=== PATIENT | female | born 1965 | race Two or more races ===

== ENCOUNTER 2020-08-28 18:22 | Emergency (ER) | payer MEDICARE, MEDICAID, SELFPAY ==
[2020-08-28 20:10] VITALS: BP 118/68; PULSE 75; RESP 16; TEMP 36.8; O2SAT 98; BMI 29.2
[2020-08-28] MEDS: Lidocaine HCl 1 % MPF 5 ML VIAL SUBCUT (21:17)
[2020-08-28] MEDS: Lidocaine 4 % Cream KIT 1 APPL TOPICAL (21:17)
[2020-08-28 22:23] VITALS: BP 116/63; PULSE 70; RESP 16; TEMP 37.3; O2SAT 98
--- NOTE | 2020-08-28 22:32 | ED.SKABFB ---
HPI - Skin/Abscess/Foreign Bdy General Chief complaint: Skin/Abscess/Foreign Body Stated complaint: cyst Time Seen by Provider: 08/28/20 21:06 Source: patient Mode of arrival: ambulatory Limitations: no limitations History of Present Illness HPI narrative: Left medial breast cutaneous abscess. States history of this had an appointment today to get it drained at the breast center at [facility] however the provider was out sick so had to be canceled so [facility] emergency room for drainage. Denies any fever or chills. States she has had similar type cyst in the past requiring I&D. Has had a mammo in the past as well at [facility]. Denies any fever or chills. complaint: abscess/boil Onset (ago): day(s) (5) Tetanus up to date: yes Location: chest (Left breast) Severity: moderate Relieving factors: none Exacerbating factors: none Associated symptoms: denies other symptoms Treatments prior to arrival: none Related Data Previous Rx's Medication Instructions Recorded cephalexin [Keflex] 500 mg PO TID 10 Days #30 cap 08/28/20 ibuprofen 800 mg PO Q8H PRN #30 tab 08/28/20 sulfamethoxazole-trimethoprim 1 tab PO BID 7 Days #14 tab 08/28/20 [Bactrim DS] Allergies Allergy/AdvReac Type Severity Reaction Status Date / Time No Known Allergies Allergy Unverified 05/16/20 16:25 Review of Systems Review of Systems: Constitutional: No Weight loss, No Fever, No Chills, No Night Sweats, No Fatigue, No Malaise ENT/Mouth: No Hearing loss, No Ear Pain, No Nasal Congestion, No Sinus Pain, No Hoarseness, No sore throat, No Rhinorrhea, No Swallowing Difficulty Eyes: No Eye Pain, No Swelling, No Redness, No Foreign Body, No Discharge, No Vision Changes Cardiovascular: No Chest Pain, No SOB, No Dyspnea on Exertion, No Orthopnea, No Edema, No Palpitations Respiratory: No Cough, No Sputum, No Wheezing, No Smoke Exposure, No Dyspnea Gastrointestinal: No Nausea, No Vomiting, No Diarrhea, No Constipation, No abdominal Pain, No Hematochezia, No Melena Genitourinary: no irregular bleeding, No Dysuria, No Urinary Frequency, No Hematuria, No Urinary Incontinence, No Urgency, No Flank Pain Musculoskeletal: No joint pain, No Myalgias, No Joint Swelling Skin: as noted in HPI Neuro: No Headache Psych: No Social Issues Heme/Lymph: No Bruising, No Bleeding,No Lymphadenopathy Endocrine: No Polyuria, No Polydipsia, No Temperature Intolerance Yes all other systems are reviewed and are negative [facility] Social History Social History Alcohol intake: never Smoked in Last 30 Days: No Use of substances other than those prescribed or required for medical reasons: No Advance Directives: No Advance Directives Information Provided: Yes Physical Exam Vital Signs: Vital Signs: Last Vital Signs Temp 99.1 F 08/28/20 22:23 Pulse 70 08/28/20 22:23 Resp 16 08/28/20 22:23 BP 116/63 08/28/20 22:23 Pulse Ox 98 08/28/20 22:23 Body Mass Index 29.2 Reviewed Const: General: cooperative and healthy appearing; No acute distress or intoxicated appearing Nutritional Appearance: average body habitus Orientation/consciousness: patient oriented x3 Neck: Neck: Yes normal visual inspection, No positive Brudzinski's sign, No positive Kernig's sign and No tender Thyroid: Thyroid normal Chest: Chest palpation & inspection: normal inspection of the chest Chest/axillae images: 1. 3 cm annular superficial indurated formed abscess. 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 No complications. Drained small amount of purulent discharge.) MDM - Skin/Abscess/Foreign Bdy Differential Diagnosis Differential diagnosis: Likely abscess of skin or subcutaneous tissue and cellulitis; Unlikely viral exanthem, urticaria, herpes zoster, allergic reaction to drug and impetigo Medical Records Attestation: I reviewed the patient's medical records. Lab Data Attestation: I reviewed the patient's lab results. Discharge Plan Discharge Clinical Impression: Abscess of skin or subcutaneous tissue Patient Disposition: Home, Self-Care Instructions: Abscess Incision and Drainage (DC) Additional Instructions: Keep site clean and dry May wash with soap and water Start with the antibiotic as prescribed Follow-up with the breast Center at [facility] as planned Return if any concerns or worsening symptoms Thank you Prescriptions: New cephalexin [Keflex] 500 mg capsule 500 mg PO TID 10 Days Qty: 30 RF: 0 sulfamethoxazole-trimethoprim [Bactrim DS] 800-160 mg tablet 1 tab PO BID 7 Days Qty: 14 RF: 0 ibuprofen 800 mg tablet 800 mg PO Q8H PRN (Reason: pain) Qty: 30 RF: 0 Referrals: Villa Perez MD [Primary Care Provider] - 1 week Interventions: ED Discharge Assessment Last Done: 08/28/20 22:55 Discharge Date/Time: 08/28/20 22:55
== END 2020-08-28 22:55 | disposition home or self-care (01) ==
PROVIDERS: Emergency Provider Emergency Medicine; PCP Family Medicine
DX: N61.1 Abscess of the breast and nipple (principal)
CPT/HCPCS: 10060; 99284

== ENCOUNTER 2021-04-15 17:09 | Emergency (ER) | payer MEDICARE, MEDICAID, SELFPAY ==
--- NOTE | 2021-04-15 18:45 | ED.URI ---
HPI - URI/Sore Throat General Chief Complaint: Upper Respiratory Symptoms Stated Complaint: covid symptoms Time Seen by Provider: 04/15/21 18:45 Source: patient Mode of arrival: ambulatory Limitations: no limitations History of Present Illness HPI Narrative: 55 y/o femal elliot is fully vaccinated against COVID-19 presents to the ER with COVID symptoms after known exposure to 4 of her family members who were diagnosed with the disease. She has had 5 days of dry cough, chest tightness, subjective fevers and body aches. She is not short of breath. She is breathing with ease. MD elicited complaint: fever and cough Onset (ago): day(s) (5) Consistency: intermittent Severity: moderate Able to tolerate fluids by mouth: Yes Exacerbating factors: exertion Relieving factors: OTC cold medicine Context: sick contacts Associated symptoms: fever, chills, myalgias, headache and chest pain Treatments prior to arrival: none Related Data Previous Rx's Medication Instructions Recorded cephalexin 500 mg capsule (Keflex) 500 mg PO TID 10 Days #30 cap 08/28/20 ibuprofen 800 mg tablet 800 mg PO Q8H PRN #30 tab 08/28/20 sulfamethoxazole 800 1 tab PO BID 7 Days #14 tab 08/28/20 mg-trimethoprim 160 mg tablet (Bactrim DS) Allergies Allergy/AdvReac Type Severity Reaction Status Date / Time No Known Allergies Allergy Verified 04/15/21 18:54 Review of Systems Review of Systems: Constitutional: + Fever, + Chills ENT/Mouth: No sore throat, No Rhinorrhea, No Swallowing Difficulty Cardiovascular: + Chest Pain (tightness), No SOB, No Orthopnea, No Edema Respiratory: + Cough, No Sputum, No Wheezing, No dyspnea Gastrointestinal: No Nausea, No Vomiting, No Diarrhea, No abdominal Pain Genitourinary: No Dysuria, No Urinary Frequency, No Hematuria Musculoskeletal: No joint pain, + Myalgias Skin: No Skin Lesions, No rash Neuro: No Weakness, No Numbness, No Dizziness, + Headache Psych: + Anxiety/Panic Heme/Lymph: No Lymphadenopathy PMFSH Past Medical History Attestation statement: The following information was validated with the patient. Medical History Arthritis Tachycardia Social History Social History Alcohol intake: never Advance Directives: No Advance Directives Information Provided: Yes Patient : No Physical Exam Vital Signs: Vital Signs: Last Vital Signs Temp 96.7 F L 04/15/21 18:54 Pulse 68 04/15/21 18:54 Resp 20 04/15/21 18:54 BP 114/71 04/15/21 18:54 Pulse Ox 97 04/15/21 18:54 Body Mass Index 30.1 Appearance: Alert. Oriented X3. No acute distress. Eyes: Pupils equal, round and reactive to light. ENT: Pharynx normal. Neck: Normal inspection. Neck supple. CVS: Normal heart rate and rhythm. Pulses normal. Respiratory: No respiratory distress. Breath sounds normal. Abdomen: Soft and nontender. +BS x4 Skin: Skin warm and dry. Normal skin color. Normal skin turgor. No rashes. Extremities: No lower extremity edema. Neuro: Oriented X 3. No motor deficit. No sensory deficit. Course Course Course Narrative: 55 y/o female with history of COVID vaccination who presents with COVID symptoms in the setting of known exposure. Her VS are normal and her exam is benign. COVID swab pending. Reevaluation(s) Reevaluation #1: Found to be COVID positive. She was counseled with the help with staff antisubmarine officer - educated on expected course, management and warning signs to prompt urgent re-evaluation. All questions were answered and patient is stable for discharge home. MDM - URI/Sore Throat Lab Data Labs: Lab Results 04/15/21 Range/Units 17:33 Coronavirus (PCR) POSITIVE A (Negative) Influenza Type A (PCR) NEGATIVE (Negative) Influenza Type B (PCR) NEGATIVE (Negative) RSV RNA Qual (PCR) NEGATIVE (Negative) Discharge Plan Discharge Clinical Impression: COVID-19 Patient Disposition: Home, Self-Care Instructions: COVID-19 (Coronavirus Disease 2019) (ED) Additional Instructions: You were found to be COVID-19 POSITIVE today. Your chest x-ray and oxygen levels were normal. Rest. Drink plenty of fluids. Do not go out in public for the next 10 days. Take over the counter cold/flu medications as needed for your symptoms. Take Tylenol and/or Motrin as needed for fevers and body aches. Follow up with your doctor this week. If you shortness of breath worsens , if you develop difficulty breathing or any other concerning symptom come back to the ER for further evaluation. Se descubri? que hoy es COVID-19 POSITIVO. La radiograf?a de t?rax y los niveles de ox?marie vladimir normales. [place]. Beber mucho l?quido. No salga en p?blico mark los pr?ximos 10 d?as. [place] medicamentos de venta marco antonio para el resfriado / la gripe seg?n sea necesario para dl s?ntomas. [place] Tylenol y / o Motrin seg?n sea necesario para la fiebre y los eric corporales. Lara un seguimiento con boswell m?dico esta semana. Si boswell dificultad para respirar empeora, si presenta dificultad para respirar o cualquier otro s?ntoma preocupante, regrese a la marcella de emergencias para juliano evaluaci?n adicional. Prescriptions: No Action cephalexin [Keflex] 500 mg capsule 500 mg PO TID 10 Days Qty: 30 RF: 0 sulfamethoxazole-trimethoprim [Bactrim DS] 800-160 mg tablet 1 tab PO BID 7 Days Qty: 14 RF: 0 ibuprofen 800 mg tablet 800 mg PO Q8H PRN (Reason: pain) Qty: 30 RF: 0 Stand Alone Forms: Work/School Release Print Language: Latvian
[2021-04-15 18:54] VITALS: BP 114/71; PULSE 68; RESP 20; TEMP 35.9; O2SAT 97; BMI 30.1
[2021-04-15 19:40] LABS: Influenza A PCR NEGATIVE (Negative); Influenza B PCR NEGATIVE (Negative); Resp Syncy Virus RNA Qual PCR NEGATIVE (Negative); SARS COV2 PCR INHOUSE POSITIVE (Negative)
== END 2021-04-15 20:33 | disposition home or self-care (01) ==
PROVIDERS: Emergency Provider Emergency Medicine
DX: U07.1 COVID-19 (principal)
CPT/HCPCS: 0241U; 36415; 99282; 99283

== ENCOUNTER 2021-06-12 17:53 | Outpatient (REF) | payer MEDICARE, MEDICAID, SELFPAY | END 2021-06-12 17:54 | disposition home or self-care (01) | LOC: HO.MRI 17:53 | PROVIDERS: Visit Provider Internal Medicine | DX: Z13.89 Encounter for screening for other disorder (principal) ==

== ENCOUNTER 2022-05-22 13:11 | Outpatient (REF) | payer MEDICARE, MEDICAID, SELFPAY ==
--- NOTE | ~2022-05-22 | US_ITS ---
EXAMINATION: US ABDOMEN COMPLETE CLINICAL INFORMATION: Right upper quadrant pain. COMPARISON: CT abdomen and pelvis 04/09/2019. Ultrasound abdomen complete 01/16/2016. TECHNIQUE: Real-time imaging of the abdominal viscera. FINDINGS: PANCREAS: Normal. ABDOMINAL AORTA: The proximal, mid, and distal segments are normal in caliber. INFERIOR VENA CAVA: Visualized portions are normal. LIVER: The liver is normal in size. The liver contour is normal. Liver echotexture is slightly increased. No focal hepatic lesion. There is no intrahepatic biliary duct dilatation seen. GALLBLADDER: Normal. The gallbladder is physiologically distended without evidence of stones, sludge, polyps, wall thickening or pericholecystic fluid. COMMON BILE DUCT: Normal in caliber measuring 0.4 cm in diameter. RIGHT KIDNEY: There is a 3 mm echogenic density in the midpole questionable for a stone. No hydronephrosis or focal parenchymal lesions. The kidney measures 10.8 cm in maximum dimension. LEFT KIDNEY: Normal. No hydronephrosis. No renal calculi or focal parenchymal lesions. The kidney measures 10.4 cm in maximum dimension. SPLEEN: Normal. The spleen measures 10.0 cm in maximum dimension. FREE FLUID: None. US/US abdomen complete IMPRESSION: Slightly echogenic liver probably representing fatty infiltration. Probable right renal stone.
== END 2022-05-22 13:12 | disposition home or self-care (01) ==
LOC: HO.US 13:11
PROVIDERS: PCP Nurse Practitioner; Visit Provider Internal Medicine
DX: R10.11 Right upper quadrant pain (principal)
CPT/HCPCS: 76700

== ENCOUNTER 2022-07-03 18:57 | Emergency (ER) | payer MEDICARE, MEDICAID, SELFPAY ==
--- NOTE | ~2022-07-03 | CT_ITS ---
EXAMINATION: CT HEAD WITHOUT CONTRAST CLINICAL INFORMATION: Elevated blood pressure COMPARISON: 05/09/2020 TECHNIQUE: Contiguous axial imaging was performed from the skull base to vertex without intravenous administration of contrast. This CT examination was performed using dose optimization techniques as appropriate, variously including the following: *Automated exposure control *Adjustment of mA and/or kV according to patient size (this includes techniques or standardized protocols for targeted exams where dose is matched to indication/reason for exam; i.e. extremities or head) *Use of iterative reconstruction technique DLP: 641 mGy-cm FINDINGS: There is no evidence of acute intracranial hemorrhage or territorial infarction. No abnormal mass-effect or midline shift is seen. Santizo to white matter differentiation is well preserved. No extra-axial fluid collections are identified. The ventricles are normal in size. There is no abnormal attenuation within the brain parenchyma. The osseous structures and soft tissues are normal. The mastoid air cells and visualized portions of the paranasal sinuses are well-aerated. CT/CT head/brain wo IV con IMPRESSION: No acute intracranial pathology.
[2022-07-03 19:28] VITALS: BP 141/79; PULSE 73; RESP 18; TEMP 36.1; O2SAT 99; BMI 32.4
[2022-07-03 19:51] LABS: MANUAL DIFF FLAG NO
[2022-07-03 19:54] LABS: Basophils Percent Auto 0.1 % (0-2); Hematocrit 41.8 % (37.0-47.0); Hemoglobin 13.8 g/dl (12.0-16.0); Imm Gran Abs Auto 0.11 X10*3/uL (0.00-0.03); Imm Gran Pct Auto 0.7 % (0.0-0.4); Lymphocytes Absolute Auto 2.6 X10*3/uL (1.2-4.9); Lymphocytes Percent Auto 16.1 % (20-40); Mean Corpuscular Hemoglobin 29.4 pg (27.0-33.0); Mean Corpuscular Volume 89.1 fL (80.0-98.0); Mean Platelet Volume 9.3 fL (9.4-12.3); Monocytes Absolute Auto 1.1 X10*3/uL (0.1-1.2); Monocytes Percent Auto 6.5 % (2-11); Neutrophils Absolute Auto 12.5 x10*3/uL (2.0-8.3); Neutrophils Percent Auto 76.6 % (45-73); Platelet Count 412 X10*3/uL (160-400); Red Blood Count 4.69 X10*6/uL (4.20-5.50); Red Cell Distribution Width 12.9 % (11.0-16.0); White Blood Count 16.4 X10*3/uL (4.8-10.8)
[2022-07-03 20:25] LABS: Anion Gap 16 (12-20); Blood Urea Nitrogen 24 mg/dL (9-16); Calcium 9.7 mg/dL (8.4-10.2); Carbon Dioxide 24 mmol/L (22-29); Chloride 106 mmol/L (96-108); Creatinine Clr Calc Pharmacy 78.2; Estimated Glomerular Filt Rate > 60; Glucose Random 110 mg/dL (60-115); Potassium 4.3 mmol/L (3.3-5.1); Sodium 142 mmol/L (135-145)
[2022-07-03 20:33] LABS: Troponin-I High Sensitivity < 3.5 ng/L (<3.5-17.0)
[2022-07-04 00:18] VITALS: BP 131/79; PULSE 69; RESP 16; TEMP 36.6; O2SAT 97
[2022-07-04] MEDS: Acetaminophen 325 MG TABLET 975 MG PO (00:50)
--- NOTE | 2022-07-04 01:14 | ED_ITS ---
HPI - Chest Pain General Chief Complaint: Chest Pain Stated Complaint: high BP, headache, history of heart problem Time Seen by Provider: 07/04/22 00:39 Source: patient Mode of arrival: ambulatory Limitations: no limitations History of Present Illness HPI narrative: Patient comes to the emergency room complaining of a migraine headache. Patient states also that yesterday she had an episode of chest pain that is all resolved and has not had any chest pain for over 24 hours. Patient states that the migraine headache started sudden, took her blood pressure, was in the 170s to 180s. By the time she came to the emergency room, blood pressure was 140/79, in triage patient got Tylenol. By the time I saw the patient, patient has no headache, no chest pain. Patient is asymptomatic other than complaining of an xiety Related Data Previous Rx's Medication Instructions Recorded cephalexin 500 mg capsule (Keflex) 500 mg PO TID 10 days #30 caps 08/28/20 ibuprofen 800 mg tablet 800 mg PO Q8H PRN pain #30 tabs 08/28/20 sulfamethoxazole 800 1 tab PO BID 7 days #14 tabs 08/28/20 mg-trimethoprim 160 mg tablet (Bactrim DS) dextromethorphan HBr 15 mg/5 mL 15 mg (5 mL) PO Q8H PRN cough #118 04/15/21 oral syrup (Tussin Maximum mL Strength Cough) Allergies Allergy/AdvReac Type Severity Reaction Status Date / Time No Known Allergies Allergy Verified 04/15/21 18:54 Review of Systems Review of Systems: Constitutional : No Weight loss, No Fever, No Chills, No Night Sweats, No Fatigue, No Malaise ENT/Mouth : No Hearing loss, No Ear Pain, No Nasal Congestion, No Sinus Pain, No Hoarseness, No sore throat, No Rhinorrhea, No Swallowing Difficulty Eyes: No Eye Pain, No Swelling, No Redness, No Foreign Body, No Discharge, No Vision Changes Cardiovascular : No Chest Pain, No SOB, No Dyspnea on Exertion, No Orthopnea, No Edema, No Palpitations Respiratory : No Cough, No Sputum, No Wheezing, No Smoke Exposure, No Dyspnea Gastrointestinal : No Nausea, No Vomiting, No Diarrhea, No Constipation, No abdominal Pain, No Hematochezia, No Melena Genitourinary : no irregular bleeding, No Dysuria, No Urinary Frequency, No Hematuria, No Urinary Incontinence, No Urgency, No Flank Pain, No Urinary Flow Changes, No Hesitancy Musculoskeletal : No joint pain, No Myalgias, No Joint Swelling Skin : No Skin Lesions, No rash Neuro : No Weakness, No Numbness, No Paresthesias, No Loss of Consciousness, No Dizziness, complaining of Headache that resolved with Tylenol Psych : No Anxiety/Panic, No Depression, No SI/HI/AH/VH, No Social Issues, Heme/Lymph: No Bruising, No Bleeding,No Lymphadenopathy Endocrine : No Polyuria, No Polydipsia, No Temperature Intolerance REPLACED BY [facility] Past Medical History Medical History Arthritis Migraine Tachycardia Social History Social History Alcohol intake: never Advance Directives: No Advance Directives Information Provided: No Physical Exam Vital Signs: Vital Signs: Last Vital Signs Temp 97.9 F 07/04/22 00:18 Pulse 69 07/04/22 00:18 Resp 16 07/04/22 00:18 BP 131/79 07/04/22 00:18 Pulse Ox 97 07/04/22 00:18 O2 Del Method 07/04/22 00:18 BMI result Body Mass Index 32.4 Const: Other: Appearance: Alert. Oriented X3. No acute distress. Well appearing, speaking on the phone Eyes: Pupils equal, round and reactive to light. ENT: Pharynx normal. Neck: Normal inspection. Neck supple. No lymph nodes noted. No crepitus, no neck rigidity, patient had normal flexion and extension with no pain and has normal range of motion CVS: Normal heart rate and rhythm. Pulses normal. Normal S1 and S2 Respiratory: No respiratory distress. Breath sounds normal. No Wheezing. No rales Abdomen: Soft and nontender. No rigidity. No distention. Skin: Skin warm and dry. Normal skin color. Normal skin turgor. Extremities: No lower extremity edema. No Lacerations. No Rash Neuro: Oriented X 3. No motor deficit. No sensory deficit. Moving all extremities. No slurred speech. CN 2 through 12 grossly intact Psych: calm, cooperative, normal affect Course Course Course Narrative: At this time patient is asymptomatic, no longer having headache or chest pain or shortness of breath or any symptoms at all. Patient's headache resolved after taking Tylenol. Patient states that she takes metoprolol every day daily 50 mg. Here in the emergency room patient has not been significantly hypertensive, blood pressure now is 131/79. Patient's white blood cell count is 16.4. Patient has no URI symptoms no UTI symptoms, no meningeal symptoms, no abdominal pain. Chemistry within normal limits CT scan negative. Patient is asymptomatic. MDM - Chest Pain Lab Data Result diagrams: 07/03/22 19:39 07/03/22 19:39 Labs: Lab Results 07/03/22 07/03/22 07/03/22 Range/Units 19:39 19:39 19:39 WBC 16.4 H (4.8-10.8) X10*3/uL RBC 4.69 (4.20-5.50) X10*6/uL Hgb 13.8 (12.0-16.0) g/dl Hct 41.8 (37.0-47.0) % MCV 89.1 (80.0-98.0) fL MCH 29.4 (27.0-33.0) pg MCHC 33.0 (31.0-35.0) g/dl RDW 12.9 (11.0-16.0) % Plt Count 412 H (160-400) X10*3/uL MPV 9.3 L (9.4-12.3) fL Immature Gran % (Auto) 0.7 H (0.0-0.4) % Neut % (Auto) 76.6 H (45-73) % Lymph % (Auto) 16.1 L (20-40) % [place] % (Auto) 6.5 (2-11) % Eos % (Auto) 0.0 (0-4) % Baso % (Auto) 0.1 (0-2) % Lymph # (Auto) 2.6 (1.2-4.9) X10*3/uL [place] # (Auto) 1.1 (0.1-1.2) X10*3/uL Eos # (Auto) 0.0 (0.0-0.4) X10*3/uL Baso # (Auto) 0.0 (0.0-0.2) X10*3/uL Abs Immat Gran (auto) 0.11 H (0.00-0.03) X10*3/uL Absolute Neuts (auto) 12.5 H (2.0-8.3) x10*3/uL Absolute Nucleated RBC 0.000 (0.0-0.012) X10*3/uL Nucleated RBC % (auto) 0.0 (0.0-0.2) /100WBC Sodium 142 (135-145) mmol/L Potassium 4.3 (3.3-5.1) mmol/L Chloride 106 (96-108) mmol/L Carbon Dioxide 24 (22-29) mmol/L Anion Gap 16 (12-20) BUN 24 H (9-16) mg/dL Creatinine 0.81 (0.5-1.4) mg/dL Estim Creat Clear Calc 78.2 Estimated GFR > 60 Random Glucose 110 (60-115) mg/dL Calcium 9.7 (8.4-10.2) mg/dL Troponin I High Sens < 3.5 (<3.5-17.0) ng/L Imaging Data CT scan - head: Radiologist's impression: FINDINGS: There is no evidence of acute intracranial hemorrhage or territorial infarction. No abnormal mass-effect or midline shift is seen. Santizo to white matter differentiation is well preserved. No extra-axial fluid collections are identified. The ventricles are normal in size. There is no abnormal attenuation within the brain parenchyma. The osseous structures and soft tissues are normal. The mastoid air cells and visualized portions of the paranasal sinuses are well-aerated. ? CT/CT head/brain wo IV con IMPRESSION: No acute intracranial pathology. Discharge Plan Discharge Clinical Impression: Headache, Atypical chest pain Patient Disposition: Home, Self-Care Instructions: Chest Pain (ED), Acute Headache (ED) Additional Instructions: Your head CT is normal. Please follow-up with your primary care physician tomorrow. If you have any worsening or new symptoms, please return to the emergency room or call 911 Prescriptions: No Action cephalexin [Keflex] 500 mg capsule 500 mg PO TID 10 Days Qty: 30 0RF sulfamethoxazole-trimethoprim [Bactrim DS] 800-160 mg tablet 1 tab PO BID 7 Days Qty: 14 0RF ibuprofen 800 mg tablet 800 mg PO Q8H PRN (Reason: pain) Qty: 30 0RF Tussin Maximum Strength Cough 15 mg/5 mL syrup 15 mg PO Q8H PRN (Reason: cough) Qty: 118 0RF
== END 2022-07-04 02:43 | disposition home or self-care (01) ==
PROVIDERS: Emergency Provider Emergency Medicine; PCP Nurse Practitioner
DX: R07.89 Other chest pain (principal); R51.9 Headache, unspecified; Z79.899 Other long term (current) drug therapy
CPT/HCPCS: 36415; 70450; 80048; 84484; 85025; 99284

== ENCOUNTER 2022-07-10 19:44 | Emergency (ER) | payer MEDICARE, MEDICAID, SELFPAY ==
[2022-07-10 20:00] VITALS: BP 129/63; BP 148/70; PULSE 70; PULSE 72; RESP 18; TEMP 36.5; O2SAT 98; O2SAT 99; BMI 34.0
--- NOTE | 2022-07-10 20:54 | ECG_ITS ---
Test Reason : DIZZINESS Blood Pressure : / mmHG Vent. Rate : 071 BPM Atrial Rate : 071 BPM P-R Int : 160 ms QRS Dur : 076 ms QT Int : 392 ms P-R-T Axes : 052 048 058 degrees QTc Int : 425 ms Normal sinus rhythm Normal ECG When compared with ECG of 22-MAY-2019 17:14, No significant change was found Referred By: Iona Tyler Electronically Signed By:ALEXANDRA HATFIELD MD
[2022-07-10 21:29] LABS: MANUAL DIFF FLAG NO
[2022-07-10] MEDS: 0.9 % Sodium Chloride 1,000 ML 999 ML IV (21:29)
[2022-07-10 21:31] LABS: Basophils Percent Auto 0.2 % (0-2); Eosinophils Percent Auto 0.1 % (0-4); Hematocrit 40.4 % (37.0-47.0); Hemoglobin 13.3 g/dl (12.0-16.0); Imm Gran Abs Auto 0.13 X10*3/uL (0.00-0.03); Imm Gran Pct Auto 0.6 % (0.0-0.4); Lymphocytes Absolute Auto 2.3 X10*3/uL (1.2-4.9); Lymphocytes Percent Auto 9.9 % (20-40); Mean Corpuscular HGB Conc 32.9 g/dl (31.0-35.0); Mean Corpuscular Hemoglobin 30.1 pg (27.0-33.0); Mean Corpuscular Volume 91.4 fL (80.0-98.0); Mean Platelet Volume 9.1 fL (9.4-12.3); Monocytes Absolute Auto 1.5 X10*3/uL (0.1-1.2); Monocytes Percent Auto 6.5 % (2-11); Neutrophils Percent Auto 82.7 % (45-73); Platelet Count 336 X10*3/uL (160-400); Red Blood Count 4.42 X10*6/uL (4.20-5.50); White Blood Count 22.9 X10*3/uL (4.8-10.8)
--- NOTE | 2022-07-10 21:32 | PC.NURSE ---
patient a&ox3, family at bedside, labs drawn, ivf started per order, tech to obtain swab, call andrews within reach, will continue to monitor
[2022-07-10 21:34] LABS: Appearance Urine Clear; Color Urine Dark Yellow; Glucose Urine UA Negative (Negative); Leukocyte Esterase Urine Small (1+) (Negative); Nitrite Urine Negative (Negative); PH 5.5 (5.0-9.0); UMIC TRIGGER UACC YES; Urine Blood Negative (Negative); Urine Ketones Trace mg/dL (Negative); Urine Protein 30 (1+) mg/dL (Neg-Trace)
[2022-07-10 21:46] LABS: Alanine Aminotransferase 28 U/L (0-31); Alkaline Phosphatase 99 U/L (39-117); Anion Gap 17 (12-20); Aspartate Amino Transferase 14 U/L (5-31); Bilirubin Total 0.2 mg/dL (0.0-1.0); Blood Urea Nitrogen 25 mg/dL (9-16); Calcium 9.1 mg/dL (8.4-10.2); Carbon Dioxide 25 mmol/L (22-29); Chloride 104 mmol/L (96-108); Creatinine Clr Calc Pharmacy 65.5; Estimated Glomerular Filt Rate 58; Glucose Random 139 mg/dL (60-115); Potassium 3.9 mmol/L (3.3-5.1); Sodium 142 mmol/L (135-145); Total Protein 6.7 g/dL (6.5-8.0)
[2022-07-10 21:51] LABS: Troponin-I High Sensitivity < 3.5 ng/L (<3.5-17.0)
[2022-07-10 21:54] LABS: Bacteria Urine None Seen (None Seen); Granular Casts Urine Present; RBC Urine 0-2 /HPF (0-2); Squamous Epithelial Cell Urine 0-2 /HPF (0-2); UACC Culture Trigger YES; WBC Urine 0-5 /HPF (0-5)
[2022-07-10 22:17] VITALS: BP 133/62; PULSE 72; RESP 16; TEMP 36.6; O2SAT 99
[2022-07-10 22:20] LABS: Influenza A PCR NEGATIVE (Negative); Influenza B PCR NEGATIVE (Negative); Resp Syncy Virus RNA Qual PCR NEGATIVE (Negative); SARS COV2 PCR INHOUSE NEGATIVE (Negative)
--- NOTE | 2022-07-10 22:30 | ED_ITS ---
HPI - Headache General Chief Complaint: Headache Stated Complaint: Dizzy Time Seen by Provider: 07/10/22 20:36 Source: patient, family and certified court interpreter Mode of arrival: EMS History of Present Illness HPI Narrative: 56-year-old female arrives via EMS from home with complaints of headache x1 week that she describes as a tingling/numbness feeling across the left side of her scalp and denies any association with vision/speech/auditory changes. On review of patient's documentation she was evaluated for headaches at her last visit which included a head CT which did not demonstrate any acute findings. Patient has followed up with Neurology who has ordered an outpatient MRI which is scheduled for 07/16. Patient presents via EMS today for having gone to the bathroom and then come out and was complaining to her of feeling lighth eaded as well as diaphoretic but denies any shortness of breath, chest pain/palpitations and denies any perioral tingling but states she did have tingling in bilateral hands. The who is at bedside and facility stating interpretation states that he caught her and gently lowered her to the ground. Patient does take oxycodone, meclizine, as well as Ambien. Related Data Previous Rx's Medication Instructions Recorded cephalexin 500 mg capsule (Keflex) 500 mg PO TID 10 days #30 caps 08/28/20 ibuprofen 800 mg tablet 800 mg PO Q8H PRN pain #30 tabs 08/28/20 sulfamethoxazole 800 1 tab PO BID 7 days #14 tabs 20 mg-trimethoprim 160 mg tablet (Bactrim DS) dextromethorphan HBr 15 mg/5 mL 15 mg (5 mL) PO Q8H PRN cough #118 04/15/21 oral syrup (Tussin Maximum mL Strength Cough) Allergies Allergy/AdvReac Type Severity Reaction Status Date / Time No Known Allergies Allergy Verified 04/15/21 18:54 Review of Systems Review of Systems: Pertinent positives and negatives as stated in HPI 10 point review of systems is otherwise negative. [facility] Past Medical History Medical History Arthritis Migraine Tachycardia Social History Social History Alcohol intake: never Smoked in Last 30 Days: No Use of substances other than those prescribed or required for medical reasons: No Advance Directives: No Advance Directives Information Provided: No Patient : No Physical Exam Vital Signs: Vital Signs: Last Vital Signs Temp 97.9 F 07/10/22 22:17 Pulse 72 07/10/22 22:17 Resp 16 07/10/22 22:17 BP 133/62 07/10/22 22:17 Pulse Ox 99 07/10/22 22:17 O2 Del Method 07/10/22 22:17 BMI result Body Mass Index 34.0 Course Course Course Narrative: 56-year-old female with history and clinical presentation consistent with v asovagal near-syncope of unclear etiology. Patient is receiving 1 L of IV fluids and when questioned regarding her headache she states that everything feels calm and so no analgesics were provided to the patient. Patient is otherwise nonfocal, review of EKG does not show QT or QRS prolongation. And suspect that this may have been related with patient's home medication use. On review of all investigations there is an inexplicable leukocytosis of 22.9, abdominal exam is benign, urinalysis is without acute findings and patient denies any acute cough or sore throat. In addition, patient is afebrile. All results discussed with the patient at bedside and she was strongly encouraged to follow-up with the primary care provider as well as neurologist by calling the office is on Wednesday morning. Obtained a procalcitonin given the fact that patient is noted to have a leukocytosis without any evidence of active infection and it is inconsistent with bacterial infection. Unclear specific etiology and instructed to follow-up with her primary care provider. Medications Administered Discontinued Medications Generic Name Dose Route Start Last Admin Trade Name Justenq PRN Reason Stop Dose Admin Sodium Chloride 1,000 mls @ 999 mls/hr 07/10/22 21:00 07/10/22 22:45 Ns IV 07/10/22 22:00 Infused .Q1H1M FERNIE Infusion MDM - Headache Lab Data Result diagrams: 07/10/22 21:23 07/10/22 21:24 Labs: Lab Results 07/10/22 07/10/22 07/10/22 Range/Units 21:23 21:24 21:24 WBC 22.9 H (4.8-10.8) X10*3/uL RBC 4.42 (4.20-5.50) X10*6/uL Hgb 13.3 (12.0-16.0) g/dl Hct 40.4 (37.0-47.0) % MCV 91.4 (80.0-98.0) fL MCH 30.1 (27.0-33.0) pg MCHC 32.9 (31.0-35.0) g/dl RDW 13.0 (11.0-16.0) % Plt Count 336 (160-400) X10*3/uL MPV 9.1 L (9.4-12.3) fL Immature Gran % (Auto) 0.6 H (0.0-0.4) % Neut % (Auto) 82.7 H (45-73) % Lymph % (Auto) 9.9 L (20-40) % [place] % (Auto) 6.5 (2-11) % Eos % (Auto) 0.1 (0-4) % Baso % (Auto) 0.2 (0-2) % Lymph # (Auto) 2.3 (1.2-4.9) X10*3/uL [place] # (Auto) 1.5 H (0.1-1.2) X10*3/uL Eos # (Auto) 0.0 (0.0-0.4) X10*3/uL Baso # (Auto) 0.0 (0.0-0.2) X10*3/uL Abs Immat Gran (auto) 0.13 H (0.00-0.03) X10*3/uL Absolute Neuts (auto) 19.0 H (2.0-8.3) x10*3/uL Absolute Nucleated RBC 0.000 (0.0-0.012) X10*3/uL Nucleated RBC % (auto) 0.0 (0.0-0.2) /100WBC Sodium 142 (135-145) mmol/L Potassium 3.9 (3.3-5.1) mmol/L Chloride 104 (96-108) mmol/L Carbon Dioxide 25 (22-29) mmol/L Anion Gap 17 (12-20) BUN 25 H (9-16) mg/dL Creatinine 0.99 (0.5-1.4) mg/dL Estim Creat Clear Calc 65.5 Estimated GFR 58 Random Glucose 139 H (60-115) mg/dL Calcium 9.1 D (8.4-10.2) mg/dL Total Bilirubin 0.2 (0.0-1.0) mg/dL AST 14 (5-31) U/L ALT 28 (0-31) U/L Alkaline Phosphatase 99 (39-117) U/L Troponin I High Sens < 3.5 (<3.5-17.0) ng/L Total Protein 6.7 (6.5-8.0) g/dL Albumin 4.0 (3.5-5.0) g/dL Procalcitonin ng/mL Urine Color Urine Appearance Urine pH (5.0-9.0) Ur Specific [place] (1.005-1.025) Urine Protein (Neg-Trace) mg/dL Urine Glucose (UA) (Negative) mg/dL Urine Ketones (Negative) mg/dL Urine Blood (Negative) Urine Nitrite (Negative) Ur Leukocyte Esterase (Negative) Urine RBC (0-2) /HPF Urine WBC (0-5) /HPF Ur Squamous Epith Cells (0-2) /HPF Urine Bacteria (None Seen) Hyaline Casts (0-2) /LPF Granular Casts Influenza Type A (PCR) (Negative) Influenza Type B (PCR) (Negative) RSV RNA Qual (PCR) (Negative) SARS-CoV-2 RNA (RT-PCR) (Negative) 07/10/22 07/10/22 07/10/22 Range/Units 21:24 21:24 21:34 WBC (4.8-10.8) X10*3/uL RBC (4.20-5.50) X10*6/uL Hgb (12.0-16.0) g/dl Hct (37.0-47.0) % MCV (80.0-98.0) fL MCH (27.0-33.0) pg MCHC (31.0-35.0) g/dl RDW (11.0-16.0) % Plt Count (160-400) X10*3/uL MPV (9.4-12.3) fL Immature Gran % (Auto) (0.0-0.4) % Neut % (Auto) (45-73) % Lymph % (Auto) (20-40) % [place] % (Auto) (2-11) % Eos % (Auto) (0-4) % Baso % (Auto) (0-2) % Lymph # (Auto) (1.2-4.9) X10*3/uL [place] # (Auto) (0.1-1.2) X10*3/uL Eos # (Auto) (0.0-0.4) X10*3/uL Baso # (Auto) (0.0-0.2) X10*3/uL Abs Immat Gran (auto) (0.00-0.03) X10*3/uL Absolute Neuts (auto) (2.0-8.3) x10*3/uL Absolute Nucleated RBC (0.0-0.012) X10*3/uL Nucleated RBC % (auto) (0.0-0.2) /100WBC Sodium (135-145) mmol/L Potassium (3.3-5.1) mmol/L Chloride (96-108) mmol/L Carbon Dioxide (22-29) mmol/L Anion Gap (12-20) BUN (9-16) mg/dL Creatinine (0.5-1.4) mg/dL Estim Creat Clear Calc Estimated GFR Random Glucose (60-115) mg/dL Calcium (8.4-10.2) mg/dL Total Bilirubin (0.0-1.0) mg/dL AST (5-31) U/L ALT (0-31) U/L Alkaline Phosphatase (39-117) U/L Troponin I High Sens (<3.5-17.0) ng/L Total Protein (6.5-8.0) g/dL Albumin (3.5-5.0) g/dL Procalcitonin 0.03 ng/mL Urine Color Dark Yellow Urine Appearance Clear Urine pH 5.5 (5.0-9.0) Ur Specific [place] 1.020 (1.005-1.025) Urine Protein 30 (1+) H (Neg-Trace) mg/dL Urine Glucose (UA) Negative (Negative) mg/dL Urine Ketones Trace (Negative) mg/dL Urine Blood Negative (Negative) Urine Nitrite Negative (Negative) Ur Leukocyte Esterase Small (1+) H (Negative) Urine RBC 0-2 (0-2) /HPF Urine WBC 0-5 (0-5) /HPF Ur Squamous Epith Cells 0-2 (0-2) /HPF Urine Bacteria None Seen (None Seen) Hyaline Casts 3-5 (0-2) /LPF Granular Casts Present Influenza Type A (PCR) NEGATIVE (Negative) Influenza Type B (PCR) NEGATIVE (Negative) RSV RNA Qual (PCR) NEGATIVE (Negative) SARS-CoV-2 RNA (RT-PCR) NEGATIVE (Negative) ECG Data Attestation: I personally reviewed and interpreted this ECG as follows: Prior ECG tracings: available for review Interpretation: Normal sinus rhythm, HR-71, no STEMI, [place]/QRS/QTC is within normal limits. Discharge Plan Discharge Clinical Impression: Migraine, Vasovagal near syncope, Leukocytosis Patient Disposition: Home, Self-Care Instructions: Migraine Headache (ED), Syncope (ED) Additional Instructions: 1. Reanudar todos los medicamentos caseros seg?n lo prescrito. 2. Mantenga dl citas seg?n lo programado. 3. Recomendar Tylenol/ibuprofeno de venta marco antonio seg?n sea necesario para el dolor de roxie. Regrese a la marcella de emergencias si los s?ntomas empeoran. Prescriptions: No Action cephalexin [Keflex] 500 mg capsule 500 mg PO TID 10 Days Qty: 30 0RF sulfamethoxazole-trimethoprim [Bactrim DS] 800-160 mg tablet 1 tab PO BID 7 Days Qty: 14 0RF ibuprofen 800 mg tablet 800 mg PO Q8H PRN (Reason: pain) Qty: 30 0RF Tussin Maximum Strength Cough 15 mg/5 mL syrup 15 mg PO Q8H PRN (Reason: cough) Qty: 118 0RF Referrals: Jaida Valle, DIRECTOR OF INFECTION PREVENTION [Primary Care Provider] - Print Language: [place] Island[place]
[2022-07-11 00:34] LABS: Procalcitonin 0.03 ng/mL
--- NOTE | 2022-07-11 00:50 | PC.NURSE ---
Urine culture showing as being ordered and was already sent down to lab along with urinalysis order. Spoke to chemistry and they said it would be run in the morning (pending).
--- NOTE | 2022-07-11 01:04 | PC.NURSE ---
Discharge instructions given and explained to pt. Pt ambulates safely and is alerty and oriented. All questions answered for patient.
== END 2022-07-11 01:02 | disposition home or self-care (01) ==
PROVIDERS: Emergency Provider Student in an Organized Health Care Education/Training Program; PCP Nurse Practitioner
DX: G43.909 Migraine, unspecified, not intractable, without status migrainosus (principal); R55 Syncope and collapse; R42 Dizziness and giddiness; D72.829 Elevated white blood cell count, unspecified; Z20.822 Contact with and (suspected) exposure to COVID-19; Z79.899 Other long term (current) drug therapy
CPT/HCPCS: 0241U; 36415; 80053; 81001; 84145; 84484; 85025; 87086; 93005; 96360; 99284

== ENCOUNTER 2024-02-23 14:31 | Emergency (ER) | payer MEDICARE, MEDICAID, SELFPAY ==
[2024-02-23 14:47] VITALS: BP 98/61; PULSE 101; RESP 17; TEMP 36.6; O2SAT 98; BMI 30.4
--- NOTE | 2024-02-23 14:49 | ED.GENADULT ---
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 (patient requested her partner interpret in Czech for her - patient offered but declined an [facility] manager of community relations) Mode of arrival: ambulatory Limitations: language barrier (patient requested her partner interpret in Czech for her - patient offered but declined an [facility] manager of community relations) History of Present Illness ED Provider: Sharlene Parra PA-C HPI narrative: Patient is a 58 year old assigned female at with no reported medical history presenting to the emergency department today with a headache, fever, and abdominal pain. Patient states that over the last few days she has felt generally unwell with a headache, fever, and abdominal pain. Patient states that she would like to be tested for COVID-19. Patient denies any dizziness, lightheadedness, nausea, vomiting, chills, blurry vision, double vision, loss of vision, chest pain, difficulty breathing, shortness of breath, back pain, night sweats, pain with urination, increased urinary frequency, increased urinary urgency, blood in her urine or stool, syncope or a near syncopal episode, recent trauma or falls, bowel incontinence, bladder incontinence, or any other complaints at this time. Onset (ago): day(s) Severity: mild Severity scale (1-10): 2 Relieving factors: none Exacerbating factors: none Associated symptoms: fever/chills and nausea/vomiting Treatments prior to arrival: other (Tylenol) Related Data Previous Rx's ?Medication ?Instructions ?Recorded cephalexin 500 mg capsule (Keflex) 500 mg PO TID 10 days #30 caps 08/28/20 ibuprofen 800 mg tablet 800 mg PO Q8H PRN pain #30 tabs 08/28/20 sulfamethoxazole 800 1 tab PO BID 7 days #14 tabs 08/28/20 mg-trimethoprim 160 mg tablet (Bactrim DS) dextromethorphan HBr 15 mg/5 mL 15 mg (5 mL) PO Q8H PRN cough #118 04/15/21 oral syrup (Tussin Maximum mL Strength Cough) Allergies Allergy/AdvReac Type Severity Reaction Status Date / Time No Known Allergies Allergy Verified 02/23/24 14:52 Review of Systems Constitutional: Constitutional: Reports no additional constitutional complaints, Denies chills, Reports fever(s), Reports headache(s) and Denies night sweats Eyes: Eyes: Reports no additional eye complaints, Denies blurry vision, Denies change in vision, Denies diplopia, Denies eye discharge, Denies loss of vision and Denies eye pain ENT: Denies dizziness and Reports headache(s) Cardiovascular: Cardiovascular: Reports no additional cardiovascular complaints, Denies chest pain, Denies lightheadedness, Denies Loss of Consciousness and Denies dyspnea Respiratory: Respiratory: Reports no additional respiratory complaints and Denies dyspnea Gastrointestinal: Gastrointestinal: Reports no additional gastrointestinal complaints, Reports abdominal pain, Denies melena, Denies hematochezia, Denies change in bowel habits and Denies change in stool character Genitourinary: Genitourinary: Denies hematuria, Denies urinary frequency, Denies dysuria, Denies urinary incontinence, Denies urinary hesitancy and Denies urinary urgency Musculoskeletal: Musculoskeletal: Reports no additional musculoskeletal complaints, Denies numbness and Denies tingling Neurologic: Denies dizziness, Reports headache(s), Denies loss of vision, Denies numbness and Denies tingling Psychiatric: Psychiatric: Reports no additional psychiatric complaints Endocrine: Endocrine: Reports no additional endocrine complaints Hematologic/Lymphatic: Hematologic/Lymphatic: Reports no additional hematologic/lymphatic complaints Allergic/Immunologic: Allergic/Immunologic: Reports no additional allergic/immunologic complaints PMFSH Past Medical History Attestation statement: The following information was validated with the patient. Source: old records reviewed and nursing notes reviewed Medical History Migraine Tachycardia Arthritis Social History Social History Alcohol intake: never Advance Directives: No Advance Directives Information Provided: No Do you have a plan to hurt others: No Plan Physical Exam ED Vital Signs: Vital Signs - 24 hr 02/23/24 14:47 02/23/24 17:11 Temperature 98 F 98 F Pulse Rate 101 H 101 H Respiratory Rate 17 17 Blood Pressure 98/61 98/61 Pulse Oximetry 98 98 BMI result Body Mass Index 30.4 Const General: cooperative, no acute distress, alert and awake Nutritional Appearance: well nourished Orientation/consciousness: patient oriented x3 Limitations: no limitations HENMT Head: Yes normal to inspection and Yes atraumatic Ears: hearing grossly normal bilaterally and external ears normal General nose exam: Normal external nose present, no nasal discharge noted and no epistaxis Face and sinus: Yes normal facial exam, No abrasion and No laceration Mouth: Normal oral and palatal mucosa present, no drooling and no muffled voice Eyes General: appearance normal, both eyes and all related structures Periorbital: periorbital findings normal Eyelids: Yes eyelids normal Conjunctivae: conjunctivae normal Pupils: Equal, round and reactive pupils present EOM: EOMs intact bilaterally Neck Neck: Yes normal visual inspection, Yes full ROM and Yes no lymphadenopathy Chest Chest palpation & inspection: normal inspection of the chest Resp Effort & Inspection: normal respiratory effort and able to speak in complete sentences GI Inspection: Yes normal to inspection Neuro General: patient oriented x3 and moves all extremities Cranial nerves: Yes Equal, round and reactive pupils present Cognition (Neuro): normal cognition Motor exam (neuro): 5/5 motor strength present throughout Sensory Exam: Normal double simultaneous stimulation for sensation Coordination: [id number] test normal Extrem General: Yes normal to inspection, Yes full ROM and Yes capillary refill normal Psych Appearance: grossly normal Mental Status: mental status grossly normal Affect: normal affect Attitude: cooperative Thought process: Normal thought process present Thought content: Normal thought content present Insight: Good insight present (Psych) Course Course Course Narrative: This is a Rapid Medical Examination (RME) performed by Angie Hicks PA-C in triage. Full HPI, ROS, assessment and treatment plan per primary provider in the Main ED. 58 yo gabonese speaking female here for eval of headache, subjective fevers, abdominal pain x2 days. taking tylenol, last dose around 1000 this morning. recently with [place] from [place] however no known sick contacts. boyfriend at home with similar symptoms. Requesting covid test. Denies SOB, chest pain, dizziness. afebrile. lungs cta. abd soft, ND/NT, no rebound or guarding. Plan: viral serology ordered Medical Decision Making Medical Decision Making [facility] Narrative: Patient is a 58 year old assigned female at with no reported medical history presenting to the emergency department today with a headache, abdominal pain, and fever. Patient's physical exam was unremarkable. Patient's COVID-19 test was positive. Patient's influenza, RSV, and strep tests were negative. I explained my physical exam findings as well as all test results to the patient. I answered all questions asked by the patient. I stressed the importance of the patient taking her medication as directed (either prescribed or as the over the counter packaging recommends). I stressed the importance of the patient following up with her primary care provider. I stressed the importance of the patient returning to the emergency department immediately if her symptoms were to worsen or if she were to develop any dizziness, shortness of breath, difficulty breathing, chest pain, blurry vision, loss of vision, nausea, vomiting, abdominal pain, fever, chills, back pain, or any other complaints. Patient verbalized agreement and understanding with this treatment plan and discharge. Differential Diagnosis Differential Diagnoses: The differential diagnosis associated with the presentation includes COVID-19 Influenza RSV Strep pharyngitis Viral illness URI Admission/Observation Consideration of admission/observation: Escalation of care including admission/observation considered Patient would have been admitted to the hospital had her work up had any findings where hospital admission was appropriate and her clinical presentation warranted hospital admission. Lab Data [facility] Lab Attestation statement: I reviewed the patient's lab results. My interpretation of these results are in the [facility] Rationale portion of this note. Labs: Lab Results 02/23/24 Range/Units 15:16 Influenza Type A (PCR) NEGATIVE (Negative) Influenza Type B (PCR) NEGATIVE (Negative) RSV RNA Qual (PCR) NEGATIVE (Negative) SARS-CoV-2 RNA (RT-PCR) POSITIVE A (Negative) S. pyogenes GrpA ROSEMARY Negative (Negative) Discharge Plan Discharge Clinical Impression: COVID-19 Patient Disposition: Home, Self-Care Instructions: COVID-19 (Coronavirus Disease 2019) (ED) Additional Instructions: Follow up with your primary care provider. Return to the emergency department immediately if your symptoms worsen or if you develop any dizziness, shortness of breath, difficulty breathing, chest pain, blurry vision, loss of vision, nausea, vomiting, abdominal pain, fever, chills, back pain, or any other complaints. Lara?seguimiento?con boswell m?dico de atenci?n primaria. Acuda inmediatamente al servicio de urgencias si dl s?ntomas empeoran o si presenta falta de aliento, dificultad para respirar, dolor tor?cico, mareos, aturdimiento, dolor de espalda, dolor abdominal, fiebre, escalofr?os o cualquier otro s?ntoma. Prescriptions: No Action cephalexin [Keflex] 500 mg capsule 500 mg PO TID 10 Days Qty: 30 0RF sulfamethoxazole-trimethoprim [Bactrim DS] 800-160 mg tablet 1 tab PO BID 7 Days Qty: 14 0RF ibuprofen 800 mg tablet 800 mg PO Q8H PRN (Reason: pain) Qty: 30 0RF Tussin Maximum Strength Cough 15 mg/5 mL syrup 15 mg PO Q8H PRN (Reason: cough) Qty: 118 0RF Referrals: [facility] [Provider Group] (Call to establish and follow up with a primary care provider. If you already have a primary care provider, please follow up with them.) [facility] [Provider Group] [facility] [Provider Group] Stand Alone Forms: Work/School Release Interventions: ED Discharge Assessment Last Done: 02/23/24 17:11 Discharge Date/Time: 02/23/24 17:11 Print Language: Czech
[2024-02-23 15:35] LABS: IDNOW Serial# 58CA691E; Strep A Nucleic Acid Negative (Negative)
[2024-02-23 16:05] LABS: Influenza A PCR NEGATIVE (Negative); Influenza B PCR NEGATIVE (Negative); Resp Syncy Virus RNA Qual PCR NEGATIVE (Negative); SARS COV2 PCR INHOUSE POSITIVE (Negative)
[2024-02-23 17:11] VITALS: BP 98/61; PULSE 101; RESP 17; TEMP 36.6; O2SAT 98
== END 2024-02-23 17:11 | disposition home or self-care (01) ==
PROVIDERS: Physician Assistant Medical; Emergency Provider Emergency Medicine
DX: U07.1 COVID-19 (principal); R51.9 Headache, unspecified; R50.9 Fever, unspecified; R10.9 Unspecified abdominal pain
CPT/HCPCS: 0241U; 87651; 99283

== ENCOUNTER 2024-06-21 09:02 | Day surgery (SDC) | payer MEDICARE, MEDICAID, SELFPAY ==
[2024-06-19 13:40] VITALS: BMI 30.6
--- NOTE | 2024-06-20 08:20 | HO.ANESPROP2 ---
Documented by User: Kristen Haley NP 06/20/24 08:20 HPI - Anesthesia Eval Consult details Narrative: 58yo F for Upper Endoscopy and Colonoscopy PMF Active Problems Active Problems: All Active Problems COVID-19 (Acute) Past Medical History Medical History (Updated 06/19/24 @ 13:38 by Tere Sanchez RN) IBS (irritable bowel syndrome) Asthma Palpitations Vertigo GERD (gastroesophageal reflux disease) Hiatal hernia Migraine Tachycardia Arthritis Surgical History Surgical History (Updated 06/19/24 @ 13:38 by Tere Sanchez RN) History of throat surgery History of surgery on lower extremity H/O colonoscopy History of esophagogastroduodenoscopy (EGD) Social History Social History Household Members Other:: lives alone Alcohol intake: never Patient Tobacco Use Status: Never used Tobacco Use of substances other than those prescribed or required for medical reasons: No Have you been hit, kicked, punched, or otherwise hurt by someone within the past year? If so, by whom?: No Are you DNR?: No Advance Directives: No Advance Directives Information Provided: Yes Advance Directives on File: No Recently lost weight without trying: No Nutrition Risks: No Nutritional Risk Meds Allergies Allergy/AdvReac Type Severity Reaction Status Date / Time No Known Allergies Allergy Verified 02/23/24 14:52 Home Medications ?Medication ?Instructions ?Recorded ?Confirmed ?Last Taken ?Type Flexeril 06/19/24 Unknown History dicyclomine 10 mg capsule 10 - 20 mg PO TID cramps 06/19/24 06/19/24 Unknown History loperamide 2 mg capsule (Imodium 2 mg PO Q6H PRN Diarrhea 06/19/24 06/19/24 Unknown History A-D) lorazepam 0.5 mg tablet 0.5 mg PO DAILY PRN Anxiety 06/19/24 06/19/24 Unknown History meclizine 25 mg tablet 25 mg PO BID PRN Vertigo 06/19/24 06/19/24 Unknown History metoprolol succinate 100 mg 100 mg PO DAILY 06/19/24 06/19/24 Unknown History tablet,extended release 24 hr pantoprazole 20 mg tablet,delayed 40 mg PO QAM 06/19/24 06/19/24 Unknown History release zolpidem 5 mg tablet 5 mg PO BEDTIME PRN Insomnia 06/19/24 06/19/24 Unknown History oxycodone 15 mg tablet 15 mg PO Q6-8H PRN pain 06/21/24 06/21/24 Unknown History oxycodone 15 mg tablet 15 mg PO Q6-8H PRN pain 06/21/24 06/21/24 06/21/24 08:30 History Exam Height,Weight and Vital Signs: Height 5 ft 3 in Weight 78.471 kg Assessment and Plan Assessment Anesthesia Assessment: Chart Reviewed Documented by User: Estelita Garcia MD 06/21/24 10:21 PMFSH Past Medical History Medical History (Updated 06/19/24 @ 13:38 by Tere Sanchez RN) IBS (irritable bowel syndrome) Asthma Palpitations Vertigo GERD (gastroesophageal reflux disease) Hiatal hernia Migraine Tachycardia Arthritis Family History Family history of problems with anesthesia: No Surgical History Surgical History (Updated 06/19/24 @ 13:38 by Tere Sanchez RN) History of throat surgery History of surgery on lower extremity H/O colonoscopy History of esophagogastroduodenoscopy (EGD) History of Problems with Anesthesia: No Social History Social History Household Members Other:: lives alone Alcohol intake: never Patient Tobacco Use Status: Never used Tobacco Use of substances other than those prescribed or required for medical reasons: No Have you been hit, kicked, punched, or otherwise hurt by someone within the past year? If so, by whom?: No Are you DNR?: No Advance Directives: No Advance Directives Information Provided: Yes Advance Directives on File: No Recently lost weight without trying: No Nutrition Risks: No Nutritional Risk Meds Allergies Allergy/AdvReac Type Severity Reaction Status Date / Time No Known Allergies Allergy Verified 02/23/24 14:52 Home Medications ?Medication ?Instructions ?Recorded ?Confirmed ?Last Taken ?Type Flexeril 06/19/24 Unknown History dicyclomine 10 mg capsule 10 - 20 mg PO TID cramps 06/19/24 06/19/24 Unknown History loperamide 2 mg capsule (Imodium 2 mg PO Q6H PRN Diarrhea 06/19/24 06/19/24 Unknown History A-D) lorazepam 0.5 mg tablet 0.5 mg PO DAILY PRN Anxiety 06/19/24 06/19/24 Unknown History meclizine 25 mg tablet 25 mg PO BID PRN Vertigo 06/19/24 06/19/24 Unknown History metoprolol succinate 100 mg 100 mg PO DAILY 06/19/24 06/19/24 Unknown History tablet,extended release 24 hr pantoprazole 20 mg tablet,delayed 40 mg PO QAM 06/19/24 06/19/24 Unknown History release zolpidem 5 mg tablet 5 mg PO BEDTIME PRN Insomnia 06/19/24 06/19/24 Unknown History oxycodone 15 mg tablet 15 mg PO Q6-8H PRN pain 06/21/24 06/21/24 Unknown History oxycodone 15 mg tablet 15 mg PO Q6-8H PRN pain 06/21/24 06/21/24 06/21/24 08:30 History Exam Airway Mallampati Class: II TM Dist: <=3cm Neck ROM: Limited Heart: rrr Lungs: cta Assessment and Plan Assessment Anesthesia Assessment: Anesthesia Plan Discussed Final Anesthetic Review Family History of Problems with Anesthesia: No History of Problems with Anesthesia: No NPO: Yes ASA Class: III Final Preanesthetic Review: No Changes in Pt Med Stat, Meds/Allgs Chart Reviewed, Consent Obtained/Reviewed and Anes Risks/Benef Reviewed Patient Risk: Intermediate Procedure Risk: Low Anesthetic Plan Anesthetic Plan: MAC: Disposition: Standard PACU
[2024-06-21 09:23] VITALS: BMI 29.2
[2024-06-21 09:49] VITALS: BP 131/79; PULSE 90; RESP 18; TEMP 37.1; O2SAT 96
[2024-06-21] MEDS: Lactated Ringers 1,000 ML 100 ML IVCONT (09:51)
[2024-06-21 11:52] VITALS: BP 106/71; PULSE 102; RESP 16; TEMP 36.1; O2SAT 96
--- NOTE | 2024-06-21 11:54 | PM.OP ---
Brief Operative Note Date of Service: 06/21/24 Pre-op diagnosis: GERD, Screening(limited prep) Post-op diagnosis: other (Hiatal hernia, Colon polyp but limited prep) Procedure: EGD with biopsies, Colonoscopy to the cecum with bx/removal of polyp Surgeon: Barrett Stewart MD Anesthesia: MAC Was an Welder Journeyman used for this Procedure?: No Estimated blood loss (mL): 2.0 Pathology: other (A. EG JUnction at 35cm B. Polyp in area of Hepatic Flexure) Condition: stable Disposition: PACU
[2024-06-21 12:07] VITALS: BP 123/76; PULSE 95; RESP 16; TEMP 36.1; O2SAT 98
--- NOTE | 2024-06-21 12:54 | OP_ITS ---
DATE OF SERVICE: 06/21/2024 SURGEON: Barrett Stewart MD INDICATIONS: The patient presents for evaluation of gastroesophageal reflux and colorectal cancer screening. Full consent has been obtained from her for this, including risks of bleeding and perforation. PREOPERATIVE DIAGNOSIS: POSTOPERATIVE DIAGNOSIS: Gastroesophageal reflux and colorectal cancer screening, hiatal hernia, small colon polyp, limited colon prep. PROCEDURE PERFORMED: Esophagogastroduodenoscopy with biopsies, and colonoscopy to the cecum with biopsy and removal of polyp. ESTIMATED BLOOD LOSS: COMPLICATIONS: ANESTHESIA: Monitored anesthesia care. ASSISTANTS: SPECIMENS: PREOPERATIVE DIAGNOSES: Gastroesophageal reflux and colorectal cancer screening. DESCRIPTION OF PROCEDURE: The patient was placed in the left lateral decubitus position. The Olympus video gastroscope was passed in the posterior oropharynx and upper esophagus under direct vision. The scope was passed slowly into the distal esophagus. The gastroesophageal junction appeared at 35 cm. There was some minimal irregularity consistent with reflux but no definitive evidence of Pizano esophagus and no esophagitis. The scope entered the stomach there was a small to moderate-sized hiatal hernia. The scope was advanced to the pylorus, and the duodenum was cannulated to the descending portion. The duodenum including the bulb appeared normal without mass or ulceration. The scope was withdrawn back in the stomach. The gastric antrum and body appeared normal with good peristalsis. The scope was retroflexed visualizing the proximal stomach carefully, which appeared normal, without any sign of mass or ulceration. The scope was straightened and withdrawn back in the esophagus. Biopsies were obtained at the EG junction at 35 cm. Proximal to that, the esophageal mucosa appeared normal. Scope was withdrawn from the patient. She was turned around for the colonoscopy. The digital rectal exam revealed no abnormalities. The Olympus video pediatric colonoscope was entered into the rectum and advanced to the cecum. Advancement was somewhat difficult due to a limited prep in the left colon. Once in the cecum, I did identify normal-appearing cecal pouch with appendiceal orifice and a normal-appearing ileocecal valve. The preparation was very good in this area. The scope was slowly withdrawn assessing all mucosal surfaces carefully. Preparation was good in the ascending and transverse colon but limited in the descending and sigmoid colon. In the area of the hepatic flexure was a flat, approximately 3 or 4 mm polyp, which was biopsied and removed with the cold biopsy forceps. I did not visualize any other polyps, colitis, or angiodysplasia. There was a mild amount of sigmoid diverticulosis. In the rectum, scope was retroflexed visualizing internal hemorrhoids, but no other pathology. The rectal mucosa appeared normal. The scope was straightened and withdrawn from the patient. She tolerated both procedures well and was returned to the recovery area in stable condition. IMPRESSION: 1. Hiatal hernia, gastroesophageal reflux. 2. Colon polyp. 3. Diverticulosis. 4. Internal hemorrhoids. 5. Limited colon prep. PLAN: The results of the biopsies will be checked. She was advised to continue her current regimen of pantoprazole. I do not think she would need any further upper endoscopies at this time. Given the limited prep and the finding of the polyp, I would recommend a repeat colonoscopy within the year with a 2-day prep for a better clean out. She will be seen at that time for followup as well. MD ARSEN Starr/DAISY / [phone]
== END 2024-06-21 12:43 | disposition home or self-care (01) ==
PROVIDERS: PCP Nurse Practitioner; Visit Provider Internal Medicine
PROC: (CPT 45380; principal; 2024-06-21 10:30)
DX: Z12.11 Encounter for screening for malignant neoplasm of colon (principal); Z86.0101 Personal history of adenomatous and serrated colon polyps; D12.3 Benign neoplasm of transverse colon; K57.30 Diverticulosis of large intestine without perforation or abscess without bleeding; K64.8 Other hemorrhoids; K58.0 Irritable bowel syndrome with diarrhea; K21.9 Gastro-esophageal reflux disease without esophagitis; K44.9 Diaphragmatic hernia without obstruction or gangrene; J45.909 Unspecified asthma, uncomplicated; R00.2 Palpitations; Z79.899 Other long term (current) drug therapy
CPT/HCPCS: 45380; 43239; 88305; 88313; J1596; J2003; J2704; J2710

== ENCOUNTER 2024-11-04 21:57 | Emergency (ER) | payer MEDICARE, MEDICAID, SELFPAY ==
[2024-11-04 22:31] VITALS: BP 114/74; PULSE 85; RESP 16; TEMP 36.8; BMI 30.5
[2024-11-04 22:46] LABS: MANUAL DIFF FLAG NO
[2024-11-04 22:47] LABS: Basophils Percent Auto 0.2 % (0-2); Eosinophils Absolute Auto 0.1 X10*3/uL (0.0-0.4); Hemoglobin 12.6 g/dl (12.0-16.0); Imm Gran Abs Auto 0.03 X10*3/uL (0.00-0.03); Imm Gran Pct Auto 0.4 % (0.0-0.4); Lymphocytes Absolute Auto 2.2 X10*3/uL (1.2-4.9); Lymphocytes Percent Auto 25.7 % (20-40); Mean Corpuscular HGB Conc 34.1 g/dl (31.0-35.0); Mean Corpuscular Hemoglobin 30.3 pg (27.0-33.0); Mean Corpuscular Volume 88.9 fL (80.0-98.0); Mean Platelet Volume 8.9 fL (9.4-12.3); Monocytes Absolute Auto 0.7 X10*3/uL (0.1-1.2); Monocytes Percent Auto 8.3 % (2-11); Neutrophils Absolute Auto 5.4 x10*3/uL (2.0-8.3); Neutrophils Percent Auto 64.4 % (45-73); Platelet Count 331 X10*3/uL (160-400); Red Blood Count 4.16 X10*6/uL (4.20-5.50); Red Cell Distribution Width 12.6 % (11.0-16.0); White Blood Count 8.4 X10*3/uL (4.8-10.8)
[2024-11-04 23:01] LABS: Alanine Aminotransferase 41 U/L (0-31); Albumin Level 3.9 g/dL (3.5-5.0); Alkaline Phosphatase 105 U/L (39-117); Anion Gap 10 (12-20); Aspartate Amino Transferase 28 U/L (5-31); Bilirubin Total 0.2 mg/dL (0.0-1.0); Blood Urea Nitrogen 15 mg/dL (9-16); Calcium 8.7 mg/dL (8.4-10.2); Carbon Dioxide 28 mmol/L (22-29); Chloride 108 mmol/L (96-108); Creatinine Clr Calc Pharmacy 84.5; Estimated Glomerular Filt Rate > 60; Glucose Random 95 mg/dL (60-115); Potassium 3.9 mmol/L (3.3-5.1); Sodium 142 mmol/L (135-145); Total Protein 7.1 g/dL (6.5-8.0)
[2024-11-04 23:28] LABS: Influenza A PCR NEGATIVE (Negative); Influenza B PCR NEGATIVE (Negative); Resp Syncy Virus RNA Qual PCR NEGATIVE (Negative); SARS COV2 PCR INHOUSE NEGATIVE (Negative)
[2024-11-05 03:11] VITALS: BP 126/69; PULSE 70; RESP 18; TEMP 36.8; O2SAT 98
[2024-11-05 04:49] VITALS: BP 111/63; PULSE 73; RESP 16; TEMP 36.6; O2SAT 97
--- NOTE | 2024-11-05 05:15 | ED.NAVMDI ---
HPI - Nausea/Vomiting/Diarrhea General Chief complaint: Nausea/Vomiting/Diarrhea Stated complaint: diarrhea, chills, headache, dizzy Time Seen by Provider: 11/05/24 05:00 Source: patient Mode of arrival: ambulatory Limitations: no limitations History of Present Illness ED Provider: HPI Narrative: patient was healthy comes here for body aches weakness dizziness diarrhea poor oral intake for last 3 days no other family member sick no significant abdominal pain had 2-3 times bowel movement loose no antibiotic intake also complaining of nausea no vomiting Related Data Home Medications ?Medication ?Instructions ?Recorded ?Confirmed Flexeril 06/19/24 dicyclomine 10 mg capsule 10 - 20 mg PO TID cramps 06/19/24 06/19/24 loperamide 2 mg capsule (Imodium 2 mg PO Q6H PRN Diarrhea 06/19/24 06/19/24 A-D) lorazepam 0.5 mg tablet 0.5 mg PO DAILY PRN Anxiety 06/19/24 06/19/24 meclizine 25 mg tablet 25 mg PO BID PRN Vertigo 06/19/24 06/19/24 metoprolol succinate 100 mg 100 mg PO DAILY 06/19/24 06/19/24 tablet,extended release 24 hr pantoprazole 20 mg tablet,delayed 40 mg PO QAM 06/19/24 06/19/24 release zolpidem 5 mg tablet 5 mg PO BEDTIME PRN Insomnia 06/19/24 06/19/24 oxycodone 15 mg tablet 15 mg PO Q6-8H PRN pain 06/21/24 06/21/24 oxycodone 15 mg tablet 15 mg PO Q6-8H PRN pain 06/21/24 06/21/24 Allergies Allergy/AdvReac Type Severity Reaction Status Date / Time No Known Allergies Allergy Verified 11/04/24 22:32 Review of Systems Review of Systems: Yes all other systems are reviewed and are negative PMFSH Past Medical History Medical History IBS (irritable bowel syndrome) Asthma Palpitations Vertigo GERD (gastroesophageal reflux disease) Hiatal hernia Migraine Tachycardia Arthritis Surgical History History of throat surgery History of surgery on lower extremity H/O colonoscopy History of esophagogastroduodenoscopy (EGD) Social History Social History Household Members Other:: lives alone Alcohol intake: never Patient Tobacco Use Status: Never used Tobacco Advance Directives: No Advance Directives Information Provided: Yes Do you have a plan to hurt others: No Plan Physical Exam Vital Signs: Vital Signs: Last Vital Signs Temp 97.9 F 11/05/24 06:46 Pulse 73 11/05/24 06:46 Resp 16 11/05/24 06:46 BP 111/63 11/05/24 06:46 Pulse Ox 97 11/05/24 06:46 O2 Del Method Room Air 11/05/24 06:46 BMI result Body Mass Index 30.5 Appearance: Alert. Oriented X3. No acute distress. Eyes: no pallor or icterus ENT: Pharynx normal. Oral Mucosa moist Neck: Normal inspection. Neck supple. CVS: Normal heart rate and rhythm. Pulses normal. Respiratory: No respiratory distress. Equal air entry bilateral, no wheezing/rales/rhonchi Abdomen: Soft and nontender. Bowel sounds are present, no mass palpable, no CVA tenderness Skin: Skin warm and dry. Normal skin color. Normal skin turgor. Extremities: No lower extremity edema. No calf tenderness Neuro: Oriented X 3. No motor deficit. No sensory deficit.No cerebellar signs , cranial nerves II-XII intact Medications Administered Discontinued Medications Generic Name Dose Route Start Last Admin Trade Name Freq PRN Reason Stop Dose Admin Sodium Chloride 1,000 mls @ 999 mls/hr 11/05/24 05:30 11/05/24 06:39 Ns IV 11/05/24 06:30 Infused .Q1H1M ONE Infusion Ondansetron HCl 4 mg 11/05/24 06:05 11/05/24 06:09 Ondansetron Hcl 4 Mg/2 Ml Vial IVPUSH 11/05/24 06:06 4 mg ONCE ONE Administration Medical Decision Making Medical Decision Making [facility] Narrative: patient with viral gastroenteritis improved after IV fluids and Zofran taking p.o. fluids discharge patient home labs were stable Lab Data [facility] Lab Attestation statement: I reviewed the patient's lab results. 11/04/24 22:41 11/04/24 22:41 Labs: Lab Results 11/04/24 Range/Units 22:41 WBC 8.4 (4.8-10.8) X10*3/uL RBC 4.16 L (4.20-5.50) X10*6/uL Hgb 12.6 (12.0-16.0) g/dl Hct 37.0 (37.0-47.0) % MCV 88.9 (80.0-98.0) fL MCH 30.3 (27.0-33.0) pg MCHC 34.1 (31.0-35.0) g/dl RDW 12.6 (11.0-16.0) % Plt Count 331 (160-400) X10*3/uL MPV 8.9 L (9.4-12.3) fL Immature Gran % (Auto) 0.4 (0.0-0.4) % Neut % (Auto) 64.4 (45-73) % Lymph % (Auto) 25.7 (20-40) % [place] % (Auto) 8.3 (2-11) % Eos % (Auto) 1.0 (0-4) % Baso % (Auto) 0.2 (0-2) % Lymph # (Auto) 2.2 (1.2-4.9) X10*3/uL [place] # (Auto) 0.7 (0.1-1.2) X10*3/uL Eos # (Auto) 0.1 (0.0-0.4) X10*3/uL Baso # (Auto) 0.0 (0.0-0.2) X10*3/uL Abs Immat Gran (auto) 0.03 (0.00-0.03) X10*3/uL Absolute Neuts (auto) 5.4 (2.0-8.3) x10*3/uL Absolute Nucleated RBC 0.000 (0.0-0.012) X10*3/uL Nucleated RBC % (auto) 0.0 (0.0-0.2) /100WBC Sodium 142 (135-145) mmol/L Potassium 3.9 (3.3-5.1) mmol/L Chloride 108 (96-108) mmol/L Carbon Dioxide 28 (22-29) mmol/L Anion Gap 10 L (12-20) BUN 15 (9-16) mg/dL Creatinine 0.70 (0.5-1.4) mg/dL Estim Creat Clear Calc 84.5 Estimated GFR > 60 Random Glucose 95 (60-115) mg/dL Calcium 8.7 (8.4-10.2) mg/dL Total Bilirubin 0.2 (0.0-1.0) mg/dL AST 28 (5-31) U/L ALT 41 H (0-31) U/L Alkaline Phosphatase 105 (39-117) U/L Total Protein 7.1 (6.5-8.0) g/dL Albumin 3.9 (3.5-5.0) g/dL Influenza Type A (PCR) NEGATIVE (Negative) Influenza Type B (PCR) NEGATIVE (Negative) RSV RNA Qual (PCR) NEGATIVE (Negative) SARS-CoV-2 RNA (RT-PCR) NEGATIVE (Negative) Discharge Plan Discharge Clinical Impression: Gastroenteritis Patient Disposition: Home, Self-Care Instructions: Gastroenteritis (ED) Additional Instructions: Drink plenty of fluids Imodium 1 tablet every 6 hours as needed for diarrhea Follow with your PCP if not better Prescriptions: No Action loperamide [Imodium A-D] 2 mg Capsule 2 mg PO Q6H PRN (Reason: Diarrhea) metoprolol succinate 100 mg Tablet Extended Release 24 Hr 100 mg PO DAILY pantoprazole 20 mg tablet,delayed release (DR/EC) 40 mg PO QAM lorazepam 0.5 mg tablet 0.5 mg PO DAILY PRN (Reason: Anxiety) meclizine 25 mg tablet 25 mg PO BID PRN (Reason: Vertigo) zolpidem 5 mg tablet 5 mg PO BEDTIME PRN (Reason: Insomnia) dicyclomine 10 mg capsule 10 - 20 mg PO TID Flexeril oxycodone 15 mg tablet 15 mg PO Q6-8H PRN (Reason: pain) oxycodone 15 mg tablet 15 mg PO Q6-8H PRN (Reason: pain) Interventions: ED Discharge Assessment Last Done: 11/05/24 06:46 Discharge Date/Time: 11/05/24 06:48 Print Language: Filipino
[2024-11-05] MEDS: 0.9 % Sodium Chloride 1,000 ML 999 ML IV (05:59)
[2024-11-05] MEDS: ondansetron HCL 4 MG/2 ML VIAL IVPUSH (06:09)
[2024-11-05 06:46] VITALS: BP 111/63; PULSE 73; RESP 16; TEMP 36.6; O2SAT 97
== END 2024-11-05 06:48 | disposition home or self-care (01) ==
PROVIDERS: Emergency Provider Internal Medicine; PCP Nurse Practitioner
DX: K52.9 Noninfective gastroenteritis and colitis, unspecified (principal); M79.10 Myalgia, unspecified site; R11.0 Nausea; R51.9 Headache, unspecified; R42 Dizziness and giddiness; Z03.818 Encounter for observation for suspected exposure to other biological agents ruled out
CPT/HCPCS: 0241U; 36415; 80053; 85025; 96361; 96374; 99284; J2405

== ENCOUNTER 2025-05-09 06:23 | Day surgery (SDC) | payer MEDICARE, MEDICAID, SELFPAY ==
--- OUTSIDE RECORDS SUMMARY | 2024-06-21 06:30 | XMS_ITS ---
Author Organization [facility] Address [address] [place] [id number] Care Team Providers Care Salon Receptionist Name Role Phone Jaida Valle N.P. Primary Care Provider Barrett Flowers Unavailable [phone] REASON FOR VISIT screening,hx polyps, Irregular bowel habits, gerd Problems Problem Type SNOMED Code ICD Code Onset Dates Problem Status W/U Status Risk Notes Problem Diverticular disease of colon (078521218) Diverticulosis of large intestine without perforation or abscess without bleeding (K57.30) Active confirmed Problem Gastroesophageal reflux disease (872017051) Gastroesophageal reflux disease (K21.9) Active confirmed Encounters Encounter Location Date Provider Diagnosis [facility] [place] [address] [place] [phone] 06/21/2024 Barrett Stewart Colon cancer screeni ng Z12.11 ; Colon polyps K63.5 ; Diverticulosis of large intestine without perforation or abscess without bleeding K57.30 ; Other hemorrhoids K64.8 ; Gastroesophageal reflux disease K21.9 and Hiatal hernia K44.9 Assessments Encounter Date Diagnosis (ICD Code) Assessment Notes Treatment Notes Treatment Clinical Notes Section Notes 06/21/2024 Colon cancer screening (ICD-10 - Z12.11) 06/21/2024 Colon polyps (ICD-10 - K63.5) 06/21/2024 Diverticulosis of large intestine without perforation or abscess without bleeding (ICD-10 - K57.30) 06/21/2024 Other hemorrhoids (ICD-10 - K64.8) 06/21/2024 Gastroesophageal reflux disease (ICD-10 - K21.9) 06/21/2024 Hiatal hernia (ICD-10 - K44.9) Plan Of Treatment Next Appt Details Provider Name:Barrett Stewart , 05/09/2025 07:30:00 AM, [address] [place] [address] , [place], [place], [phone], Progress Notes * PUSHPA PETERSONOB: (59 yo F)Acc No.[id number]:06/21/2024 EGD and COL/MAC Patient: RONALD GHOTRA Provider: Jaylon Stewart MD :1965 A ge:58 Y S ex:Female Date:06/21/2024 Address:[address] [place], [place] [id number] Pcp:Jaida Valle N.P. Subjective: * Chief Complaints: * 1 . screening,hx polyps, Irregular bowel habits, gerd. * Medical History: Objective: * Vitals: Assessment: * Assessment: 1. C olon cancer screening - Z12.11 (Primary) 2 . C olon polyps - K63.5? 3. D iverticulosis of large intestine without perforation or abscess without bleeding - K57.30 4 . O ther hemorrhoids - K64.8 5 . G astroesophageal reflux disease - K21.9 6 . H iatal hernia - K44.9 Plan: * Treatment: * Procedure Codes: 4 5380 COLONOSCOPY AND BIOPSY, Modifiers: 53 , 0529F INTRVL 3+YRS PTS CLNSCP DOCD, 0528F RCMND FLW-UP 10 YRS DOCD, Modifiers: 1P , 49162 UPPER GI ENDOSCOPY, BIOPSY * * The named appointment provid er may or may not be the originator of this progress note, and it is not deemed complete until electronically signed by the appointment provider. Sign off status: Pending * Provider: Jaylon Stewart MD Date: Generated for Alli jeffers/Rabia/eTsoniasmitting on: 0 05/08/2025 05:38 PM EDT
--- OUTSIDE RECORDS SUMMARY | 2024-10-11 11:00 | XMS_ITS ---
Author Organization [facility] Address [address] [place] [phone] Care Team Providers Care Welfare Centre Manager Name Role Phone Jaida Valle N.P. Primary Care Provider Barrett Flowers [phone] REASON FOR VISIT dx gerd, colon polyp Encounters Encounter Location Date Provider Diagnosis [facility] [address] [facility] [address] [place] [phone] 10/11/2024 Barrett Stewart Plan Of Treatment Next Appt Details Provider Name:Barrett Stewart , 05/09/2025 07:30:00 AM, [address] [place] [address] , [place], [place], [phone], Progress Notes * HOLGER PETERSONANAHYOB: (59 yo F)Acc No.[id number]:10/11/2024 Progress Notes Patient: RONALD GHOTRA Provider: Jaylon Stewart MD :1965 A ge:59 Y S ex:Female Date:10/11/2024 Address:[address] [place], [place] [phone] Pcp:Jaida Valle N.P. Subjective: * Chief Complaints: * 1 . Dx gerd, colon polyp. * Medical History: Objective: * Vitals: Assessment: Plan: * Treatment: * * The named appointment provid er may or may not be the originator of this progress note, and it is not deemed complete until electronically signed by the appointment provider. Sign off status: Pending * Provider: Jaylon Stewart MD Date: 0 10/11/2024 Generated for Alli jeffers/Rabia/Renard on: 0 05/08/2025 05:38 PM EDT
[2025-05-07 14:06] VITALS: BMI 31.0
--- OUTSIDE RECORDS SUMMARY | 2025-05-08 17:38 | XMS_ITS | Patient Health Record ---
Author Organization [facility] Address [address] [place] [address] Care Team Providers Care Advanced Registered Nurse Name Role Phone Jaida Valle N.P. Primary Care Provider Barrett Flowers Unavailable [phone] Allergies No Known Allergies Results Component Value Reference Range Notes Pathology Reviewed date:08/27/2024 12:11:27 AM Interpretation: Performing Lab:[address] [id number] Notes/Report: Pathology Reviewed date:08/27/2024 12:12:45 AM Interpretation: Performing Lab:[address] [address] Notes/Report: Reason For Referral No Information Medications Medication SIG (Take, Route, Frequency, Duration) Notes Start Date End Date Status Loperamide HCl 2 MG 1 or 2 Orally Every 6 hours if needed for diarrhea for 30 days Active Pantoprazole Sodium 40 MG TOME KATINA TABLE TA TODOS LOS MOBLEY Oral Active MiraLax (colon prep) 17 GM/SCOOP 1 238Gm bottle mixed with Gatorade or Crystal Light Orally begin at 5:00 p.m. the day before the procedure for 1 day Active Dulcolax (colon prep) 5 MG take at 3:00 p.m and 7:00p.m. Orally two tablets twice a day for one day for 1 day Active Metoprolol Succinate ER 100 MG 1 tablet Orally Once a day Active LORazepam 0.5 MG 1 tablet as needed O rally Once a day Active Meclizine HCl 25 MG 1 tablet as needed O rally Once a day Active Ambien 10 MG 1 tablet at bedtime as needed Orally Once a day Active Dulcolax (colon prep) 5 MG Take 2 tablet s 2 days before the colonoscopy and then take 2 at 3:00 p.m and 2 at 7:00p.m. the day before the colonoscopy Orally Two tablets 2 days before the colonoscopy, and then wo tablets twice a day for one day beofre the colonoscopy for 2 days 05/08/2025 Active Imodium A-D 2 MG 1-2 tablets as neede d for diarrhea Orally Every 4-6 hours as needed for diarrhea for 30 days 04/30/2022 Active Dicyclomine HCl 10 MG 1-2 capsules Orall y Q 6 hours prn abdominal cramps and diarrhea for 30 day(s) 04/30/2022 Active MiraLax (colon prep) 17 GM/SCOOP 1/2 of a 238Gm bottle mixed with Gatorade 2 days before the colonoscopy, and then 1 full 238Gm bottle mixed with Gatorade or Crystal Light the day before the colonoscopy orally Do two days before the colonoscopy and then 1 day before the colonoscopy for 2 days 05/08/2025 Active Flexeril Active Immunizations Vaccine Route Administration Date Status Comme nts Influenza Unknown 05/01/2020 Administered Influenza Unknown 02/25/2024 Refused Problems Problem Type SNOMED Code ICD Code Onset Dates Problem Status W/U Status Risk Notes Problem Rectal bleeding (47119422) Rectal bleeding (K62.5) Active confirmed Problem Screening for malignant neoplasm of colon (198288091) Encounter for screening for malignant neoplasm of colon (Z12.11) Active confirmed Problem History of adenomatous polyp of colon (192646367) History of adenomatous polyp of colon (Z86.010) Active confirmed Problem 614116196 Abdominal bloati ng (R14.0) Active confirmed Problem Diverticular disease of colon (961893965) Diverticulosis of large intestine without perforation or abscess without bleeding (K57.30) Active confirmed Problem 176459336 Irritable bowel syndrome with diarrhea (K58.0) Active confirmed Problem Gastroesophageal reflux disease (731147529) Gastroesophageal reflux disease (K21.9) Active confirmed Problem 330484578 Right upper quadrant abdominal pain (R10.11) Active confirmed Problem 361824410 Irregular bowel habits (R19.8) Active confirmed Problem Right upper quadrant pain (838363609) RUQ abdominal pain (R10.11) Active confirmed Problem Gastroesophageal reflux disease (disorder) (315931976) Chronic GERD (K21.9) Active confirmed Vital Signs Temperature 98.9 degrees Fahrenheit 02/07/2025 Blood pressure diastolic 01 mm Hg 02/07/2025 Height 63 in 02/07/2025 Blood pressure systolic 001 mm Hg 02/07/2025 Weight 175.6 lbs 02/07/2025 BMI 31.1 kg/m2 02/07/2025 Procedures Procedure Date Ordered Date Performed Result Body Sit e COLONOSCOPY 02/07/2025 N/A Encounters Encounter Location Date Provider Diagnosis [facility] Outpatient [address] [place], [place] [id number] 06/21/2024 Barrett Stewart Colon cancer screeni ng Z12.11 ; Colon polyps K63.5 ; Diverticulosis of large intestine without perforation or abscess without bleeding K57.30 ; Other hemorrhoids K64.8 ; Gastroesophageal reflux disease K21.9 and Hiatal hernia K44.9 [facility] [address] [place] [phone] 02/07/2025 Barrett Stewart Chronic GERD K21.9 ; Rectal bleeding K62.5 ; History of adenomatous polyp of colon Z86.010 and Encounter for screening for malignant neoplasm of colon Z12.11 [facility] [address] [place] [phone] 02/07/2025 Barrett Stewart [facility] [address] [place] [phone] 06/04/2024 Barrett Stewart [facility] [address] [place] [phone] 06/25/2024 Barrett Stewart [facility] [address] [place] [phone] 06/26/2024 Barrett Stewart [facility] [address] [place] [phone] 09/12/2024 Barrett Stewart [facility] [address] [place] [phone] 05/02/2025 Barrett Stewart [facility] [address] [place] [phone] 05/07/2025 Barrett Stewart Assessments Encounter Date Diagnosis (ICD Code) Assessment Notes Treatment Notes Treatment Clinical Notes Section Notes 06/21/2024 Colon cancer screening (ICD-10 - Z12.11) 06/21/2024 Colon polyps (ICD-10 - K63.5) 02/07/2025 Rectal bleeding (ICD-10 - K62.5) Overall, Jannet appears well. We did review the findings on her procedures from last May in detail. I did advise her to continue her daily Protonix for symptomatic relief of reflux. Based on the findings I advised her that I do not think she would need any further upper endoscopies. We did discuss the hiatal hernia but I advised her that as long as her symptoms are stable on the PPI I would hold off on any type of surgical referral at this time.. I did recommend a repeat colonoscopy later this year with a 2-day prep to fully assess the left colon given the finding of the tubular adenoma in the more proximal bowel, her recent hematochezia, and her previous history of tubular adenomas as well. We did review the rationale for this in regard to colorectal cancer prevention and/or early detection. Full consent has been obtained from her for this, including risks of bleeding and perforation. The procedure will be done with monitored anesthesia care. Jannet and Rahul were comfortable with this plan. Thank you again for allowing me to participate in Jannet's care. I shall continue to keep you advised of her progress. 02/07/2025 Chronic GERD (ICD-10 - K21.9) Continue the daily Protonix for the reflux/heart burn Overall, Jannet appears well. We did review the findings on her procedures from last May in detail. I did advise her to continue her daily Protonix for symptomatic relief of reflux. Based on the findings I advised her that I do not think she would need any further upper endoscopies. We did discuss the hiatal hernia but I advised her that as long as her symptoms are stable on the PPI I would hold off on any type of surgical referral at this time.. I did recommend a repeat colonoscopy later this year with a 2-day prep to fully assess the left colon given the finding of the tubular adenoma in the more proximal bowel, her recent hematochezia, and her previous history of tubular adenomas as well. We did review the rationale for this in regard to colorectal cancer prevention and/or early detection. Full consent has been obtained from her for this, including risks of bleeding and perforation. The procedure will be done with monitored anesthesia care. Jannet and Rahul were comfortable with this plan. Thank you again for allowing me to participate in Jannet's care. I shall continue to keep you advised of her progress. 06/21/2024 Diverticulosis of large intestine without perforation or abscess without bleeding (ICD-10 - K57.30) 02/07/2025 History of adenomatous polyp of colon (ICD-10 - Z86.010) Overall, Jannet appears well. We did review the findings on her procedures from last May in detail. I did advise her to continue her daily Protonix for symptomatic relief of reflux. Based on the findings I advised her that I do not think she would need any further upper endoscopies. We did discuss the hiatal hernia but I advised her that as long as her symptoms are stable on the PPI I would hold off on any type of surgical referral at this time.. I did recommend a repeat colonoscopy later this year with a 2-day prep to fully assess the left colon given the finding of the tubular adenoma in the more proximal bowel, her recent hematochezia, and her previous history of tubular adenomas as well. We did review the rationale for this in regard to colorectal cancer prevention and/or early detection. Full consent has been obtained from her for this, including risks of bleeding and perforation. The procedure will be done with monitored anesthesia care. Jannet and Rahul were comfortable with this plan. Thank you again for allowing me to participate in Jannet's care. I shall continue to keep you advised of her progress. 06/21/2024 Other hemorrhoids (ICD-10 - K64.8) 02/07/2025 Encounter for screening for malignant neoplasm of colon (ICD-10 - Z12.11) Overall, Jannet appears well. We did review the findings on her procedures from last May in detail. I did advise her to continue her daily Protonix for symptomatic relief of reflux. Based on the findings I advised her that I do not think she would need any further upper endoscopies. We did discuss the hiatal hernia but I advised her that as long as her symptoms are stable on the PPI I would hold off on any type of surgical referral at this time.. I did recommend a repeat colonoscopy later this year with a 2-day prep to fully assess the left colon given the finding of the tubular adenoma in the more proximal bowel, her recent hematochezia, and her previous history of tubular adenomas as well. We did review the rationale for this in regard to colorectal cancer prevention and/or early detection. Full consent has been obtained from her for this, including risks of bleeding and perforation. The procedure will be done with monitored anesthesia care. aJnnet and Rahul were comfortable with this plan. Thank you again for allowing me to participate in Jannet's care. I shall continue to keep you advised of her progress. 06/21/2024 Gastroesophageal reflux disease (ICD-10 - K21.9) 06/21/2024 Hiatal hernia (ICD-10 - K44.9) Plan Of Treatment Pending Test Test Name Order Date COLONOSCOPY 02/07/2025 LIVER PROFILE 12/17/2015 AMYLASE 12/17/2015 LIPASE 12/17/2015 CBC w DIFF 12/17/2015 CELIAC PANEL #10 12/17/2015 NUC HIDA SCAN 01/21/2016 US ABD 04/30/2022 Future Test Test Name Order Date UPPER GI ENDOSCOPY 05/16/2015 COLONOSCOPY 05/16/2015 UPPER GI ENDOSCOPY 02/25/2024 COLONOSCOPY 02/25/2024 Next Appt Details Provider Name:Barrett Stewart , 05/09/2025 07:30:00 AM, [address] [place] [address] , [place], [place], [phone], Insurance Providers Payer Name Payer Address Payer Phone Subscriber Number Group Number Insured Name Patient Relationship to Insured Coverage Start Date Coverage End Date MEDICARE OF [place] [address] [place] [address] [phone] [id number] JANNET PETERSON Self - patient is the insured MEDICAID OF [facility] [address] [place] [address] [id number] JANNET PETERSON Self - patient is the insured Medical (General) History Medical History History ICD Code Upper endoscopy, 2010--neg. except for a small hiatal hernia--no esophagitis, no Pizano's Gastroesophageal reflux dise ase--she does have a long-standing history of some coughing and clearing of her throat, as well as some left-sided neck pain--she had an extensive evaluation by Dr. Sanchez, an ENT physician--she underwent evaluation with a laryngoscopy and a modified barium swallow that was nonrevealing Vertigo Palpitations Denies AR,DM,CVA,renal disease Mild asthma-inhaler prn Colonoscopy 2014 with 2 small tubular ad enomas removed EGD in 2014-small hiatal her matilde, no esophagitis nor Pizano's esophagus, proximal esophageal biopsies were negative for eosinophilic esophagitis Colonoscopy at [facility] in 11/2018 was negat rula-done by Dr. Martinez IBS with diarrhea and left-sided abdomin al pain She has had a negative abdom inal ultrasound in 2015 and a negative HIDA scan with [facility] in 2015 Upper endoscopy in May 31 revealed a moderate size hiatal hernia but no esophagitis or Pizano's esophagus Colonoscopy in May 2024 revealed a small tubular adenoma but the left colon was poorly prepped and was not well-visualized Surgical History Surgery Date(Month/Year) Throat surgery at age 7-no details merary ilable Left leg surgery for a fracture
--- OUTSIDE RECORDS SUMMARY | 2025-05-08 17:38 | XMS_ITS | Encounter Summary ---
Author Organization [facility] Address [address] [facility] [address] [facility] [address] [place] [address] Care Team Providers Care Event Management Consultant Name Role Phone Unavailable Primary Care Provider Unavailabl e Encounter Details Date Type Department Care Team (Latest Contact Info) Description 11/07/2021 Abstract [facility] CONVERSIONS Dental, Provider, DDS Social History Tobacco Use Types Packs/Day Years Used Date Smoking Tobacco: Never Assessed Comments Unknown Sex and Gender Information Value Date Recorded Sex Assigned at Female 06/29/2022 10:14 AM EDT Legal Sex Female 10:14 AM EDT Gender Identity Female 06/29/2022 10:14 AM EDT Sexual Orientation Straight 06/29/2022 10 :14 AM EDT documented as of this encounter Plan of Treatment Upcoming Encounters Date Type Department Care Team (Late st Contact Info) Description 07/06/2025 2:15 PM EST Office Visit [facility] ADULT DENTAL [address] [place] [address] Alex Sadler documented as of this encounter Visit Diagnoses Not on filedocumented in this encounter
--- OUTSIDE RECORDS SUMMARY | 2025-05-08 17:38 | XMS_ITS | Clinical Summary ---
Author Organization [employer] Address [address] [place] [address] [address] [place] [address] Care Team Providers Care Seed Sorter Name Role Phone Unavailable Primary Care Provider Unavailabl e Allergies No known active allergies Medications Ventolin HFA 108 (90 Base) MCG/ACT inhaler INHALE DANDO DOS SOPLIDOS POR VIA ORAL CADA CUATRO HORAS CUANDO SEA NECESARIO 3 Active amitriptyline (Elavil) 25 MG tablet 2 TABLET AT BEDTIME ORALLY ONCE A DAY 30 DAYS 90 3 Active B Complex Vitamins (vitamin B complex) tablet TOME KATINA TABLETA TODOS LOS D SEG N LO INDICADO 3 Active Diclofenac Sodium 1 % gel APLIQUE 1GM AL BENTLEY AFECTADA LARRY O CUATRO VECES AL D A CUANDO SEA NECESARIO 3 Active ergocalciferol (Vitamin D2) 1.25 MG (31445 UT) capsule Take 1 capsule by mouth 1 (one) time per week. 3 Active FLUoxetine (PROzac) 40 MG capsule TOME KATINA C PSULA TODOS LOS MOBLEY POR 90 DAYS 3 Active Flovent Diskus 100 MCG/ACT aerosol powder INAHLE 1 PUFF BY MOUTH 2 TIMES A DAY 3 Active ibuprofen 600 MG tablet TOME KATINA TABLETA POR V A ORAL DOS VECES AL D A CUANDO SEA NECESARIO CON ALIMENTO 3 Active lactulose (Chronulac) 10 GM/15ML solution TAKE 15 ML BY MOUTH ONCE DAILY 3 Active [facility] Anti-Diarrheal 2 MG tablet TAKE 1-2 TABLETS NEEDED FOR DIARRHEA ORALLY EVERY 4-6 HOURS NEEDED FOR DIARRHEA 30 DAYS 3 Active loratadine (Claritin) 10 MG tablet TOME KATINA TABLETA TODOS LOS MOBLEY POR 90 MOBLEY 3 Active LORazepam (Ativan) 0.5 MG tablet TOME KATINA TABLETA DOS VECES AL D A CUANDO SEA NECESARIO PARA LA ANSIEDAD 3 Active magnesium oxide (Mag-Ox) 400 MG tablet TOME KATINA TABLETA TODOS LOS D SEG N LO INDICADO 3 Active meclizine (Antivert) 25 MG tablet TOME KATINA TABLETA POR VIA ORAL DOS VECES AL D A CUANDO SEA NECESARIO 3 Active metoprolol succinate XL (Toprol-XL) 50 MG 24 hr tablet TOME KATINA TABLETA TODOS LOS D FOR 90 DAYS 3 Active naloxone (Narcan) 4 mg/0.1 mL nasal spray USE DIRECTED CUANDO SEA NECESARIO OVERDOSE 3 Active ondansetron (Zofran) 4 MG tablet TOME KATINA TABLETA LARRY VECES AL STEPHANIE CUANDO SEA NECESARIO 3 Active oxyCODONE (Roxicodone) 15 MG immediate release tablet 3 Active tretinoin (Retin-A) 0.025 % cream APPLY AT BEDTIME 3 TIMES WEEKLY, THEN INCREASE TO NIGHTLY IF TOLERATED 3 Active zolpidem (Ambien) 5 MG tablet TOME KATINA TABLETA TODOS LOS D AL ACOSTARSE CUANDO SEA NECESARIO 3 Active Social History Tobacco Use Types Packs/Day Years Used Date Smoking Tobacco: Never Passive Smoke Exposure: Never Smokeless Tobacco: Never Tobacco Cessation:Counseling Given: Not Answered Alcohol Use Standard Drinks/Week Comments Never 0 (1 standard drink = 0.6 oz pur e alcohol) Comments Unknown Sex and Gender Information Value Date Recorded Sex Assigned at Female 06/29/2022 10:14 AM EDT Legal Sex Female 10:14 AM EDT Gender Identity Female 06/29/2022 10:14 AM EDT Sexual Orientation Straight 06/29/2022 10 :14 AM EDT Last Filed Vital Signs Vital Sign Reading Time Taken Comments Blood Pressure 100/60 01/01/2025 2:45 PM EDT Pulse 66 01/01/2025 2:45 PM EDT Temperature - - Respiratory Rate - - Oxygen Saturation - - Inhaled Oxygen Concentration - - Weight - - Height - - Body Mass Index - - Plan of Treatment Upcoming Encounters Date Type Department Care Team (Late st Contact Info) Description 07/06/2025 2:15 PM EST Office Visit [facility] ADULT DENTAL [address] [place] [address] Alex Sadler Health Maintenance Due Date Last Done Comments CT Colonography 1964 Colonoscopy 1964 Colorectal Cancer Screening 1964 Depression Screening 1964 FIT DNA/Cologuard 1964 FIT 1964 FOBT 1964 HIV Screening 1964 Lipid Panel 1964 SDOH Screening 1964 Sigmoidoscopy 1964 Disability Screening 1964 Alcohol/Substance Use Screening 1976 Hepatitis C Screening 1982 Hepatitis A Vaccines (1 of 2 - Risk 2-dose series) 1983 Pap Smear 1985 Cervical Cancer Screening 1994 HPV/Cotest 1994 Hepatitis B Vaccines (3 of 3 - Risk 3-dose series) 08/25/2006 03/25/2006, 02/23/2006 Zoster Vaccines (1 of 2) 2014 Pneumococcal Vaccine: 50+ Years (2 of 2 - PCV) 07/04/2022 07/04/2021 RSV Patients and Patients Aged 60 years or older (1 - Risk 60-74 years 1-dose series) 2024 COVID-19 Vaccine (3 - 2024- season) 2025 01/19/2021, 12/22/2020 Influenza Vaccine (#1) 2025 Mammogram 06/03/2025 06/03/2023 Dental Oral Exam 07/05/2025 01/01/2025, 12/2022, 11/07/2021, Additional history exists Dental Prophylaxis 07/05/2025 01/01/2025, 0 05/04/2023, 11/07/2021 Tobacco Screening 01/01/2026 01/01/2025 Dental X-Ray: Bitewings 01/02/2026 01/02/20 25, 09/16/2023, 05/04/2023, Additional history exists Dental X-Ray: Full Mouth 07/01/2027 06/30/2024, 07/30 DTaP/Tdap/Td Vaccines (3 - Td or Tdap) 11/17/2033 11/18/2023, 12/07/2012, 08/21/1996, Additional history exists HIB Vaccines Aged Out No longer eligi ble based on patient's age to complete this topic HPV Vaccines Aged Out No longer eligi ble based on patient's age to complete this topic IPV Vaccines Aged Out No longer eligi ble based on patient's age to complete this topic Meningococcal B Vaccine Aged Out No l onger eligible based on patient's age to complete this topic Meningococcal Vaccine Aged Out No akbar danielle eligible based on patient's age to complete this topic RSV under 20 months Aged Out No longe r eligible based on patient's age to complete this topic Rotavirus Vaccines Aged Out No longer eligible based on patient's age to complete this topic Procedures Procedure Name Priority Date/Time Associated Diagnosis Comments Full PROPHYLAXIS - ADULT Routine 025 3:00 PM EDT BITEWINGS - 4 RADIOGRAPHIC IMAGES Routine 01/01/2025 3:00 PM EDT PERIODIC ORAL EVALUATION - ESTABLISHED PATIENT Routine 01/01/2025 3:00 PM EDT PANORAMIC RADIOGRAPHIC IMAGE Routine 06/30/2024 1:30 PM EDT from Last 3 Months or Most Recently Relevant to Health Maintenance [facility] ST[facility] ADULT
--- OUTSIDE RECORDS SUMMARY | 2025-05-08 17:38 | XMS_ITS | Encounter Summary ---
Author Organization [facility] Address [address] [place] [address] Care Team Providers Care Outside Rigger Name Role Phone Villa Perez MD Primary Care Provider [phone] Encounter Details Date Type Department Care Team (Late Contact Info) Description 02/22/[address] [facility] - Main Lab [address] [facility] [place] [address] Keisha Davidson MD [address] [place] [address] Urinary tract infection, site not specified Social History Tobacco Use Types Packs/Day Years Used Date Smoking Tobacco: Never Smokeless Tobacco: Never Alcohol Use Standard Drinks/Week Comments No 0 (1 standard drink = 0.6 oz pur e alcohol) Comments Unknown Sex and Gender Information Value Date Recorded Sex Assigned at Female 12/11/2024 12:47 PM EDT Legal Sex Female 4:17 AM EST Gender Identity Female 12/11/2024 12:47 PM EDT Sexual Orientation Not on file documented as of this encounter Plan of Treatment Upcoming Encounters Date Type Department Care Team (Late Contact Info) Description 05/14/2025 2:00 PM EDT Treatment Pelvic Floor Rehabilitation [address] [phone] Olimpia Max, PT [address] [id number] 07/30/2025 2:30 PM EST Office Visit Urogynecology - [address] [phone] Vickie Tolentino MD [address] [address] documented as of this encounter Procedures Procedure Name Priority Date/Time Associated Diagnosis Comments URINALYSIS WITH REFLEX MICROSCOPIC Routine 02/22/2025 12:00 AM EDT Urinary tract infection, site not specified URINALYSIS WITH REFLEX MICROSCOPIC Routine 02/22/2025 12:00 AM EDT Urinary tract infection, site not specified CULTURE URINE Routine 02/22/2025 12:00 AM EDT Urinary tract infection, site not specified documented in this encounter Results * (ABNORMAL) Urinalysis with reflex microscopic (02/22/2025 12:00 AM EDT) Specific [place] Urine 1.020 1.003 - 1.030 LAB URINALYSIS - AUTOMATED METHOD 02/22/2025 7:09 PM [facility] pH, Urine 6.0 5.0 - 8.0 pH LAB URINALYSIS - AUTOMATED METHOD 02/22/2025 7:09 PM [facility] Leukocytes, Urine Small(A) Negative LAB URINALYSIS - AUTOMATED METHOD 02/22/2025 7:09 PM [facility] Nitrite, Urine Negative Negative LAB URINALYSIS - AUTOMATED METHOD 02/22/2025 7:09 PM [facility] Protein, Urine Negative <=Trace mg/dL LAB URINALYSIS - AUTOMATED METHOD 02/22/2025 7:09 PM [facility] Glucose, Urine Negative Negative mg/dL LAB URINALYSIS - AUTOMATED METHOD 02/22/2025 7:09 PM [facility] Ketones, Urine Negative Negative mg/dL LAB URINALYSIS - AUTOMATED METHOD 02/22/2025 7:09 PM [facility] Urobilinogen, Urine 0.2 0.2 - 1.0 mg/dL LAB URINALYSIS - AUTOMATED METHOD 02/22/2025 7:09 PM [facility] Bilirubin, Urine Negative Negative LAB URINALYSIS - AUTOMATED METHOD 02/22/2025 7:09 PM [facility] Blood, Urine Negative Negative LAB URINALYSIS - AUTOMATED METHOD 02/22/2025 7:09 PM [facility] RBC, Urine 7.5(H) 0 - 4 /HPF LAB URINALYSIS - AUTOMATED METHOD 02/22/2025 7:09 PM [facility] WBC, Urine 7.1(H) 0 - 4 /HPF LAB URINALYSIS - AUTOMATED METHOD 02/22/2025 7:09 PM [facility] Squamous Epithelial, Urine >100(H) 0 - 60 /LPF LAB URINALYSIS - AUTOMATED METHOD 02/22/2025 7:09 PM [facility] Bacteria, Urine Few(A) Negative /HPF LAB URINALYSIS - AUTOMATED METHOD 02/22/2025 7:09 PM [facility] Hyaline Casts, Urine 2.8 0 - 3 /LPF LAB URINALYSIS - AUTOMATED METHOD 02/22/2025 7:09 PM [facility] Urine Urine specimen obtained by clean catch procedure / Unknown 02/22/2025 02/22/2025 6:05 PM EDT us Keisha Davidson MD LAB URINE ORDERABLES Morenita munson Result [facility] [address] [place] [address], [place] [phone] * (ABNORMAL) Culture urine (02/22/2025 12:00 AM EDT) Culture, Urine >100,000 CFU/mL Enterococcus faecalis(A) OWEN 02/24/2025 10:14 AM EDT [facility] Comment: Edited result: Previously reported as Enterococcus species on 02/23/2025 at 1315 EDT. Urine Urine specimen obtained by clean catch procedure / Unknown Non-blood Collection / Unknown 02/22/2025 02/22/2025 6:05 PM EDT Narrative Organism Antibiotic Method Susceptibility Enterococcus faecalis Benzylpenicillin OWEN 4 ug/ml: Susceptible Enterococcus faecalis Ampicillin OWEN <=2 ug/ml: Susceptible Enterococcus faecalis Ciprofloxacin OWEN 1 ug/ml: Susceptible Enterococcus faecalis Levofloxacin OWEN 1 ug/ml: Susceptible Enterococcus faecalis Linezolid OWEN 2 ug/ml: Susceptible Enterococcus faecalis Vancomycin OWEN 1 ug/ml: Susceptible Enterococcus faecalis Tetracycline OWEN >=16 ug/ml: Resistant Enterococcus faecalis Nitrofurantoin OWEN <=16 ug/ml: Susceptible us Keisha Davidson MD LAB MICROBIOLOGY - GENERA L ORDERABLES Final Result [facility] [address] [place] [address], [place] [phone] documented in this encounter Visit Diagnoses Diagnosis Urinary tract infection, site not specified documented in this encounter Care Teams Outside Rigger Relationship Specialty Start Date End Date Villa Perez MD [address] [place] [id number] PCP - General Internal Medicine 07/17/11 documented as of this encounter
--- OUTSIDE RECORDS SUMMARY | 2025-05-08 17:38 | XMS_ITS | Clinical Summary ---
Author Organization [facility] [address] [facility] Address [address] [place], [place] Phone Care Team Providers Care Ladle Filler Name Role Phone Villa Perez MD Primary Care Provider [phone] Allergies Active Allergy Reactions Criticality Noted Date Comments Latex Burning Eyes 04/24/2025 Medications ascorbic acid (VITAMIN C) 500 mg tablet TOME KATINA TABLETA TODOS [place] 0 Active vitamin E mixed 400 unit capsule TOME KATINA CAPSULA TODOS [place] 0 Active albuterol HFA (PROAIR HFA ; PROVENTIL HFA ; VENTOLIN HFA) 90 mcg/actuation inhaler Inhale 2 Puffs into the lungs every 4 hours as needed. Active biotin 1 mg tablet Take 1 Tab by mouth daily. 7 Active calcium carbonate-choleca lciferol 500 mg-10 mcg (400 unit) per tablet Take 1 Tablet by mouth 2 times daily. 2 Active cholecalciferol (VITAMIN D-3) 50 mcg (2,000 unit) capsule TOME KATINA CAPSULA POR VIA ORAL TODOS [place] 8 Active sodium chloride (AYR) 0.65 % nasal drops USE 1 SPRAY BY NASAL ROUTE CUANDO SEA NECESARIO FOR CONGESTION 4 Active cyclobenzaprine (FLEXERIL) 5 mg tablet Take 5 mg by mouth 2 times daily as needed. Active diclofenac (Voltaren Arthritis Pain) 1 % topical gel PLACE 1 G ONTO THE SKIN 2 TIMES DAILY. 0 Active dicyclomine (BENTYL) 10 mg capsule Take 1 Capsule by mouth 4 times daily (before meals and nightly). 3 Active docusate sodium (COLACE) 100 mg capsule Take 100 mg by mouth 2 times daily. Active FLUoxetine (PROzac) 40 mg capsule Take 40 mg by mouth daily. Active fluticasone propionate (FLONASE) 50 mcg/actuation nasal spray 2 Sprays by Each Nare route daily. Active fluticasone propionate (Flovent Diskus) 100 mcg/actuation diskus inhaler Inhale 1 Puff into the lungs 2 times daily. Active ibuprofen (ADVIL,MOTRIN) 800 mg tablet TOME KATINA TABLETA POR VIA ORAL CADA SEIS A OCHO HORAS CUANDO SEA NECESARIO 8 Active lactulose (CHRONULAC) solution Take 15 mL by mouth daily (with breakfast). Active loperamide (IMODIUM) 2 mg capsule Take 1 Capsule by mouth 4 times daily as needed for Diarrhea. 3 Active meclizine (ANTIVERT) 25 mg tablet Take 1 Tab by mouth as needed. Active methocarbamoL (ROBAXIN) 750 mg tablet Take 750 mg by mouth 3 times daily. Active metoprolol tartrate (LOPRESSOR) 100 mg tablet Take 100 mg by mouth daily. Active oxyCODONE (ROXICODONE) 20 mg immediate release tablet Take 20 mg by mouth 3 times daily as needed. Active pantoprazole (PROTONIX) 20 mg EC tablet Take 1 Tablet by mouth every morning (before breakfast). Take in am on empty stomach, wait 30 mins and then eat to activate the medication 3 Active polyethylene glycol-electrolyt es (NULYTELY) 420 gram solution Take 4,000 mL by mouth once for 1 dose. Follow directions given by our office. 9 Active propafenone (RYTHMOL) 225 mg tablet Take 225 mg by mouth every 8 hours. Active pseudoephedrine (SUDAFED) 30 mg tablet TAKE 1 TAB BY MOUTH EVERY 4 HOURS NEEDED FOR CONGESTION FOR UP TO 10 DAYS. 8 Active sulfamethoxazole- trimethoprim (BACTRIM,SEPTRA) 400-80 mg per tablet Take 1 tablet by mouth Once for 1 dose. Take 1/2 hour before surgery 1 Active SUMAtriptan (IMITREX) 50 mg tablet Take 50 mg by mouth daily as needed. May repeat dose once after 2 hours, if needed. Active zolpidem (AMBIEN) 5 mg tablet Take 5 mg by mouth at bedtime as needed. Active vibegron (GEMTESA) 75 mg tablet tabletIndications :bladder hyperactivity Take 1 tablet (75 mg total) by mouth 1 (one) time each day. 90 tablet 1 5 Active estradioL (ESTRACE) 0.01 % (0.1 mg/gram) vaginal cream Insert 0.5 g into the vagina 1 (one) time each day. Please place 0.5g (a pea-sized amount) on your finger and place inside the vagina for 2 weeks at night, and then twice a week at night 42.5 g 3 5 Active Active Problems Problem Noted Date Diagnosed Date Cataract 09/20/2018 Tubular adenoma 09/20/2018 Allergic rhinitis 08/15/2018 Asthma 08/15/2018 Constipation 08/15/2018 Dizziness 08/15/2018 CIRA (generalized anxiety disorder) 08/15/2018 Overview (06/21/2024): Follows [facility] Counseling GERD (gastroesophageal reflux disease) 8 IBS (irritable bowel syndrome) 08/15/2018 Insomnia 08/15/2018 Joint pain 08/15/2018 Overview (06/21/2024): Followed by Dr. Moncada MDD (major depressive disorder) 08/15/2018 Overview (06/21/2024): Follows [facility] counseling Migraine 08/15/2018 Osteoarthritis 08/30/2004 Encounters Date Type Department Care Team Description 04/24/2025 10:00 AM EDT Office Visit U[address]gynecolog[address] [phone] Vickie Tolentino MD Urge incontinence (Primary Dx); Nocturia; Urinary urgency; Urinary frequency; TYLOR (stress urinary incontinence, female) 03/14/2025 Lab Requisition [facility] [address] [facility] [place] [address] Keisha Davidson MD Urinary tract infection, site not specified; Other specified noninflammatory disorders of vagina 02/22/2025 Lab Requisition [facility] [address] [facility] [place] [address] Keisha Davidson MD Urinary tract infection, site not specified from Last 3 Months Immunizations Name Administration Dates Next Due Hepatitis B (Bsqvzto-Q-Oilyl , Recombivax HB-Adult) 19yo and older 03/25/2006,02/23/2006 Td Tetanus diptheria (Tdvax) 7yo and older 08/21 Tdap Tetanus diptheria acell ular pertussis (Boostrix; Adacel) 7yo and older 12/07/2012 Surgical History Surgery Date Site/Laterality Comments OTHER SURGICAL HISTORY 2007 PROCEDURE: [place] LIG/TRNSXJ FLP TUBE ABDL/VAG APPR UNI/BI KNEE ARTHROSCOPY 2016 Left PROCEDURE: AZ ARTHROSCOPY AID TX SPINE&/FX KNEE W/O FIXJ OTHER SURGICAL HISTORY 05/07/2016 PROCEDURE: AZ UNLISTED HYSTEROSCOPY PROCEDURE UTERUS; COMMENT: Operative D&C, hysteroscopy with resection of submucosal fibroid FEMUR FRACTURE SURGERY 1995 Left PROCEDURE: AZ OPEN TX FEMORAL FRACTURE DISTAL MED/LAT CONDYLE; COMMENT: AZ OTHER SURGICAL HISTORY 12/12/2010 PROCEDURE: OUTSIDE ENDOSCOPY; COMMENT: small hiatal hernia, inflammation of the GEJ, GERD OTHER SURGICAL HISTORY 07/10/2015 PROCEDURE: OUTSIDE ENDOSCOPY; COMMENT: small hiatal hernia, diverticulosis COLONOSCOPY 06/2015 PROCEDURE: OUTSIDE COLONOSCOPY; COMMENT: adenomatous polyps OTHER SURGICAL HISTORY PROCEDURE: HISTORY OTHER; COMMENT: Throat Mass excision SHOULDER ARTHROSCOPY Right PROCEDURE: AZ SURGICAL ARTHROSCOPY SHOULDER W/LSS&RESCJ ADS COLONOSCOPY 12/08/2018 PROCEDURE: HISTORICAL COLONOSCOPY; COMMENT: negative TUBAL LIGATION Medical History Medical History Date Comments Constipation DX:Constipation IBS (irritable bowel syndrome) 08/15/2018 D X:IBS (irritable bowel syndrome) GERD (gastroesophageal reflux disease) 8 DX:GERD (gastroesophageal reflux disease) Asthma 08/15/2018 DX:Asthma CIRA (generalized anxiety disorder) 08/15/2018 DX:CIRA (generalized anxiety disorder) Tubular adenoma 09/20/2018 DX:Tubular adeno ma Allergic rhinitis 08/15/2018 DX:Allergic rh initis Dizziness 08/15/2018 DX:Dizziness Insomnia 08/15/2018 DX:Insomnia Joint pain 08/15/2018 DX:Joint pain; C OMMENT: Followed by Dr. Moncada MDD (major depressive disorder) 08/15/2018 DX:MDD (major depressive disorder); COMMENT: Follows [facility] counseling Migraine 08/15/2018 DX:Migraine Osteoarthritis 08/30/2004 DX:Osteoarthriti s Cataract 09/20/2018 DX:Cataract PND (post-nasal drip) DX:PND (po st-nasal drip) Family History Medical History Relation Name Comments Hypertension Brother Diabetes Throat cancer Father age 48 Throat cancer Father's side 1 2 Half Brot hers Alzheimer's disease Father's side 2 Pater nal Aunt Alzheimer's disease Father's side 3 Pater nal Uncle No Known Problems Maternal Grandfather No Known Problems Maternal Grandmother Hypertension Mother Diabetes,Arthri tis Breast cancer Mother's side 1 Maternal Au nt Breast cancer Mother's side 2 Maternal 1s t Cousin No Known Problems Paternal Grandfather No Known Problems Paternal Grandmother No Known Problems Sister Blindness Neg Hx Cataracts Neg Hx Cervical cancer Neg Hx Colon cancer Neg Hx Glaucoma Neg Hx Macular degeneration Neg Hx Ovarian cancer Neg Hx Prostate cancer Neg Hx Strabismus Neg Hx Relation Name Status Comments Brother Father Father's side 1 Father's side 2 Father's side 3 Maternal Grandfather Maternal Grandmother Mother Mother's side 1 Mother's side 2 Other uncle thraot 55 umcle prostate 55 aunt liver 65 mom cousin pancreas 65mom cousin breast 57 aunt Paternal Grandfather Paternal Grandmother Sister Social History Tobacco Use Types Packs/Day Years Used Date Smoking Tobacco: Never Smokeless Tobacco: Never Tobacco Cessation:Counseling Given: Not Answered Alcohol Use Standard Drinks/Week Comments No 0 (1 standard drink = 0.6 oz pur e alcohol) Comments No Sex and Gender Information Value Date Recorded Sex Assigned at Female 12/11/2024 12:47 PM EDT Legal Sex Female 4:17 AM EST Gender Identity Female 12/11/2024 12:47 PM EDT Sexual Orientation Not on file Obstetrics History Last Filed Vital Signs Vital Sign Reading Time Taken Comments Blood Pressure 107/73 04/24/2025 9:56 AM EDT Pulse 77 04/24/2025 9:56 AM EDT Temperature - - Respiratory Rate 14 04/24/2025 9:56 AM EDT Oxygen Saturation - - Inhaled Oxygen Concentration - - Weight 79.7 kg (175 lb 9.6 oz) 04/24/2025 9:56 A M EDT Height 160 cm (5' 3 ) 08/19/2023 3:34 PM EST Body Mass Index 31.11 08/19/2023 3:34 PM EST Plan of Treatment Upcoming Encounters Date Type Department Care Team (Late st Contact Info) Description 05/14/2025 2:00 PM EDT Treatment Pelvic Floor Rehabilitation - [address] [phone] Olimpia Max, PT [address] [phone] 07/30/2025 2:30 PM EST Office Visit Urogynecology - [address] [phone] Vickie Tolentino MD [address] [address] Health Maintenance Due Date Last Done Comments Hepatitis A Vaccines (1 of 2 - Risk 2-dose series) 1983 Hepatitis B Vaccines (3 of 3 - Risk 3-dose series) 08/25/2006 03/25/2006, 02/23/2006 Zoster Vaccines (1 of 2) 2014 Pneumococcal Vaccine: 50+ Years (2 of 2 - PCV) 07/04/2022 07/04/2021 Medicare Annual Wellness Visit 08/08/2022 Social Influencers of Health Screening 08/08/2022 RSV Immunization Adult Patients (1 - Risk 60-74 years 1-dose series) 2024 Depression Screening 08/30/2024 COVID-19 Vaccine (3 - season) 2025 01/19/2021, 12/22/2020 Influenza Vaccine (#1) 2025 Breast Cancer Screening 06/03/2025 06/03/20, 04/16/2022, 04/29/2020, Additional history exists Hypertension/CHF/CAD Annual BMP Blood Test 03/13/2026 03/13/2025 Cervical Cancer Screening: HPV 08/19/2028 08/19/2023 Colorectal Cancer Screening: Colonoscopy 12/08/2028 12/08/2018 Cholesterol Screening (Lipid Panel) 03/13/2030 03/13/2025 DTaP,Tdap,and Td Vaccines (4 - Td or Tdap) 11/17/2033 11/18/2023, 12/07/2012, 08/21/1996 HIV Screening Completed 01/19/2022 Hepatitis C Screening Completed 03/13/2025, 022 HIB Vaccines Aged Out No longer eligi ble based on patient's age to complete this topic HPV Vaccines Aged Out No longer eligi ble based on patient's age to complete this topic IPV Vaccines Aged Out No longer eligi ble based on patient's age to complete this topic MMR Vaccines Aged Out No longer eligi ble based on patient's age to complete this topic Meningococcal ACWY Vaccine Aged Out N o longer eligible based on patient's age to complete this topic Meningococcal B Vaccine Aged Out No l onger eligible based on patient's age to complete this topic RSV Immunization Patients Under 20 months Aged Out No longer eligible based on patient's age to complete this topic Varicella Vaccines Aged Out No longer eligible based on patient's age to complete this topic Procedures Procedure Name Priority Date/Time Associated Diagnosis Comments POC URINE AUTO W/O MICRO Routine 04/24/2025 2:34 PM EDT Urinary frequency URINALYSIS WITH REFLEX MICROSCOPIC Routine 03/14/2025 12:00 AM EDT Urinary tract infection, site not specified Other specified noninflammatory disorders of vagina URINALYSIS WITH REFLEX MICROSCOPIC Routine 03/14/2025 12:00 AM EDT Urinary tract infection, site not specified Other specified noninflammatory disorders of vagina CULTURE URINE Routine 03/14/2025 12:00 AM EDT Urinary tract infection, site not specified Other specified noninflammatory disorders of vagina VAGINITIS PATHOGENS BY PCR Routine 03/14/2025 12:00 AM EDT Urinary tract infection, site not specified Other specified noninflammatory disorders of vagina CBC WITH AUTO DIFFERENTIAL Routine 03/13/2025 12:27 PM EDT Fatty metamorphosis of liver Urinary tract infection, site not specified LIVER FIBROSIS, FIBROTEST-ACTITEST PANEL Routine 03/13/2025 12:27 PM EDT Fatty metamorphosis of liver Urinary tract infection, site not specified TREPONEMA PALLIDUM ANTIBODY WITH REFLEX TO RPR AND PARTICLE AGGLUTINATION Routine 03/13/2025 12:27 PM EDT Fatty metamorphosis of liver Urinary tract infection, site not specified CBC AND DIFFERENTIAL Routine 03/13/2025 12:27 PM EDT Fatty metamorphosis of liver Urinary tract infection, site not specified THYROID STIMULATING HORMONE Routine 03/13/2025 12:27 PM EDT Fatty metamorphosis of liver Urinary tract infection, site not specified Prediabetes LIPID PANEL WITH REFLEX TO DIRECT LDL Routine 03/13/2025 12:27 PM EDT Fatty metamorphosis of liver Urinary tract infection, site not specified COMPREHENSIVE METABOLIC PANEL Routine 03/13/2025 12:27 PM EDT Fatty metamorphosis of liver Urinary tract infection, site not specified HEPATITIS C ANTIBODY Routine 03/13/2025 12:27 PM EDT Fatty metamorphosis of liver Urinary tract infection, site not specified URINALYSIS WITH REFLEX MICROSCOPIC Routine 02/22/2025 12:00 AM EDT Urinary tract infection, site not specified URINALYSIS WITH REFLEX MICROSCOPIC Routine 02/22/2025 12:00 AM EDT Urinary tract infection, site not specified CULTURE URINE Routine 02/22/2025 12:00 AM EDT Urinary tract infection, site not specified HPV Routine 08/19/2023 [facility] SCREENING DIGITAL Routine 06/03/2023 2:49 PM EDT Encounter for screening mammogram for malignant neoplasm of breast HIV SCREENING Routine 01/19/2022 COLONOSCOPY Routine 12/08/2018 from Last 3 Months or Most Recently Relevant to Health Maintenance Results * POC Urine Auto W/O Micro (04/24/2025 2:34 PM EDT) Pathologist [facility] Leukocytes UA POC Negative Negative Nitrite UA POC Negative Negative Urobilinogen UA POC Negative Negative Protein UA POC Negative Negative PH UA POC 5.0 5.0 - 9.0 Blood UA POC Negative Negative, Trace Specific [place] UA POC 1.015 1.001 - 1.035 Ketones UA POC Negative Negative Bilirubin UA POC Negative Negative Glucose UA POC Normal Normal, Trace Urine Urine specimen obtained by clean catch procedure / Unknown 04/24/2025 2:34 PM EDT Vickie Tolentino MD POINT OF CARE TEST ENTER/EDIT OR DERABLES Final Result * Urinalysis with reflex microscopic (03/14/2025 12:00 AM EDT) Only the most recent of2 resultswithin the time period is included. Pathologist [facility] Specific [place] Urine 1.018 1.003 - 1.030 LAB URINALYSIS - AUTOMATED METHOD 03/14/2025 7:41 PM EDT [facility] pH, Urine 5.5 5.0 - 8.0 pH LAB URINALYSIS - AUTOMATED METHOD 03/14/2025 7:41 PM EDT [facility] Leukocytes, Urine Negative Negative LAB URINALYSIS - AUTOMATED METHOD 03/14/2025 7:41 PM EDT [facility] Nitrite, Urine Negative Negative LAB URINALYSIS - AUTOMATED METHOD 03/14/2025 7:41 PM EDT [facility] Protein, Urine Negative <=Trace mg/dL LAB URINALYSIS - AUTOMATED METHOD 03/14/2025 7:41 PM EDT [facility] Glucose, Urine Negative Negative mg/dL LAB URINALYSIS - AUTOMATED METHOD 03/14/2025 7:41 PM EDT [facility] Ketones, Urine Negative Negative mg/dL LAB URINALYSIS - AUTOMATED METHOD 03/14/2025 7:41 PM EDT [facility] Urobilinogen, Urine 0.2 0.2 - 1.0 mg/dL LAB URINALYSIS - AUTOMATED METHOD 03/14/2025 7:41 PM EDT [facility] Bilirubin, Urine Negative Negative LAB URINALYSIS - AUTOMATED METHOD 03[facility] Blood, Urine Negative Negative LAB URINALYSIS - AUTOMATED METHOD 03/14/2025 7:41 PM T [facility] Urine Urine specimen obtained by clean catch procedure / Unknown 03/14/2025 03/14/2025 6:56 PM EDT us Keisha Davidson MD LAB URINE ORDERABLES Morenita munson Result [facility] [address] [place] [address], * Vaginitis pathogens molecular study (03/14/2025 12:00 AM EDT) Trichomonas vaginalis Negative Negative 03/15/2025 11:27 AM EDT [facility] Gardnerella vaginalis Negative Negative 03/15/2025 11:27 AM EDT [facility] Alise Species Negative Negative 11:27 AM T [facility] Swab Vaginal structure / Unknown 03/14/2025 03/14/2025 6:56 PM EDT us Keisha Davidson MD LAB MICROBIOLOGY - GENERA L ORDERABLES Final Result Performing Organization Address [facility]/ZIP Co de Phone Number [facility] [address] [place] [address], [place] [phone] * Culture urine (03/14/2025 12:00 AM EDT) Only the most recent of2 resultswithin the time period is included. Pathologist [facility] Culture, Urine 10,000-49,000 CFU/mL Mixed urogenital luisa, no uropathogens present. Suggest repeat specimen if clinically indicated. 03/15/2025 2:10 PM EDT [facility] Urine Urine specimen obtained by clean catch procedure / Unknown 03/14/2025 03/14/2025 6:56 PM EDT us Keisha Davidson MD LAB MICROBIOLOGY - GENERA L ORDERABLES Final Result Performing Organization Address [facility] de Phone Number [facility] [address] [place] [address], [place] [phone] * Hepatitis C antibody (03/13/2025 12:27 PM EDT) Pathologist [facility] Hepatitis C Antibody Negative Negative LAB CHEMISTRY METHOD 03/13/2025 5:58 PM EDT [facility] Blood Venous blood specimen / Unknown Venipuncture / Unknown 03/13/2025 12:27 PM EDT 03/13/2025 2:42 PM EDT us Keisha Davidson MD LAB BLOOD ORDERABLES Morenita l Result Performing Organization Address City/[facility]/ZIP Co de Phone Number [facility] [address] [place] [address], [place] [phone] * Treponema pallidum antibody with reflex to RPR and particle agglutination (03/13/2025 12:27 PM EDT) [facility] T. Pallidum Antibodies Negative Negative LAB CHEMISTRY METHOD 03/13/2025 7:46 PM EDT [facility] Blood Venous blood specimen / Unknown Venipuncture / Unknown 03/13/2025 12:27 PM EDT 03/13/2025 2:42 PM EDT us Keisha Davidson MD LAB BLOOD ORDERABLES Morenita l Result [facility] [address] [place] [address], [place] [phone] * (ABNORMAL) Lipid panel with reflex to direct LDL (03/13/2025 12:27 PM EDT) [facility] Cholesterol 212(H) 0 - 200 mg/dL LAB CHEMISTRY METHOD 03/13/2025 4:04 PM EDT [facility] Triglycerides 154(H) 0 - 150 mg/dL LAB CHEMISTRY METHOD 03/13/2025 4:04 PM [facility] HDL 40 >=40 mg/dL LAB CHEMISTRY METHOD 03/13/2025 4:04 PM T [facility] LDL Calculated 141(H) 0 - 100 mg/dL LAB CHEMISTRY METHOD 03/13/2025 4:04 PM T [facility] VLDL Cholesterol Desmond 30.8 mg/dL LAB CHEMISTRY METHOD 03/13/2025 4:04 PM T [facility] Non HDL Chol. (LDL+VLDL) 172(H) <145 mg/dL LAB CHEMISTRY METHOD 03/13/2025 4:04 PM [facility] Chol/HDL Ratio 5.3(H) 0.0 - 4.4 LAB CHEMISTRY METHOD 03/13/2025 4:04 PM [facility] Blood Venous blood specimen / Unknown Venipuncture / Unknown 03/13/2025 12:27 PM EDT 03/13/2025 2:42 PM EDT us Keisha Davidson MD LAB BLOOD ORDERABLES Morenita arpit Result [facility] ([facility]) [facility] [address] [place] [address], * Liver fibrosis, fibrotest-actitest panel (03/13/2025 12:27 PM EDT) Fibrosis Score 0.09 03/23/2025 4:38 AM EDT [facility] Fibrosis Stage F0 03/23/2025 4:38 AM EDT [facility] Fibrosis Interpretation SEE NOTE 03/23/2025 4:38 AM EDT [facility] Comment: no fibrosis Fibro Test Score (f) Metavir Score f>=0 and f<=0.21 : F0 (no fibrosis) f>0.21 and f<=0.27 : F0-F1 (no fibrosis) f>0.27 and f<=0.31 : F1 (minimal fibrosis) f>0.31 and f<=0.48 : F1-F2 (minimal fibrosis) f>0.48 and f<=0.58 : F2 (moderate fibrosis) f>0.58 and f<=0.72 : F3 (advanced fibrosis) f>0.72 and f<=0.74 : F3-F4 (advanced fibrosis) f>0.74 and f<=1.00 : F4 (severe fibrosis) Necroinflammat Activity Score 0.02 03/23/2025 4:38 AM EDT [facility] Necroinflammat Activity Grade A0 03/23/2025 4:38 AM EDT [facility] Necroinflammat Interpretation SEE NOTE 03/23/2025 4:38 AM EDT [facility] Comment: no activity ActiTest Score (a) Metavir Score a>=0 and a<=0.17 : A0 (no activity) a>0.17 and a<=0.29 : A0-A1 (no activity) a>0.29 and a<=0.36 : A1 (minimal activity) a>0.36 and a<=0.52 : A1-A2 (minimal activity) a>0.52 and a<=0.60 : A2 (significant activity) a>0.60 and a<=0.62 : A2-A3 (significant activity) a>0.62 and a<=1.00 : A3 (severe activity) Bilirubin Total 0.3 0.2 - 1.2 mg/dL 03/23/2025 4:38 AM EDT [facility] Gamma Glutamyl Transferase (GGT) 14 3 - 65 U/L 03/23/2025 4:38 AM EDT [facility] Alanine Aminotransferase (ALT) 9 6 - 29 U/L 03/23/2025 4:38 AM EDT [facility] [id number] n 155 106 - 279 mg/dL 03/23/2025 4:38 AM EDT [facility] Haptoglobin 129 43 - 212 mg/dL 03/23/2025 4:38 AM EDT [facility] Apolipoprotein A1 131 101 - 198 mg/dL 03/23/2025 4:38 AM EDT [facility] Reference ID [id number] 03/23/2025 4:38 AM EDT [facility] Footnote SEE NOTE 03/23/2025 4:38 AM EDT [facility] Comment: The reliability of results is dependent on compliance with the preanalytical and analytical conditions recommended by [employer]. The tests have to be deferred for: acute hemolysis, acute hepatitis, acute inflammation, extra hepatic cholestasis. The advice of a specialist should be sought for interpretation in chronic hemolysis and Gilbert's syndrome. The test interpretation is not validated in liver transplant patients. Isolated extreme values of one of the components should lead to caution in interpreting the results. In case of discordance between a biopsy result and a test, it is recommended to seek the advice of a specialist. The causes of these discordances could be due to a flaw of the test or to a flaw in the biopsy: i.e. a liver biopsy has a 33% variability rate for one fibrosis stage. FibroTest is interpretable for chronic hepatitis B and C, alcoholic and non alcoholic steatosis. ActiTest is interpretable for chronic hepatitis B and C. The performance characteristics have been determined by [facility] [facility]. It has not been cleared or approved by the U.S. Food and Drug Administration. Performance characteristics refer to the analytical performance of the test. [employer], [employer], the associated logo, [employer] and all associated [employer] garcia are the registered trademarks of [employer]. All third alliance party garcia - (R) and (TM) - are the property of their respective owners. (C) [id number] [employer]. All rights reserved. Test Performed at: [facility] [address] [place] [address] Deepti Leal MD, PhD, SAMUEL Blood Venous blood specimen / Unknown Venipuncture / Unknown 03/13/2025 12:27 PM EDT 03/13/2025 2:42 PM EDT Keisha Davidson MD LAB BLOOD ORDERABLES Morenita munson Result [facility] [address] [place] [address] * (ABNORMAL) CBC auto differential (03/13/2025 12:27 PM EDT) WBC 7.7 4.8 - 10.8 K/mcL LAB HEMETOLOGY METHOD 03/13/2025 2:51 PM EDT [facility] RBC 4.10 3.80 - 4.80 M/mcL LAB HEMETOLOGY METHOD 03/13/2025 2:51 PM EDT [facility] Hemoglobin 11.9 11.5 - 16.0 g/dL LAB HEMETOLOGY METHOD 03/13/2025 2:51 PM EDT [facility] [facility] Hematocrit 37.4 35.0 - 47.0 % LAB HEMETOLOGY METHOD 03/13/2025 2:51 PM EDT [facility] MCV 91.4 79.0 - 98.0 FL LAB HEMETOLOGY METHOD 03/13/2025 2:51 PM EDT [facility] MCH 29.1 27.0 - 32.0 pcg LAB HEMETOLOGY METHOD 03/13/2025 2:51 PM EDT [facility] MCHC 31.8(L) 32.0 - 37.0 g/dL LAB HEMETOLOGY METHOD 03/13/2025 2:51 PM EDT [facility] RDW 13.2 11.0 - 15.0 % LAB HEMETOLOGY METHOD 03/13/2025 2:51 PM EDT [facility] Platelets 334 130 - 400 K/mcL LAB HEMETOLOGY METHOD 03/13/2025 2:51 PM EDT [facility] MPV 9.6 7.0 - 11.0 FL LAB [facility]OLOGY [facility] NRBC 0.0 <1.0 % [facility]EM[facility]OLOGY [facility] NRBC Absolute 0.00 <0.10 K/mcL LAB HEMETOLOGY METHOD 03/13/2025 2:51 PM [facility] Neutrophils Relative 56.3 % LAB HEMETOLOGY METHOD 03/13/2025 2:51 PM [facility] Lymphocytes Relative 34.1 % LAB HEMETOLOGY METHOD 03/13/2025 2:51 PM [facility] Monocytes Relative 7.2 % LAB HEMETOLOGY METHOD 03/13/2025 2:51 PM [facility] Eosinophils Relative 1.7 % LAB HEMETOLOGY METHOD [facility] Basophils Relative 0.4 % LAB HEMETOLOGY METHOD 03/13/2025 2:51 PM [facility] Immature Granulocytes Relative 0.3 % LAB HEMETOLOGY METHOD 03/13/2025 2:51 PM [facility] Neutrophils Absolute 4.31 1.50 - 7.00 K/mcL LAB HEMETOLOGY METHOD 03/13/2025 2:51 PM EDT [facility] Lymphocytes Absolute 2.61 1.00 - 5.00 K/mcL LAB HEMETOLOGY METHOD 03/13/2025 2:51 PM EDT [facility] Monocytes Absolute 0.55 0.20 - 1.00 K/mcL LAB HEMETOLOGY METHOD 03/13/2025 2:51 PM EDT [facility] Eosinophils Absolute 0.13 0.00 - 0.50 K/[facility] LAB HEMETOLOGY METHOD 03/13/2025 2:51 PM EDT [facility] Basophils Absolute 0.03 0.00 - 0.20 K/[facility] LAB HEMETOLOGY METHOD 03/13/2025 2:51 PM EDT [facility] Immature Granulocytes Absolute 0.02 0.00 - 0.03 K/[facility] LAB HEMETOLOGY METHOD 03/13/2025 2:51 PM EDT [facility] Blood Venous blood specimen / Unknown Venipuncture / Unknown 03/13/2025 12:27 PM EDT 03/13/2025 2:43 PM EDT Keisha Davidson MD LAB BLOOD ORDERABLES Morenita l Result [facility] [address] [place] [address], * Thyroid stimulating hormone (03/13/2025 12:27 PM EDT) TSH 1.59 0.40 - 4.00 mcIU/mL LAB CHEMISTRY METHOD 03/13/2025 7:36 PM EDT [facility] Blood Venous blood specimen / Unknown Venipuncture / Unknown 03/13/2025 12:27 PM EDT 03/13/2025 2:42 PM EDT Keisha Davidson MD LAB BLOOD ORDERABLES Morenita arpit Result [facility] [address] [place] [address], * Comprehensive metabolic panel (03/13/2025 12:27 PM EDT) Sodium 141 133 - 145 mmol/L LAB CHEMISTRY METHOD 03/13/2025 4:03 PM [facility] Potassium 4.3 3.5 - 5.5 mmol/L LAB CHEMISTRY METHOD 03/13/2025 4:03 PM [facility] Chloride 107 96 - 110 mmol/L LAB CHEMISTRY METHOD 03/13/2025 4:03 PM [facility] CO2 30 21 - 32 mmol/L LAB CHEMISTRY METHOD 03/13/2025 4:03 PM [facility] Anion Gap 4 3 - 11 LAB CHEMISTRY METHOD 03/13/2025 4:03 PM [facility] Glucose 81 70 - 100 mg/dL LAB CHEMISTRY METHOD 03/13/2025 4:03 PM [facility] BUN 16 5 - 25 mg/dL LAB CHEMISTRY METHOD 03/13/2025 4:03 PM [facility] Creatinine 0.63 0.50 - 1.10 mg/dL LAB CHEMISTRY METHOD 03/13/2025 4:03 PM [facility] eGFR 102 >=60 mL/min/1. 73m2 LAB CHEMISTRY METHOD 03/13/2025 4:03 PM [facility] Comment:Calculation based on the Chronic Kidney Disease Epidemiology Collaboration (CKD-EPI) equation refit without adjustment for race. BUN/Creatinine Ratio 25.4 LAB CHEMISTRY METHOD 03/13/2025 4:03 PM [facility] Calcium 8.6 8.5 - 10.5 mg/dL LAB CHEMISTRY METHOD 03/13/2025 4:03 PM EDT [facility] AST (SGOT) 10 10 - 42 unit/L LAB CHEMISTRY METHOD 03/13/2025 4:03 PM EDT [facility] ALT (SGPT) 19 10 - 60 unit/L LAB CHEMISTRY METHOD 03/13/2025 4:03 PM EDT [facility] Alkaline Phosphatase 116 42 - 121 unit/L LAB CHEMISTRY METHOD 03/13/2025 4:03 PM EDT [facility] Total Protein 6.6 6.0 - 8.0 g/dL LAB CHEMISTRY METHOD 03/13/2025 4:03 PM EDT [facility] Albumin 3.6 3.2 - 5.0 g/dL LAB CHEMISTRY METHOD 03/13/2025 4:03 PM EDT [facility] Total Bilirubin 0.5 0.0 - 1.4 mg/dL LAB CHEMISTRY METHOD 03/13/2025 4:03 PM EDT [facility] Blood Venous blood specimen / Unknown Venipuncture / Unknown 03/13/2025 12:27 PM EDT 03/13/2025 2:42 PM EDT Keisha Davidson MD LAB BLOOD ORDERABLES Morenita l Result [facility] [address] [place] [address], * Cervical Cancer Screening: HPV (08/19/2023) Pathologist [facility] Cervical Cancer Screening: HPV Negative, Abstracted Historical Provider HEALTH MAINTENANCE Final Result * [facility] SCREENING DIGITAL (06/03/2023 2:49 PM EDT) Anatomical Region Laterality Modality Mammography 06/03/2023 1:57 PM EDT Narrative 06/03/2023 2:49 PM EDT [facility] Diagnostic Imaging Department [address] [place] [address] Patient: RONALD VERGARA /Age/Sex: 1965 - 57 - F Unit#: [id number] Location/Status: SPDIMAM/REG CLI Mnemonic/[facility]ing [facility] Ordering Physician: JAIDA VALLE METAL WORK DUCT INSTALLER [facility] Screening Digital - 06/03/23 - 1412 Report Status:Signed EXAM: [facility] Screening Digital EXAM DATE AND TIME: 06/03/2023 2:12 PM HISTORY: Annual screening multiple exams dating back to 2015 COMPARISON: TECHNIQUE: Bilateral digital breast tomosynthesis was performed in the CC and MLO projections. Computer aided detection with [employer] 3D 3.1 was employed. TISSUE DENSITY: b. There are scattered areas of fibroglandular density. FINDINGS: No suspicious masses, grouped microcalcifications, or areas of architectural distortion are seen. The skin and vascularity are unremarkable. IMPRESSION: Stable mammographic appearance of the breasts. No evidence of malignancy is seen. A negative mammogram in the presence of a clinically suspicious palpable abnormality does not preclude the possibility of malignancy or alter the indications for biopsy. BI-RADS: Category 1: Negative RECOMMENDATION(S): 1: Routine screening mammogram BILATERAL in 1 year. 3341F, 7025F Dictating Physician: DAFNE ZAMORANO MD Electronically Signed by: DAFNE ZAMORANO MD Dic Date/Time: 06/03/23 1448 Sign date/Time: 06/03/23 144 Procedure Note Dafne Zamorano - 10/05/2023 [facility] Diagnostic Imaging Department [address] [place] [address] Patient: CAITLYN VERGARAIBEL /Age/Sex: 1965 - 57 - F Unit#: [id number] Location/Status: SPDIMAM/REG CLI Mnemonic/Ordering Site[facility] Ordering Physician: JAIDA VALLE METAL WORK DUCT INSTALLER [facility] Screening Digital - 06/03/23 - 1412 Report Status:Signed EXAM: [facility] Screening Digital EXAM DATE AND TIME: 06/03/2023 2:12 PM HISTORY: Annual screening multiple exams dating back to 2015 COMPARISON: TECHNIQUE: Bilateral digital breast tomosynthesis was performed in the CCand MLO projections. Computer aided detection with [employer] 3D 3.1was employed. TISSUE DENSITY: b. There are scattered areas of fibroglandular density. FINDINGS: No suspicious masses, grouped microcalcifications, or areas ofarchitectural distortion are seen. The skin and vascularity are unremarkable. IMPRESSION: Stable mammographic appearance of the breasts. No evidence of malignancyis seen. A negative mammogram in the presence of a clinically suspicious palpable abnormality does not preclude the possibility of malignancy or alter the indications for biopsy. BI-RADS: Category 1: Negative RECOMMENDATION(S): 1: Routine screening mammogram BILATERAL in 1 year. 3341F, 7025F Dictating Physician: DAFNE ZAMORANO MD Electronically Signed by: DAFNE ZAMORANO MD Dic Date/Time: 06/03/23 1448 Sign date/Time: 06/03/231448 us Jaida Valle METAL WORK DUCT INSTALLER IMG BI PROCEDURES Final R esult * HIV Screening (01/19/2022) HIV Screening Abstracted Historical Provider HEALTH MAINTENANCE Final Result * Colonoscopy (12/08/2018) [facility] Colonoscopy No interpretation , Abstracted Anatomical Region Laterality Modality Other Historical Provider HEALTH MAINTENANCE Final Result from Last 3 Months or Most Recently Relevant to Health Maintenance Insurance MEDICARE MEDICAID - [place] Care Teams Ladle Filler Relationship Specialty Start Date End Date Villa Perez MD [address] [place] [phone] PCP - General Internal Medicine 07/17/11
--- OUTSIDE RECORDS SUMMARY | 2025-05-08 17:38 | XMS_ITS | Encounter Summary ---
Author Organization [facility] Address [address] [place] [address] Care Team Providers Care Mining Manager Name Role Phone Villa Perez MD Primary Care Provider [phone] Encounter Details Date Type Department Care Team (Latest Contact Info) Description 03/14/2025 Lab Requisition [facility] - Main Lab [address] [place] [address] Keisha Davidson MD [address] [place] [address] Urinary tract infection, site not specified; Other specified noninflammatory disorders of vagina Social History Tobacco Use Types Packs/Day Years [...] 2:00 PM EDT Treatment Pelvic Floor Rehabilitation [address] [place] [phone] Olimpia Max, PT [address] [address] 07/30/2025 2:30 PM EST Office Visit Urogynecology - [place] [address] [place], [place] [phone] Vickie Tolentino MD [address] [address] documented as of this encounter Procedures Procedure Name Priority Date/Time Associated Diagnosis Comments URINALYSIS WITH REFLEX MICROSCOPIC Routine 03/14/2025 12:00 [...] specified Other specified noninflammatory disorders of vagina documented in this encounter Results * Urinalysis with reflex microscopic (03/14/2025 12:00 AM EDT) Specific Moore Urine 1.018 1.003 - 1.030 LAB URINALYSIS - AUTOMATED METHOD 03/14/2025 7:41 PM EDT [facility] pH, Urine 5.5 5.0 - 8.0 pH LAB URINALYSIS - AUTOMATED METHOD 03/14/2025 7:41 PM [facility] Leukocytes, Urine Negative Negative LAB URINALYSIS - AUTOMATED METHOD 03/14/2025 7:41 PM [facility] Nitrite, Urine Negative Negative LAB URINALYSIS - AUTOMATED METHOD 03/14/2025 7:41 PM EDT [facility] Protein, Urine Negative <=Trace mg/dL LAB URINALYSIS - AUTOMATED METHOD 03/14/2025 7:41 PM EDT [facility] Glucose, Urine Negative Negative mg/dL LAB URINALYSIS - AUTOMATED METHOD 03/14/2025 7:41 PM EDT [facility] Ketones, Urine Negative Negative mg/dL LAB URINALYSIS - AUTOMATED METHOD 03/14/2025 7:41 PM EDT [facility] Urobilinogen, Urine 0.2 0.2 - 1.0 mg/dL LAB URINALYSIS - AUTOMATED METHOD 03/14/2025 7:41 PM EDT [facility] Bilirubin, Urine Negative Negative LAB URINALYSIS - AUTOMATED METHOD 03/14/2025 7:41 PM EDT [facility] Blood, Urine Negative Negative LAB URINALYSIS - AUTOMATED METHOD 03/14/2025 7:41 PM EDT [facility] Urine Urine specimen obtained by clean catch procedure / Unknown 03/14/2025 03/14/2025 6:56 PM EDT Keisha Davidson MD LAB URINE ORDERABLES Morenita munson Result [facility] [address] [place] [address], * Culture urine (03/14/2025 12:00 AM EDT) Culture, Urine 10,000-49,000 CFU/mL Mixed urogenital luisa, no uropathogens present. Suggest repeat specimen if clinically indicated. 03/15/2025 2:10 PM EDT [facility] Urine Urine specimen obtained by clean catch procedure / Unknown 03/14/2025 03/14/2025 6:56 PM EDT Keisha Davidson MD LAB MICROBIOLOGY - GENERA L ORDERABLES Final Result Performing Organization Address [facility] Co de Phone Number [facility] [address] [place] [address], [place] [phone] * Vaginitis pathogens molecular study (03/14/2025 12:00 AM EDT) Trichomonas vaginalis Negative Negative 03/15/2025 11:27 AM EDT [facility] Gardnerella vaginalis Negative Negative 03/15/2025 11:27 AM EDT [facility] Alise Species Negative Negative 11:27 AM EDT [facility] Swab Vaginal structure / Unknown 03/14/2025 03/14/2025 6:56 PM EDT Keisha Davidson MD LAB MICROBIOLOGY - GENERA L ORDERABLES Final Result Performing Organization Address [facility] de Phone Number [facility] [address] [place] [address], [place] [phone] documented in this encounter Visit Diagnoses Diagnosis Urinary tract infection, site not specified Other specified noninflammatory disorders of vagina documented in this encounter Care Teams Mining Manager Relationship Specialty Start Date End Date Villa Perez MD [address] [place] [phone] PCP - General Internal Medicine 07/17/11 documented as of this encounter
[2025-05-09 06:41] VITALS: BMI 30.1
[2025-05-09 06:52] VITALS: BP 118/68; PULSE 81; RESP 15; TEMP 36.4; O2SAT 94
[2025-05-09] MEDS: Lactated Ringers 1,000 ML 50 ML IVCONT (07:01)
--- NOTE | 2025-05-09 07:22 | P.CONAN_ITS ---
[facility] Active Problems Active Problems: All Active Problems COVID-19 (Acute) Past Medical History Medical History (Updated 05/09/25 @ 06:53 by Perlita Torres RN) Back pain IBS (irritable bowel syndrome) Asthma Palpitations Vertigo GERD (gastroesophageal reflux disease) Hiatal hernia Migraine Tachycardia Arthritis Family History Family history of problems with anesthesia: No Surgical History Surgical History History of eyelid surgery History of throat surgery History of surgery on lower extremity H/O colonoscopy History of esophagogastroduodenoscopy (EGD) History of Problems with Anesthesia: No Social History Social History Household Members Other:: lives alone Alcohol intake: never Patient Tobacco Use Status: Never used Tobacco Use of substances other than those prescribed or required for medical reasons: No Are you DNR?: No Advance Directives: No Advance Directives Information Provided: Yes Meds Allergies Allergy/AdvReac Type Severity Reaction Status Date / Time No Known Allergies Allergy Verified 05/09/25 06:41 Active Medications: Current Medications Lactated Ringer's (Lr) 1,000 mls @ 50 mls/hr IVCONT .Q20H FERNIE Last Admin: 05/09/25 07:01 Dose: 50 mls/hr Naloxone HCl (Naloxone Hcl 0.4 Mg/Ml Vial) 0.04 mg IVPUSH Q5M PRN PRN Reason: Excessive sedation or RR < 8 Sodium Biphosphate/Sodium Phosphate (Sodium Phosphate,Huerfano-Dibasic 133 Ml Enema) 133 ml DE ONCE PRN PRN Reason: Poor Colonoscopy Prep Results Home Medications ?Medication ?Instructions ?Recorded ?Confirmed ?Last Taken ?Type Flexeril 5 mg PO DAILY PRN Back Pain 06/19/24 05/09/25 Unknown History dicyclomine 10 mg capsule 10 - 20 mg PO TID PRN cramps 06/19/24 05/09/25 Unknown History loperamide 2 mg capsule (Imodium 2 mg PO Q4-6H PRN Holly rrhea 06/19/24 05/09/25 Unknown History A-D) lorazepam 0.5 mg tablet 0.5 mg PO DAILY PRN Anxiety 06/19/24 05/09/25 Unknown History meclizine 25 mg tablet 25 mg PO DAILY PRN Vertigo 1 0/21/24 09/10/25 Unknown History metoprolol succinate 100 mg 100 mg PO DAILY 06/19/24 0 05/09/25 Unknown History tablet,extended release 24 hr pantoprazole 20 mg tablet,delayed 40 mg PO QAM 4 05/09/25 Unknown History release zolpidem 5 mg tablet 10 mg PO BEDTIME PRN Insomni a 06/19/24 05/09/25 Unknown History oxycodone 15 mg tablet 15 mg PO Q6H PRN pain 05/09/25 Unknown History Exam Height,Weight and Vital Signs: Height 5 ft 3 in Weight 77.111 kg Last Vital Signs Temp 97.6 F 05/09/25 06:52 Pulse 81 05/09/25 06:52 Resp 15 05/09/25 06:52 BP 118/68 05/09/25 06:52 Pulse Ox 94 05/09/25 06:52 O2 Del Method Room Air 05/09/25 06:52 Airway Mallampati Class: II TM Dist: >3cm Neck ROM: Full Heart: rrr Lungs: cta Assessment and Plan Assessment Anesthesia Assessment: Anesthesia Plan Discussed and Chart Reviewed Final Anesthetic Review Family History of Problems with Anesthesia: No History of Problems with Anesthesia: No NPO: Yes ASA Class: II Final Preanesthetic Review: No Changes in Pt Med Stat, Meds/Allgs Chart Reviewed and Consent Obtained/Reviewed Patient Risk: Low Procedure Risk: Low Anesthetic Plan Anesthetic Plan: MAC: Disposition: Standard PACU
[2025-05-09 09:02] VITALS: BP 90/52; PULSE 74; RESP 16; TEMP 36.1; O2SAT 98
--- NOTE | 2025-05-09 09:05 | P.BOP_ITS ---
Brief Operative Note Date of Service: 05/09/25 Pre-op diagnosis: Screening Post-op diagnosis: other (Polyps) Procedure: Colonoscopy to the cecum and TI with cold snare polypectomy x 2 Surgeon: Barrett Stewart MD Anesthesia: MAC Was an Hide House Supervisor used for this Procedure?: No Estimated blood loss (mL): 2.0 Pathology: other (A. Transverse colon polyps) Condition: stable Disposition: PACU
[2025-05-09 09:17] VITALS: BP 102/60; PULSE 67; RESP 16; TEMP 36.6; O2SAT 100
--- NOTE | 2025-05-09 09:48 | OP_ITS ---
DATE OF SERVICE: 05/09/2025 SURGEON: Barrett Stewart MD INDICATIONS: The patient presents for evaluation of personal history of tubular adenomas of the colon and colorectal cancer screening. Full consent has been obtained from her for this, including risks of bleeding and perforation. PREOPERATIVE DIAGNOSIS: Colorectal cancer screening. POSTOPERATIVE DIAGNOSIS: PROCEDURE PERFORMED: Colonoscopy to the cecum and terminal ileum with cold snare polypectomy x2. ESTIMATED BLOOD LOSS: COMPLICATIONS: ANESTHESIA: Medication used, monitored anesthesia care. ASSISTANTS: SPECIMENS: POSTOPERATIVE DIAGNOSES: Colorectal cancer screening, colon polyps, diverticulosis, and internal hemorrhoids. DESCRIPTION OF PROCEDURE: The patient was placed in the left lateral decubitus position. The digital rectal exam revealed no abnormalities. The Olympus video pediatric colonoscope was entered into the rectum and advanced easily to the cecum. Once in the cecum, I did identify normal-appearing cecal pouch with appendiceal orifice and a normal appearing ileocecal valve. The terminal ileum was cannulated and appeared normal. The scope was withdrawn back in the colon. The entire cecum and ileocecal valve appeared normal although the ileocecal valve did have some appearance of a lipomatous valve as it was somewhat soft and yellowish. There was no overlying mucosal abnormality. The scope was then slowly withdrawn assessing all mucosal surfaces carefully. Preparation was excellent after her 2 day prep. In the transverse colon were 2 flat, approximately 8 mm polyps, both of which were removed by cold snare polypectomy and recovered by suction. The polypectomy sites appeared clean, without any sign of residual polyp nor significant bleeding. I did not visualize any other polyps, colitis, nor angiodysplasia. There was a mild amount of sigmoid diverticulosis. In the rectum, scope was retroflexed visualizing internal hemorrhoids, but no other pathology. The rectal mucosa appeared normal. The scope was straightened and withdrawn from the patient. She tolerated the procedure well and was returned to the recovery area in stable condition. IMPRESSION: 1. Colon polyps. 2. Diverticulosis. 3. Internal hemorrhoids. PLAN: The results of the pathology will be checked. I would recommend a repeat colonoscopy in 5 years for further surveillance. She was advised not to use any aspirin nor NSAIDs for 1 week. MD ARSEN Starr/DAISY / [id number] JUSTIN
== END 2025-05-09 09:36 | disposition home or self-care (01) ==
PROVIDERS: PCP Nurse Practitioner; Visit Provider Internal Medicine
PROC: 0DJD8ZZ Inspection of Lower Intestinal Tract, Via Natural or Artificial Opening Endoscopic (ICD-10-PCS; CPT 45378; principal; 2025-05-09 07:30)
DX: Z12.11 Encounter for screening for malignant neoplasm of colon (principal); D12.3 Benign neoplasm of transverse colon; K57.30 Diverticulosis of large intestine without perforation or abscess without bleeding; K64.8 Other hemorrhoids; Z86.0101 Personal history of adenomatous and serrated colon polyps; J45.909 Unspecified asthma, uncomplicated; Z79.899 Other long term (current) drug therapy
CPT/HCPCS: 45385; 88305; J2704

== ENCOUNTER 2025-07-25 14:16 | Outpatient (AMB) | payer MEDICARE, MEDICAID, SELFPAY ==
--- NOTE | 2025-07-25 14:21 | MHC.OFFVIS ---
Intake Visit Reasons: [facility] Allergies No Known Allergies Allergy (Verified 07/25/25 14:25) Medication List - Last Reconciled 07/25/25 by Tala Kaufman CNP albuterol sulfate 90 mcg/actuation inhalation Q4H PRN amitriptyline 50 mg PO BEDTIME cyclobenzaprine 5 mg PO BID PRN dicyclomine 10 - 20 mg PO TID PRN estradiol 0.01%(0.1mg/gram) vaginal fluoxetine 40 mg PO DAILY fluticasone propionate 50 mcg/actuation 2 sprays intranasal DAILY ibuprofen 800 mg PO Q8H PRN loperamide (Imodium A-D) 2 mg PO Q4-6H PRN lorazepam 0.5 mg PO DAILY PRN meclizine 25 mg PO DAILY PRN metoprolol succinate ER 50 mg PO DAILY oxybutynin chloride 5 mg PO BID oxycodone 15 mg PO Q6H PRN pantoprazole 40 mg PO QAM vibegron (Gemtesa) 75 mg PO DAILY zolpidem 10 mg PO BEDTIME PRN HPI Comments Details: She was doing okay. Headaches were about the same, happening about 2-3x/week. Headaches are mostly left parietal. She still has some right neck pain that started around 10/2023 and occasional stiffness. She was taking ibuprofen as needed. She tried meloxicam in the past which also helped. She was asking if lidocaine patches could be ordered as she has has helped in the past. She was planning for CTS release at [facility] in the near future. In the past had chest tightness, electricity in shoulders and arms, and some left scalp headache with elevated blood pressure. Around 04/06/2020, she developed pain over right eye and behind right eye which comes and goes, sometimes stabbing severe pain. There is pressure. Nausea at times, but no significant photophobia, sonophobia, or vomiting. Sometimes feels lightheaded and dizzy. [facility] Medical History (Updated 07/25/25 @ 14:23 by Tala Kaufman CNP) Tension headache Cervical spondylosis Back pain IBS (irritable bowel syndrome) Asthma Palpitations Vertigo GERD (gastroesophageal reflux disease) Hiatal hernia Migraine Tachycardia Arthritis Surgical History History of eyelid surgery History of throat surgery History of surgery on lower extremity H/O colonoscopy History of esophagogastroduodenoscopy (EGD) Social History Household Members Other:: lives alone Alcohol intake: never Patient Tobacco Use Status: Never used Tobacco Review of Systems Const Denies chills, Denies daytime sleepiness, Denies difficulty sleeping, Denies fatigue, Denies fever(s), Denies frequent falls, Reports headache(s), Denies increased appetite, Denies poor appetite, Denies snoring, Denies weakness, Denies weight gain and Denies weight loss Eyes Denies loss of vision ENT Denies vertigo, Reports dizziness, Reports headache(s) and Denies neck pain Card Denies chest pain at rest, Denies chest pain with activity, Denies syncope, Denies leg edema, Denies palpitations, Denies dyspnea and Denies dyspnea on exertion Resp Denies cough, Denies dyspnea, Denies dyspnea on exertion and Denies snoring GI Denies abdominal pain, Denies constipation, Denies heartburn, Denies diarrhea and Denies nausea Denies urinary frequency, Denies urinary incontinence and Denies urinary urgency Musc Denies abnormal gait, Denies back pain, Denies myalgias, Denies arthralgias, Denies neck pain, Denies numbness and Denies tingling Neuro Denies abnormal gait, Denies vertigo, Reports dizziness, Denies syncope, Denies frequent falls, Reports headache(s), Denies lack of coordination, Denies loss of vision, Denies memory loss, Denies numbness, Denies Other visual disturbances, Denies restless legs, Denies seizure-like activity, Denies tingling, Denies paresthesias, Denies tremor(s) and Denies weakness Psych Denies anxiety, Denies depression, Denies auditory hallucinations, Denies memory loss and Denies visual hallucinations Endo Denies fatigue and Denies palpitations Physical Exam Const Other: General Appearance:? normal, in no acute distress. Heart:? S1, S2 normal, no murmurs. Lungs:? clear anteriorly and posteriorly. Musculoskeletal:? normal. Extremities:? no edema. Psych:? alert, oriented, cognitive function intact, cooperative with exam. Neuro Other: Abnormal Neurological Findings:?R wrist splint. BUE weakness. Mental Status: alert and oriented X 3. Normal attention, orientation, memory, and affect. Cranial Nerves: Pupils are equal, round, and reactive to light. External ocular muscles are intact. Visual ovalle are full, no ptosis. Face is symmetrical, no facial weakness or droop. Facial sensations are normal. Tongue protrudes in midline. Palate elevates symmetrically. Shoulder shrugging is normal Motor Examination: As above, otherwise normal muscle tone, bulk and strength. No atrophy or fasciculations. No drift of the extended upper extremities. DTR 2+. Plantars are flexor. Sensory Exam: Normal light touch, temperature, pinprick, vibration, and joint-position sensations. Rhomberg sign is absent. Coordination: No ataxia. No titubation. Gait Exam: Within normal limits. Cerebellar Signs: [id number] is okay. Extrapyramidal System: No tremor, rigidity with normal facial expressions. No bradykinesia. No bradyphrenia. Normal arm swing and posture. No propulsion or retropulsion. Speech: Normal. Results Reviewed Results Reviewed: 05/09/20 CTA : There is a 1.5 mm infundibulum versus aneurysm at the right posterior communicating artery origin. Otherwise unremarkable CTA of the head. 07/19/22 CTA shows no change in 1.5mm infundibular dilatation of right PCOM. MRI C spine shows degen arthritic changes with no spinal stenosis of foraminal encroachment and no abnormal cord signal. Assessment & Plan Assessment & Plan (1) Tension headache: Code(s): G44.209 - Tension-type headache, unspecified, not intractable Category: Medical Plan: Continue amitriptyline 25mg 2 tablets at bedtime. (2) Cervical spondylosis: Code(s): M47.812 - Spondylosis without myelopathy or radiculopathy, cervical region Category: Medical Plan: She was prescribed meloxicam in the past which helped, however she was currently taking ibuprofen and meloxicam was not refilled as these are similiar medications and should not be taken together. She had tried lidocaine patches in the past which helped with pain and she was asking if prescription could be sent. Start lidocaine patch 4% 1 patch topically to affected area daily as needed for pain, remove after 12 hours, use/side effects reviewed. Follow up in 6 months or sooner as needed. (3) Aneurysm: Code(s): I72.9 - Aneurysm of unspecified site Category: Medical Plan . Medications: New lidocaine 4% 1 patch topical DAILY PRN 30 ea 5RF pain 30 days amitriptyline 50 mg (2 x 25 mg) PO BEDTIME 180 tabs 1RF 90 days Coding Level of Care Code Est Pt Level 4 (60156) Diagnoses Tension headache G44.209 Cervical spondylosis M47.812 Aneurysm I72.9
--- OUTSIDE RECORDS SUMMARY | 2025-07-25 17:12 | XMS_ITS | Encounter Summary ---
Author Organization [email or web address] Address [address] [place] [address] Care Team Providers Care Kettle Firer Name Role Phone Unavailable Primary Care Provider Unavailabl e Encounter Details Date Type Department Care Team (Latest Contact Info) Description 11/07/2021 Abstract [facility] CONVERSIONS Dental, Provider, DDS Social History Tobacco [...] Care Team (Late st Contact Info) Description 01/08/2026 2:15 PM EDT Office Visit [facility] [address] [place] [address] Alex Sadler documented as of this encounter Visit Diagnoses Not on filedocumented in this encounter
--- OUTSIDE RECORDS SUMMARY | 2025-07-25 17:12 | XMS_ITS | Continuity of Care Document ---
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 Plan of Treatment Reminders Order Date Submit Date Provider Last Modified By Organization Details Last Modified Time Details Appointments None recorded. Lab bacterial vaginosis + vaginitis panel, vaginal 2024 025 [email or web address] [facility], [address] [place] [address], [id number], 13:51:23 culture, urine 2024 025 ATHENAFAX [facility], [address] [place] [address], [id number], 14:42:06 urinalysi s, complete 2024 025 [email or web address] [facility], [address] [place] [address], [id number], 14:41:02 CT + NG DNA, PCR, urine 2024 025 ATHENAFAX [facility], [address] [place] [address], [id number], 14:44:17 Referral None recorded. Procedures None recorded. Surgeries None recorded. Imaging None recorded. Medication Orders None recorded. Patient TargetsNo targets recorded. Patient Instructions Encounter Date Encounter Id Patient Instructions Last Modified By Organization Details Last Modified Time 06/28/2025 [id number] F/U w/PCP and/or GROUNDSKEEPER SUPERVISOR for PAP [email or web address] Not available 06/28/2025 13:50:36 Reason for Referral None Reported. Results Created Date Observation Date Name Description Value Unit Range Abnormal Flag Note LastModifiedBy Organization Detail LastModifiedTime 06/28/2006/28/2025 URINA LYSIS WITH REFLE X MICRO SCOPI C specific gravity urine 1.020 1.003- 1.030 Not Available [facility] [address] [place], [id number], 06/28/2025 18:30:56 06/28/2006/28/2025 URINA LYSIS WITH REFLE X MICRO SCOPI C pH, urine 5.5 pH 5.0-8. 0 Not Available [facility] [address] [place], [address], 06/28/2025 18:30:56 06/28/2006/28/2025 URINA LYSIS WITH REFLE X MICRO SCOPI C leukocytes, urine Negati ve negati ve Not Available [facility] [address] [place] [address], [id number], 06/28/2025 18:30:56 06/28/20 25 06/28/2025 URINA LYSIS WITH REFLE X MICRO SCOPI C nitrite, urine Negati ve negati ve Not Available [facility] [address] [place], [address], 06/28/2025 18:30:56 06/28/20 25 06/28/2025 URINA LYSIS WITH REFLE X MICRO SCOPI C protein, urine Negati ve mg/dL <=trac e Not Available [facility] [address] [place] [address], [id number], 06/28/2025 18:30:56 06/28/2006/28/2025 URINA LYSIS WITH REFLE X MICRO SCOPI C glucose, urine Negati ve mg/dL negati ve Not Available [facility] [address] [place] [address], [id number], 06/28/2025 18:30:56 06/28/20 25 06/28/2025 URINA LYSIS WITH REFLE X MICRO SCOPI C ketones, urine Negati ve mg/dL negati ve Not Available [facility] [address] [place], [address], 06/28/2025 18:30:56 06/28/2006/28/2025 URINA LYSIS WITH REFLE X MICRO SCOPI C urobilinogen , urine 0.2 mg/dL 0.2-1. 0 Not Available [facility] [address] [place] [address], [id number], 06/28/2025 18:30:56 06/28/2006/28/2025 URINA LYSIS WITH REFLE X MICRO SCOPI C bilirubin, urine Negati ve negati ve Not Available [facility] [address] [place] [address], [id number], 06/28/2025 18:30:56 06/28/2006/28/2025 URINA LYSIS WITH REFLE X MICRO SCOPI C blood, urine Negati ve negati ve Not Available [facility] [address] [place] [address], [id number], 06/28/2025 18:30:56 06/28/2006/28/2025 URINA LYSIS WITH REFLE X MICRO SCOPI C note See Report [facility], [address] [facility], Sofiya shrestha d, [place] [id number] Not Available [facility] [address] [place] [address], [id number], 06/28/2025 18:30:56 06/28/2006/28/2025 CHLAM YDIA TRACH OMATI S AND NEISS ERIA GONOR RHOEA E MOLEC ULAR STUDY .note See Note Origi nal Order ing Provi papo: SAMUEL FLYNN BARTOLO [facility] - Labor atory - [address] [facility], Sofiya garcia, [place] [id number] Not Available [facility] [address] [place] [address], [id number], 06/29/2025 09:12:51 06/28/2006/28/2025 CHLAM YDIA TRACH OMATI S AND NEISS ERIA GONOR RHOEA E MOLEC ULAR STUDY neisseria gonorrhoeae PCR Negati ve negati ve Not Available [facility] [address] [place] [address], [id number], 06/29/2025 09:12:51 06/28/2006/28/2025 CHLAM YDIA TRACH OMATI S AND NEISS ERIA GONOR RHOEA E MOLEC ULAR STUDY chlamydia trachomatis PCR Negati ve negati ve Not Available [facility] [address] [place] [address], [phone], 06/29/2025 09:12:51 06/28/2006/28/2025 VAGIN ITIS PATHO GENS MOLEC ULAR STUDY .note See Note Origi nal Order ing Provi papo: SAMUEL FLYNN BARTOLO [facility] - Labor atory - [address] [place] [address], Sofiya garcia, [place] [id number] Not Available [facility] [address] [place] [address], [id number], 06/29/2025 11:19:48 06/28/20 25 06/28/2025 VAGIN ITIS PATHO GENS MOLEC ULAR STUDY trichomonas vaginalis Negati ve negati ve Not Available [facility] [address] [place] [address], [id number], 06/29/2025 11:19:48 06/28/20 25 06/28/2025 VAGIN ITIS PATHO GENS MOLEC ULAR STUDY gardnerella vaginalis Negati ve negati ve Not Available [facility] [address] [place] [address], [id number], 06/29/2025 11:19:48 06/28/20 25 06/28/2025 VAGIN ITIS PATHO GENS MOLEC ULAR STUDY tad species Negati ve negati ve Not Available [facility] [address] [place] [address], [id number], 06/29/2025 11:19:48 06/28/2006/28/2025 CULTU RE URINE .note See Note Origi nal Order ing Provi papo: SAMUEL FLYNN BARTOLO [facility] - Labor atory - [address] [facility], Sprin gfiel d, [place] [phone] Not Available [facility] [address] [place], [address], 06/29/2025 13:34:42 06/28/20 25 06/28/2025 CULTU RE URINE culture, urine No growth Not Available [facility] [address] [place], [address], 06/29/2025 13:34:42 Result Notes None recorded. Problems Name Problem SNOMED Code Status Onset Date Resolution Date Notes Provider Name and Address Organization Details Recorded Time Irritable bowel syndrome with diarrhea 716040811 Active 2022 Sujata Davidson MD [address] [place] [address], [phone], MAGNOLIA DAVIDSON MD [facility] 3 17:27:33 Steatotic liver disease 101292570 Active 2023 Sujata Davidson MD [address] [place] [address], [phone], MAGNOLIA DAVIDSON MD [facility] 4 14:43:29 History of herpes zoster [id number] 8 Active 2023 Sujata Davidson MD [address] [place] [address], [phone], MAGNOLIA DAVIDSON MD [facility] 4 13:23:07 Problem Notes None recorded. Medical Equipment None Reported. Allergies No known drug allergies Medications Name Sig Start Date Stop Date Status Note LastModified by Organization Details LastModified Time fluoxetin e 40 mg capsule TOME 1 C PSULA POR V A ORAL TODOS LOS D active Not Available Not Available No t Available tretinoin 0.1 % topical cream APLIQUE AL BENTLEY AFECTADA AL ACOSTARS E active Not Available Not Available No t Available amoxicill in 500 mg capsule TAKE 1 CAPSULE BY MOUTH TWICE A DAY FOR 7 DAYS, FOR UTI. active Not Available Not Available No t Available Anti-Diar rheal (loperami de) 2 mg tablet TAKE 1-2 TABLETS NEEDED FOR DIARRHEA ORALLY EVERY 4-6 HOURS NEEDED FOR DIARRHEA 30 DAYS active Not Available Not Available No t Available fluconazo le 100 mg tablet TAKE 1 TABLET EVERY DAY BY ORAL ROUTE FOR 7 DAYS, FOR FUNGAL. active Not Available Not Available No t Available cyanocoba ena (vit B-12) ER 1,000 mcg tablet,ex tended release 1000 mcg Quantity : 30; Duration : 30; 3 refill(s ) 02/19 completed Frequenc y: qd; Duration : 30; VACCINE_ IND: no; SU_FULL_ NAME: Sujata munson; Not Available Not Available Not Available clonidine HCl 0.1 mg tablet TAB 0.1MG; Quantity : 60; Duration : 30; 0 refill(s ) 03/17 completed Duration : 30; VACCINE_ IND: no; Not Available Not Available Not Available omega-3 fatty acids 1,000 mg capsule TOME KATINA C PSULA TODOS LOS D active Not Available Not Available No t Available loperamid e 2 mg capsule TAKE 1-2 CAPSULES ORALLY EVERY 6 HOURS IF NEEDED FOR DIARRHEA FOR 30 DAYS active Not Available Not Available No t Available ibuprofen 800 mg tablet TOME 1 TABLETA POR VIA ORAL CADA OCHO HORAS CUANDO SI NECESARI O active Not Available Not Available No t Available fluconazo le 150 mg tablet TAKE 1 TABLET IN 1 DOSE,MAY REPEAT DOSE IN 1 WEEK 07/04 completed Duration : 7; VACCINE_ IND: no; Not Available Not Available Not Available metoprolo l succinate ER 50 mg tablet,ex tended release 24 hr TOME 1 TABLETA POR V A ORAL TODOS LOS D active Not Available Not Available No t Available tretinoin 0.025 % topical cream APPLY AT BEDTIME 3 TIMES WEEKLY, THEN INCREASE TO NIGHTLY IF TOLERATE D active Not Available Not Available No t Available meloxicam 15 mg tablet TOME 1 TABLETA POR VIA ORAL TODOS [place] DESPUES DE LAS COMIDAS 30 active Not Available Not Available No t Available ondansetr on HCl 4 mg tablet TOME KATINA TABLETA LARRY VECES AL STEPHANIE CUANDO SEA NECESARI O active Not Available Not Available No t Available prednison e 20 mg tablet TOME DOS TABLETAS POR V A ORAL TODOS LOS D active Not Available Not Available No t Available sumatript an 50 mg tablet PLEASE SEE ATTACHED FOR DETAILED DIRECTIO NS active Not Available Not Available No t Available metronida zole 500 mg tablet TOME KATINA TABLETA POR VIA ORAL CADA OCHO HORAS FOR 10 DAYS 03/17 completed Duration : 10; VACCINE_ IND: no; Not Available Not Available Not Available sulfameth oxazole 800 mg-trimet hoprim 160 mg tablet TOME 1 TABLETA POR V A ORAL CADA 12 HORAS SEG N LO INDICADO POR 5 D active Not Available Not Available No t Available oxycodone 15 mg tablet TOME 1 TABLETA POR V A ORAL CADA 6 HORAS CUANDO SEA NECESARI O PARA EL DOLOR active Not Available Not Available No t Available pantopraz ole 20 mg tablet,de layed release SARI KATINA PASTILLA POR BOCA TODAS LAS MANANAS active Not Available Not Available No t Available meloxicam 7.5 mg tablet TK 1 T PO BID 12/21 completed Duration : 30; VACCINE_ IND: no; Not Available Not Available Not Available amoxicill in 875 mg tablet TOME 1 TABLETA POR V A ORAL DOS VECES AL D A POR 7 D active Not Available Not Available No t Available Vitamins B Complex tablet TOME KATINA TABLETA TODOS LOS D SEG N LO INDICADO active Not Available Not Available No t Available Vitamin D3 10 mcg (400 unit) tablet 10 mcg Quantity : 60; Duration : 30; 2 refill(s ) 06/13 completed Frequenc y: bid; Duration : 30; VACCINE_ IND: no; SU_FULL_ NAME: Sujata Daniellebruno munson; Not Available Not Available Not Available famotidin e 20 mg tablet TOME KATINA TABLETA POR VIA ORAL DOS VECES AL STEPHANIE CUANDO SEA NECESARI O 03/17 completed Duration : 30; VACCINE_ IND: no; Not Available Not Available Not Available amitripty line 25 mg tablet TOME DOS TABLETAS POR V A ORAL CADA NOCHE AL ACOSTARS E active Not Available Not Available No t Available magnesium oxide 400 mg (241.3 mg magnesium ) tablet TOME 1 TABLETA POR VIA ORAL TODOS [place] active Not Available Not Available No t Available lorazepam 0.5 mg tablet TOME 1 TABLETA POR V A ORAL DOS VECES AL D A CUANDO SEA NECESARI O PARA LA ANSIEDAD active Not Available Not Available No t Available dicyclomi ne 20 mg tablet TOME KATINA TABLETA POR VIA ORAL TODOS [place] NEEDED FOR IBS PAIN active Not Available Not Available No t Available meclizine 25 mg tablet TOME 1 TABLETA POR V A ORAL DOS VECES AL D A CUANDO SEA NECESARI O active Not Available Not Available No t Available pantopraz ole 40 mg tablet,de layed release TAB 40MG; Quantity : 90; Duration : 90; 0 refill(s ) 11/22 completed Duration : 90; VACCINE_ IND: no; Not Available Not Available Not Available erythromy xavier 5 mg/gram (0.5 %) eye ointment APPLY 1 A SMALL AMOUNT ON EYELID FOUR TIMES A DAY APPLY TO INCISION SITES FOR 1 WEEK active Not Available Not Available No t Available ranitidin e 150 mg tablet TAB 150MG; Quantity : 30; Duration : 30; 0 refill(s ) 11/22 completed Duration : 30; VACCINE_ IND: no; Not Available Not Available Not Available lidocaine 5 % topical patch 5% Quantity : 90; Duration : 18; 0 refill(s ) 12/21 completed Duration : 18; VACCINE_ IND: no; Not Available Not Available Not Available fluoxetin e 10 mg capsule TOME KATINA CAPSULA POR VIA ORAL TODOS LOS [place] EN [facility] WITH 20MG CAPSULES 12/21 completed Duration : 30; VACCINE_ IND: no; Not Available Not Available Not Available diclofena c potassium 50 mg tablet POTASSIU M 50MG TABLETS; Quantity : 90; Duration : 30; 0 refill(s ) 12/21 completed Duration : 30; VACCINE_ IND: no; Not Available Not Available Not Available docusate sodium 100 mg capsule TOME KATINA CAPSULA POR VIA ORAL DOS VECES AL STEPHANIE SI NECESARI O active Not Available Not Available No t Available cephalexi n 500 mg tablet TOME 1 TABLETA POR V A ORAL DOS VECES AL D A POR 7 D active Not Available Not Available No t Available hydroxyzi ne HCl 25 mg tablet HCL TAB 25MG; Quantity : 180; Duration : 90; 0 refill(s ) 2020 active Duration : 90; VACCINE_ IND: no; Not Available Not Available Not Available zolpidem 5 mg tablet TOME 1 TABLETA POR V A ORAL TODOS LOS D AL ACOSTARS E CUANDO SEA NECESARI O active Not Available Not Available No t Available gabapenti n 100 mg capsule TK 1 TO 3 CS PO QHS 03/17 completed Duration : 30; VACCINE_ IND: no; Not Available Not Available Not Available ergocalci ferol (vitamin D2) 1,250 mcg (50,000 unit) capsule TOME KATINA CAPSULA POR VIA ORAL SEMANALM ENTE POR 90 MOBLEY active Not Available Not Available No t Available ibuprofen 600 mg tablet TOME KATINA TABLETA POR V A ORAL DOS VECES AL D A CON ALIMENTO CUANDO SEA NECESARI O CON COMIDA active Not Available Not Available No t Available estradiol 0.01% (0.1 mg/gram) vaginal cream PLACE A PEA-SIZE AMOUNT (0.5 GRAM) INSIDE VAGINA NIGHTLY FOR 2 WEEKS, THEN TWICE A WEEK AT NIGHT active Not Available Not Available No t Available albuterol sulfate HFA 90 mcg/actua tion aerosol inhaler TOME DOS INHALACI ONES CADA CUATRO HORAS CUANDO SI NECESARI O active Not Available Not Available No t Available oxybutyni n chloride 5 mg tablet TOME 1 TABLETA POR VIA ORAL DOS VECES AL STEPHANIE active Not Available Not Available No t Available fluoxetin e 20 mg capsule 20 Quantity : 30; Duration : 30; 0 refill(s ) 03/17 completed Duration : 30; VACCINE_ IND: no; Not Available Not Available Not Available fluticaso ne propionat e 50 mcg/actua tion nasal spray,ld pension PUMP 2 SPRAYS INTO CADA VENTANIL LA DE LA NARIZ TODOS LOS MOLBEY active Not Available Not Available No t Available dicyclomi ne 10 mg capsule TAKE 1 TO 2 CAPSULES BY MOUTH 3 TIMES A DAY BEFORE BREAKFAS T, LUNCH, & DINNER FOR CRAMPS & BLOATING active Not Available Not Available No t Available loratadin e 10 mg tablet TOME KATINA TABLETA TODOS LOS [place]OB[place] POR 90 MOBLEY active Not Available Not Available No t Available vitamin B complex capsule TOME 1 C PSULA POR V A ORAL A DIARIO DIRECTED active Not Available Not Available No t Available bacitraci n-polymyx in B 500 unit-10,0 00 unit/gram eye ointment APPLY A SMALL AMOUNT INTO BOTH EYES 4 TIMES A DAY APPLY TO INCISION SITES ABOVE EYE BROWS FOR 1 WEEK active Not Available Not Available No t Available Laxative (bisacody l) 5 mg tablet,de layed release PLEASE SEE ATTACHED FOR DETAILED DIRECTIO NS active Not Available Not Available No t Available azithromy xavier 500 mg tablet TOME KATINA TABLETA POR V A ORAL TODOS [place] active Not Available Not Available No t Available Saline Nasal 0.65 % spray aerosol USE 1 SPRAY BY NASAL ROUTE CUANDO SEA NECESARI O FOR CONGESTI ON active Not Available Not Available No t Available cyclobenz aprine 5 mg tablet TOME KATINA TABLETA ORAL DOS VECES AL STEPHANIE CUANDO SI NECESARI O POR 90 MOBLEY active Not Available Not Available No t Available Premarin 0.625 mg/gram vaginal cream INSERT 1/2 A GRAM VAGINALL Y AL ACOSTARS E 2 TIMES A WEEK 12/21 completed Duration : 28; VACCINE_ IND: no; Not Available Not Available Not Available propafeno ne ER 225 mg capsule,e xtended release 12 hr TOME 1 C PSULA POR V A ORAL EVERY 12 HOURS FOR 30 DAYS active Not Available Not Available No t Available nitrofura ntoin monohydra te/macroc rystals 100 mg capsule TOME 1 C PSULA POR V A ORAL DOS VECES AL D A POR 7 D active Not Available Not Available No t Available lactulose 10 gram/15 mL oral solution TAKE 15 ML BY MOUTH ONCE DAILY CUANDO SEA NECESARI O active Not Available Not Available No t Available Lyrica 75 mg capsule TK ONE C PO BID 03/17 completed Duration : 28; VACCINE_ IND: no; Not Available Not Available Not Available cholecalc iferol (vitamin D3) 25 mcg (1,000 unit) tablet TOME KATINA TABLETA POR VIA ORAL TODOS LOS MOBLEY 03/17 completed Duration : 30; VACCINE_ IND: no; Not Available Not Available Not Available Fish Oil 300 mg-1,000 mg capsule SARI KATINA CAPSULA POR BOCA DIARIO POR 90 MOBLEY active Not Available Not Available No t Available Havrix (PF) 1,440 DIOGENES unit/mL intramusc ular suspensio n 1440 units/mL preserva tive free Quantity : 1; 1 refill(s ) 12/21 completed VACCINE_ IND: no; VACCINE_ NAME: Hep A, adult; SU_FULL_ NAME: Sujata munson; Not Available Not Available Not Available oxycodone 20 mg tablet TAB 20MG; Quantity : 90; Duration : 30; 0 refill(s ) 11/22 completed Duration : 30; VACCINE_ IND: no; Not Available Not Available Not Available diclofena c 1 % topical gel APPLY 1 GRAM TO AFFECTED AREAS 2-4 TIMES A DAY CUANDO SEA NECESARI O active Not Available Not Available No t Available vitamin E (dl, acetate) 180 mg (400 unit) capsule TOME 2 CAPSULAS POR VIA ORAL TODOS [place] active Not Available Not Available No t Available Flovent Diskus 100 mcg/actua tion powder for inhalatio n INAHLE 1 PUFF BY MOUTH 2 TIMES A DAY active Not Available Not Available No t Available Gavilax 17 gram/dose oral powder MIX & TAKE 1/2 BOTTLE BY MOUTH 2 DAYS BEFORE, AND TAKE 1 BOTTLE 1 DAY BEFORE COLONOSC OPY active Not Available Not Available No t Available magnesium 400 mg (as magnesium oxide) capsule TOME 1 C PSULA POR V A ORAL TODOS LOS D active Not Available Not Available No t Available vitamin E mixed 400 unit capsule Take 2 capsules every day by oral route for 30 days. 2024 active Not Available Not Available Not Avai lable Caltrate with Vitamin D3 600 mg-20 mcg (800 unit) tablet Take 1 tablet by oral route for 30 days. 2022 active Not Available Not Available Not Avai lable Arnuity Ellipta 100 mcg/actua tion powder for inhalatio n INAHLE 1 PUFF BY MOUTH EVERY A DAY active Not Available Not Available No t Available naloxone 4 mg/actuat ion nasal spray USE DIRECTED CUANDO SEA NECESARI O OVERDOSE active Not Available Not Available No t Available Gemtesa 75 mg tablet TAKE 1 TABLET BY MOUTH 1 TIME EACH DAY. active Not Available Not Available No t Available Flowflex COVID-19 Antigen Home Test kit USE DIRECTED ON PACKAGIN G active Not Available Not Available No t Available Vitals Date Recorded Body height Respiratory rate Body temperature Body mass index (BMI) Body weight Systolic And Diastolic Provider Name and Address Organization Details Last Updated DateTime 160.02 cm 94 /min 97.9 [degF] 31.2 kg/m2 45602.2 6 g 116/77 mm[Hg] Minna DAVIDSON MD [facility] 13:03:34 Social History None recorded. Functional Status None recorded. Mental Status None recorded. Family History Nothing Reported Notes:Relationship: Father: Cancer, other unspecified, Response Property: Yes; Relationship: Mother: Anxiety, Response Property: Yes; , Arthritis, Response Property: Yes; , Osteoporosis, Response Property: Yes; , Depression, Response Property: Yes; Relationship: Sister: Migraine Headaches, Response Property: Yes; Medical History Condition Response Anxiety Disorder Y Arthritis Y Fibromyalgia Y Depression Y Gynecological HistoryNo gynecological history recorded. Obstetrics History GPAL:G 0 P 0 0 0 0 Past Encounters Encounter ID Performer Location Encounter Start Date Encounter Closed Date Diagnosis/Indication Diagnosis SNOMED-CT Code Diagnosis ICD10 Code Diagnosis IMO Codes Diagnosis Note [id number] Suajta Davidson MD Main Office [address] [place] [phone] 06/28/2025 12:45:41 06/28/2025 13:46:51 Recurrent urinary tract infection 267007489 N39.0 E faecalis 01/2025s/p E coli UTI s.p Nitrofuran toin for 7 days x 2. 05/2023 and 06/2023 and 07/2023sta ble.s/p E coli UTI s.p Nitrofuran toin for 7 days x 2. 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 controlled , might lead to less infection recurrence and PAP smear; has scheduled mammo she might benefit from macrobid suppressio n tx to decrease frequency and severity of infections while GROUNDSKEEPER SUPERVISOR gets evaluated. no allergy antibiotic sto call if recurrence Vaginal discharge 230794 006 N89.8 50477 BD affirm collected by ptbacteria l/fungal swab obtained Health Concerns Section Related Observation LastModified by Organization Detai ls LastModified Time None Recorded Concern Status LastModified by Organization Details LastModified Time None Recorded Payers Encounter Date Sequence Insurance Name Policy Number Policy Jett Covered Member ID Jett Member ID Guarantor Name 06/28/2025 1 [place] B-[place]: [id number] Jannet Jeffrey Altman [id number] Jannet Jeffrey Altman 06/28/2025 2 [place] [facility] Jannet Jeffrey Altman [id number] Jannet Jeffrey Altman Notes Date Note Type Note Provider Name and Address Organization Details Recorded Time 06/28/2025 text/html ROS as noted in the HPI f/u UTI/ Irritable bowel syndrome/ dyspepsia/constipation treated for UTI w E coli on 05/2023 and 06/2023; 07/2023.Enterococcus U/C; on/off dysuria/discomfort.Rep orts she still has intermittent dysuria; denies frequency or hematuriaDenies fever/chillsshe reports recurrence of UTI sx post tx.Previously reported urine incontinence. no back pain.no n/v/d.Denies vag discharge or itching, but is concernedbut will F/U w/PCP and/or GROUNDSKEEPER SUPERVISOR; is scheduled for mammogram, and will requests PAP testing as well. IBS: on dicyclomine prn which helps w abd pain/spasm sx. hx fatty liver; no DM. vit E use. 02/2025 hyperlipidemia; CMP unremarkable; CBC nl; 01/2025 U/C enterococcus: no susceptibilities 05/2024 u/a and u/c neg; BD affirm neg; SGOT 11; SGPT=17;electrolytes nl; treponemal ab neg; iAAH=370; CBC nl; abd u/s 11/2024 cholelithiasis; no cholecystitis; GB adenomyomatosis. abd U/s 2022 ok including kidney w no stones nor abnormalities. 07/2023 U/s abd w fatty liver, and no mention of kidney stones. Sujata Davidson MD [address] [place] [address], [phone], [place] - SUJATA DAVIDSON MD [facility] 06/28/2025 17:19:18 OBGyn Episode No OBEpisode recorded.
--- OUTSIDE RECORDS SUMMARY | 2025-07-25 17:12 | XMS_ITS | Clinical Summary ---
Author Organization [email or web address] Address [address] [place] [address] [address] [place] [address] Care Team Providers Care Barrel Filler Name Role Phone Unavailable Primary Care Provider [...] 3 Active ergocalciferol (Vitamin D2) 1.25 MG (38731 UT) capsule Take 1 capsule by mouth [...] AL ACOSTARSE CUANDO SEA NECESARIO 3 Active Calcium Carb-Cholecalci ferol (Caltrate 600+D3) 600-20 MG-MCG tablet Take 1 tablet by oral route for 30 days. 3 Active cyclobenzaprine (Flexeril) 5 MG tablet TOME KATINA TABLETA ORAL DOS VECES AL STEPHANIE CUANDO SI NECESARIO POR 90 [place] 2 Active hydrOXYzine HCl (Atarax) 25 MG tablet HCL TAB 25MG; Quantity: 180; Duration: 90; 0 refill(s) 1 Active meloxicam (Mobic) 15 MG tablet TOME 1 TABLETA POR VIA ORAL TODOS LOS [place] DESPUES DE LAS COMIDAS 30 Active oxybutynin (Ditropan) 5 MG tablet TOME 1 TABLETA POR VIA ORAL DOS VECES AL STEPHANIE Active SUMAtriptan (Imitrex) 50 MG tablet PLEASE SEE ATTACHED FOR DETAILED DIRECTIONS 4 Active Encounters Date Type Department Care Team Description 07/06/2025 2:15 PM EST Office Visit [facility] [address] [place] [address] Alex Sadler Dental calculus (Primary Dx) from Last 3 Months Social History Tobacco Use Types Packs/Day Years [...] Sign Reading Time Taken Comments Blood Pressure 104/64 07/06/2025 2:12 PM EST Pulse 66 07/06/2025 2:12 PM EST Temperature - - Respiratory Rate - - Oxygen Saturation - - Inhaled Oxygen Concentration - - Weight - - Height - - Body Mass Index - - Plan of Treatment Upcoming Encounters Date Type Department Care Team (Late st Contact Info) Description 01/08/2026 2:15 PM EDT Office Visit [facility] [address] [place] [address] Alex Sadler Health Maintenance Due Date Last [...] - Risk 3-dose series) 08/25/2006 03/25/2006, 02/23/2006 RSV Patients and Patients Aged 60 years or older (1 - Risk 50-74 years 1-dose series) 2014 Zoster Vaccines (1 of 2) 2014 Pneumococcal Vaccine: 50+ Years (2 of 2 - PCV) 07/04/2022 07/04/2021 COVID-19 Vaccine (3 - season) 2025 01/19/2021, 12/22/2020 Influenza Vaccine (#1) 2025 Mammogram 06/03/2025 06/03/2023 Dental X-Ray: Bitewings 01/02/2026 01/02/20 25, 09/16/2023, 05/04/2023, Additional history exists Dental Oral Exam 01/04/2026 07/06/2025, 12/2024, 05/04/2023, Additional history exists Dental Prophylaxis 01/04/2026 07/06/2025, 0 01/01/2025, 05/04/2023, Additional history exists Tobacco Screening 07/06/2026 07/06/2025 Dental X-Ray: Full Mouth 07/01/2027 06/30/2024, 07/30 [...] Procedure Name Priority Date/Time Associated Diagnosis Comments ORAL HYGIENE INSTRUCTIONS Routine 2024 2:15 PM EST PROPHYLAXIS - ADULT Routine 07/06/2025 2 :15 PM EST CASE PRESENTATION, DETAILED AND EXTENSIVE TREATMENT PLANNING Routine 07/06/2025 2:15 PM EST PERIODIC ORAL EVALUATION - ESTABLISHED PATIENT Routine 07/06/2025 2:15 PM EST BITEWINGS - 4 RADIOGRAPHIC IMAGES Routine 01/01/2025 3:00 PM EDT PANORAMIC RADIOGRAPHIC IMAGE Routine 06/30/2024 1:30 PM EDT from Last 3 Months or Most Recently Relevant to Health Maintenance Insurance [facility]AL-[facility] MEDICAID STAND ADULT
--- OUTSIDE RECORDS SUMMARY | 2025-07-25 17:12 | XMS_ITS | Data Portability ---
Author Organization MAGNOLIA MCFARLAND MD [facility], Main Office Address [address] [place] [address] Care Team Providers Care Dining Manager Name Role Phone ELENA ROSAS Primary Care Provider Assessment Encounter Date Assessment Date Assessment LastModified by Organization Details LastModified Time 11/22/2023 11/22/2023 Telehealth. Audio 18 min. pt home in [place]. [facility]. [email or web address] Not available 11/22/2023 14:23:25 Plan of Treatment Reminders Order Date Submit Date Provider Last Modified By Organization Details Last Modified Time Details Appointments None recorded. Lab bacterial vaginosis + vaginitis panel, vaginal 2024 025 [email or web address] [facility], [address] [place] [address], 60792, 13:51:23 culture, urine 2024 025 [employer] [facility], [address] [place] [address], 73647, 14:42:06 urinalysi s, complete 2024 025 [email or web address], [address] [place] [address], 88519, 14:41:02 CT + NG DNA, PCR, urine 2024 025 ATHENAFAX [facility], [address] [place] [address], 86969, 14:44:17 bacterial vaginosis + vaginitis panel, vaginal 2024 025 [facility], [address] [place] [address], 50400, 5 16:56:47 culture, aerobic + anaerobic 2024 025 [employer] [facility], [address] [place] [address], 38086, 16:56:47 culture, urine 2024 025 [employer] [facility], [address] [place] [address], 67775, 5 16:56:47 urinalysi s, complete 2024 025 [facility], [address] [place] [address], 82186, 16:56:47 hepatitis C liver status biomarker panel, serum 2024 025 [facility], [address] [place] [address], 73681, 13:11:11 creatinin e w/ estimated GFR (eGFR), serum or plasma 2024 025 [facility], [address] [place] [address], 57061, 5 13:11:11 hepatitis C virus Ab, serum 2024 025 [facility], [address] [place] [address], 54821, 13:11:11 RPR (rapid plasma reagin), serum 2024 025 [facility], [address] [place] [address], 36970, 5 13:11:11 bacterial vaginosis + vaginitis panel, vaginal 2024 025 [facility], [address] [place] [address], 02384, 5 13:11:11 CBC 2024 025 [employer] [facility], [address] [place] [address], 06240, 5 13:11:11 CMP, serum or plasma 2024 025 [employer] [facility], [address] [place] [address], 80115, 5 13:11:11 lipid panel, serum 2024 025 [employer] [facility], [address] [place] [address], 02433, 5 13:11:11 TSH, serum or plasma 2024 025 [facility], [address] [place] [address], 07002, 5 13:11:11 culture, urine 2024 025 [facility], [address] [place] [address], 46323, 5 09:23:05 urinalysi s, complete 2024 025 [facility], [address] [place] [address], 45744, 5 09:20:36 CBC w/ diff 2023 024 [facility], [address] [place] [address], 78634, 4 08:39:05 electroly linda panel, blood 2023 024 [facility], [address] [place] [address], 66345, 4 08:39:05 ALT (alanine aminotran sferase), serum or plasma 2023 024 [facility], [address] [place] [address], 60575, 4 08:39:05 AST/SGOT (aspartat e aminotran sferase), serum or plasma 2023 024 [facility], [address] [place] [address], 90588, 4 08:39:05 creatinin e w/ estimated GFR (eGFR), serum or plasma 2023 024 [facility], [address] [place] [address], 23578, 4 08:39:06 RPR (rapid plasma reagin), serum 2023 [facility], [address] [place] [address], 69832, 4 08:39:06 bacterial vaginosis + vaginitis panel, vaginal 2023 024 [facility], [address] [place] [address], 93660, 4 08:39:06 culture, urine 2023 024 [facility], [address] [place] [address], 92849, 4 01:06:33 urinalysi s, complete 2023 024 [facility], [address] [place] [address], 76527, 4 08:39:06 Referral None recorded. Procedures None recorded. Surgeries None recorded. Imaging None recorded. Medication Orders fluconazo le 100 mg tablet 2024 025 cmartorell [id number], [address] [place], [address], 5 16:56:47 amoxicill in 500 mg capsule 2024 025 [id number], [address] [place], [address], 16:57:13 vitamin E mixed 400 unit capsule 2024 025 [facility]FALI [id number], [address] [place], [address], 17:00:21 Patient TargetsNo targets recorded. Patient Instructions Encounter Date Encounter Id Patient Instructions Last Modified By Organization Details Last Modified Time 06/28/2025 [id number] F/U w/PCP and/or SPECIAL SERVICES DIRECTOR for PAP [email or web address] Not available 06/28/2025 13:50:36 Reason for Referral None Reported. Results Created Date Observation Date Name Description Value Unit Range Abnormal Flag Note LastModifiedBy Organization Detail LastModifiedTime 06/02/2006/02/2024 CBC WITH AUTO DIFF WBC 9.4 x10-3 /uL 4.8-10 .8 Not Available [facility] [address] [place], [address], 06/02/2024 15:33:38 06/02/2006/02/2024 CBC WITH AUTO DIFF RBC 4.1 x10-6 /uL 3.8-4. 8 Not Available [facility] [address] [place], [address], 06/02/2024 15:33:38 06/02/20 24 06/02/2024 CBC WITH AUTO DIFF hemoglobin 12.2 g/dL 11.5-1 6.0 Not Available [facility] [address] [place], [address], 06/02/2024 15:33:38 06/02/2006/02/2024 CBC WITH AUTO DIFF hematocrit 37.5 % 35-47 Not Available [facility] [address] [place], [address], 06/02/2024 15:33:38 06/02/20 24 06/02/2024 CBC WITH AUTO DIFF MCV 92.4 fL 79-98 Not Available [facility] [address] [place], [address], 06/02/2024 15:33:38 06/02/20 24 06/02/2024 CBC WITH AUTO DIFF MCH 30.0 pg 27-32 Not Available [facility] [address] [place], [address], 06/02/2024 15:33:38 06/02/20 24 06/02/2024 CBC WITH AUTO DIFF MCHC 32.5 g/dL 32-37 Not Available [facility] [address] [place], [address], 06/02/2024 15:33:38 06/02/20 24 06/02/2024 CBC WITH AUTO DIFF RDW 13.0 % 11-15 Not Available [facility] [address] [place] [address], 57356, 06/02/2024 15:33:38 06/02/20 24 06/02/2024 CBC WITH AUTO DIFF plt count 375 x10-3 /uL 130-40 0 Not Available [facility] [address] [place] [address], 43971, 06/02/2024 15:33:38 06/02/20 24 06/02/2024 CBC WITH AUTO DIFF mean platelet volume 9.3 fL 7-11 Not Available [facility] [address] [place] [address], 81329, 06/02/2024 15:33:38 06/02/20 24 06/02/2024 CBC WITH AUTO DIFF NRBC % auto 0.0 % <1 Not Available [facility] [address] [place], [address], 06/02/2024 15:33:38 06/02/20 24 06/02/2024 CBC WITH AUTO DIFF neut % 63.0 % Not Available [facility] [address] [place] [address], 82847, 06/02/2024 15:33:38 06/02/20 24 06/02/2024 CBC WITH AUTO DIFF lymph % 28.0 % Not Available [facility] [address] [place] [address], 52143, 06/02/2024 15:33:38 06/02/20 24 06/02/2024 CBC WITH AUTO DIFF mono % 6.9 % Not Available [facility] [address] [place], [address], 06/02/2024 15:33:38 06/02/20 24 06/02/2024 CBC WITH AUTO DIFF eos % 1.5 % Not Available [facility] [address] [place], [address], 06/02/2024 15:33:38 06/02/20 24 06/02/2024 CBC WITH AUTO DIFF baso % 0.3 % Not Available [facility] [address] [place], [address], 06/02/2024 15:33:38 06/02/20 24 06/02/2024 CBC WITH AUTO DIFF immature granulocytes % 0.3 % Not Available [facility] [address] [place], [address], 06/02/2024 15:33:38 06/02/20 24 06/02/2024 CBC WITH AUTO DIFF NRBC # auto 0.00 x10-3 /uL <0.1 Not Available [facility] [address] [place], [address], 06/02/2024 15:33:38 06/02/20 24 06/02/2024 CBC WITH AUTO DIFF absolute neut 5.91 x10-3 /uL 1.5-7. 0 Not Available [facility] [address] [place], [address], 06/02/2024 15:33:38 06/02/20 24 06/02/2024 CBC WITH AUTO DIFF lymph # 2.63 x10-3 /uL 1-5.0 Not Available [facility] [address] [place], [address], 06/02/2024 15:33:38 06/02/20 24 06/02/2024 CBC WITH AUTO DIFF mono # 0.65 x10-3 /uL 0.2-1. 0 Not Available [facility] [address] [facility] [place], [address], 06/02/2024 15:33:38 06/02/2006/02/2024 CBC WITH AUTO DIFF eos # 0.14 x10-3 /uL 0-0.5 Not Available [facility] [address] [place] [address], 55735, 06/02/2024 15:33:38 06/02/2006/02/2024 CBC WITH AUTO DIFF baso # 0.03 x10-3 /uL 0-0.2 Not Available [facility] [address] [place] [address], 03722, 06/02/2024 15:33:38 06/02/2006/02/2024 CBC WITH AUTO DIFF immature granulocytes # 0.03 x10-3 /uL 0-0.03 Not Available [facility] [address] [place] [address], 17379, 06/02/2024 15:33:38 06/02/2006/02/2024 CBC WITH AUTO DIFF performing lab [facility] [address] [place] [address] Medic al Direc dennis blackburn MD Not Available [facility] [address] [place] [address], 64884, 06/02/2024 15:33:38 06/02/2006/02/2024 CREAT ININE WITH GFR creat 0.59 mg/dL 0.5-1. 1 Not Available [facility] [address] [place] [address], 98034, 06/02/2024 18:32:48 06/02/2006/02/2024 CREAT ININE WITH GFR glomerular filtration rate 104 >60 This eGFR resul t was calcu lated using the CKD-E PI 2020 Creat inine Equat ion Not Available [facility] [address] [place] [address], 63588, 06/02/2024 18:32:48 06/02/2006/02/2024 ELECT ROLYT ES sodium 139 mEq/L 135-14 5 Not Available [facility] [address] [place] [address], 31960, 06/02/2024 18:32:48 06/02/2006/02/2024 ELECT ROLYT ES potassium 4.2 mmol/ L 3.5-5. 5 Not Available [facility] [address] [place] [address], 09729, 06/02/2024 18:32:48 06/02/2006/02/2024 ELECT ROLYT ES chloride 107 mmol/ L 96-110 Not Available [facility] [address] [place] [address], 26738, 06/02/2024 18:32:48 06/02/20 24 06/02/2024 ELECT ROLYT ES CO2 29 mmol/ L 21-32 Not Available [facility] [address] [place] [address], 96114, 06/02/2024 18:32:48 06/02/2006/02/2024 ELECT ROLYT ES anion gap 3 3-11 Not Available [facility] [address] [place] [address], 16008, 06/02/2024 18:32:48 06/02/20 24 06/02/2024 SGOT SGOT 11 U/L 10-42 Not Available [facility] [address] [place] [address], 87095, 06/02/2024 18:32:49 06/02/2006/02/2024 SGPT SGPT 17 U/L 10-60 Not Available [facility] [address] [place] [address], 61890, 06/02/2024 16:16:40 06/02/2006/02/2024 SGPT performing lab [facility] [address] [place] [address] Medic al Direc dennis blackburn MD Not Available [facility] [address] [place], [address], 06/02/2024 16:16:40 06/02/2006/02/2024 TREPO NEMAL AB treponemal Ab NEGATI VE negati ve Not Available [facility] [address] [place] [address], 58195, 06/02/2024 18:32:49 06/02/2006/02/2024 TREPO NEMAL AB performing lab [facility] [address] [place] [address] Medic al Direc dennis blackburn MD Not Available [facility] [address] [place] [address], 44462, 06/02/2024 18:32:49 06/02/2006/02/2024 VAGIN OSIS DNA PANEL trichomonas vaginalis TNP negati ve Testi ng not perfo rmed Reaso n: SPECI MEN SUBME RGED IN URINE UPON ARRIV AL Not Available [facility] [address] [place] [address], 90680, 06/02/2024 20:41:50 06/02/2006/02/2024 VAGIN OSIS DNA PANEL performing lab [facility]for [facility] [address] [place] [address] Medic al Direc dennis blackburn MD Not Available [facility] [address] [place] [address], 79178, 06/02/2024 20:41:50 06/02/2006/02/2024 URINA LYSIS glucose, (UA) NEGATI VE mg/dL negati ve Not Available [facility] [address] [place] [address], 47308, 06/02/2024 21:16:49 06/02/20 24 06/02/2024 URINA LYSIS bilirubin, urine NEGATI VE negati ve Not Available [facility] [address] [place], [address], 06/02/2024 21:16:49 06/02/2006/02/2024 URINA LYSIS ketone, urine NEGATI VE mg/dL negati ve Not Available [facility] [address] [place], [address], 06/02/2024 21:16:49 06/02/2006/02/2024 URINA LYSIS specific gravity, urine 1.016 1.003- 1.030 Not Available [facility] [address] [place], [address], 06/02/2024 21:16:49 06/02/2006/02/2024 URINA LYSIS blood, urine NEGATI VE negati ve Not Available [facility] [address] [place], [address], 06/02/2024 21:16:49 06/02/2006/02/2024 URINA LYSIS pH, urine 6.5 5.0-8. 0 Not Available [facility] [address] [place], [address], 06/02/2024 21:16:49 06/02/2006/02/2024 URINA LYSIS protein, urine NEGATI VE mg/dL <= trace Not Available [facility] [address] [place], [address], 06/02/2024 21:16:49 06/02/2006/02/2024 URINA LYSIS urobilinogen , urine 0.2 E.U./ dL 0.2-1. 0 Not Available [facility] [address] [place], [address], 06/02/2024 21:16:49 06/02/2006/02/2024 URINA LYSIS nitrite, urine NEGATI VE negati ve Not Available [facility] [address] [place], [address], 06/02/2024 21:16:49 06/02/2006/02/2024 URINA LYSIS leukocyte esterase, urine NEGATI VE negati ve Not Available [facility] [address] [place], [address], 06/02/2024 21:16:49 06/02/2006/02/2024 URINA LYSIS performing lab [facility] [address] [place] [address] Medic al Diretanika blackburn MD Not Available [facility] [address] [place], [address], 06/02/2024 21:16:49 06/02/2006/02/2024 URINE CULTU RE performing lab [facility] [address] [place] [address] Medic al Skip blackburn MD Not Available [facility] [address] [place] [address], 530[address], 06/03/2024 14:59:30 06/02/2006/03/2024 URINE CULTU RE urine culture No growth Not Available [facility] [address] [place] [address], 96974, 06/03/2024 14:59:30 06/02/20 24 06/02/2024 VAGIN OSIS DNA PANEL trichomonas vaginalis TNP negati ve Testi ng not perfo rmed Reaso n: SPECI MEN SUBME RGED IN URINE UPON ARRIV AL Not Available [facility] [address] [place] [address], 09290, 06/05/2024 14:21:19 06/02/2006/02/2024 VAGIN OSIS DNA PANEL performing lab [facility] [address] [place] [address] Medic al Skip blackburn MD Not Available [facility] [address] [place], [address], 06/05/2024 14:21:19 06/28/2006/28/2024 URINA LYSIS glucose, (UA) NEGATI VE mg/dL negati ve Not Available [facility] [address] [place], [address], 06/28/2024 19:26:27 06/28/2006/28/2024 URINA LYSIS bilirubin, urine NEGATI VE negati ve Not Available [facility] [address] [place], [address], 06/28/2024 19:26:27 06/28/2006/28/2024 URINA LYSIS ketone, urine NEGATI VE mg/dL negati ve Not Available [facility] [address] [place], [address], 06/28/2024 19:26:27 06/28/2006/28/2024 URINA LYSIS specific gravity, urine 1.020 1.003- 1.030 Not Available [facility] [address] [place], [address], 06/28/2024 19:26:27 06/28/2006/28/2024 URINA LYSIS blood, urine NEGATI VE negati ve Not Available [facility] [address] [place], [address], 06/28/2024 19:26:27 06/28/2006/28/2024 URINA LYSIS pH, urine 7.5 5.0-8. 0 Not Available [facility] [address] [place], [address], 06/28/2024 19:26:27 06/28/2006/28/2024 URINA LYSIS protein, urine NEGATI VE mg/dL <= trace Not Available [facility] [address] [place], [address], 06/28/2024 19:26:27 06/28/2006/28/2024 URINA LYSIS urobilinogen , urine 0.2 E.U./ dL 0.2-1. 0 Not Available [facility] [address] [place], [address], 06/28/2024 19:26:27 06/28/2006/28/2024 URINA LYSIS nitrite, urine NEGATI VE negati ve Not Available [facility] [address] [place], [address], 06/28/2024 19:26:27 06/28/2006/28/2024 URINA LYSIS leukocyte esterase, urine NEGATI VE negati ve Not Available [facility] [address] [place], [address], 06/28/2024 19:26:27 06/28/2006/28/2024 URINA LYSIS performing lab [facility] a [facility] of [facility] [address] [facility] [address] [facility] [place] [address] Medic al Direc dennis blackburn MD Not Available [facility] [address] [place], [address], 06/28/2024 19:26:27 06/28/2006/29/2024 VAGIN OSIS DNA PANEL trichomonas vaginalis NEGATI VE negati ve Not Available [facility] [address] [place] [address], 390[address], 06/29/2024 11:01:59 06/28/2006/29/2024 VAGIN OSIS DNA PANEL garderella vaginalis NEGATI VE negati ve Not Available [facility] [address] [place], [address], 06/29/2024 11:01:59 06/28/2006/29/2024 VAGIN OSIS DNA PANEL tad species NEGATI VE negati ve Not Available [facility] [address] [place] [address], 36927, 06/29/2024 11:01:59 06/28/20 24 06/29/2024 VAGIN OSIS DNA PANEL performing lab [facility] [address] [facility] [place] [address] Medic al Diretanika blackburn MD Not Available [facility] [address] [place] [address], 04952, 06/29/2024 11:01:59 06/28/20 24 06/28/2024 URINE CULTU RE performing lab Perfor [facility] [address] [facility] [place] [address] Medic al Dire dennis blackburn MD Not Available [facility] [address] [place] [address], 64494, 06/29/2024 13:17:16 06/28/20 24 06/29/2024 URINE CULTU RE urine culture No growth Not Available [facility] [address] [place] [address], 85121, 06/29/2024 13:17:16 02/23/20 25 02/22/2025 CULTU RE URINE .note See Note Origi nal Order ing Provi papo: SAMUEL MCFARLAND [facility] - [address] [facility], [facility] henrietta [place], [place] [address] Not Available [facility] [address] [place] [address], 348[address], 02/23/2025 13:17:03 02/23/20 25 02/22/2025 CULTU RE URINE culture, urine ENTERO COCCUS SPECIE S abnormal >100, 000 CFU/m L Enter ococc us speci es Not Available [facility] [address] [place] [address], 46986, 02/23/2025 13:17:03 03/13/20 25 03/13/2025 CBC WITH AUTO DIFFE GERALDO AL WBC 7.7 K/mcL 4.8-10 .8 Not Available [facility] [address] [place] [address], 83383, 03/13/2025 14:53:03 03/13/20 25 03/13/2025 CBC WITH AUTO DIFFE RENTI AL RBC 4.10 M/mcL 3.80-4 .80 Not Available [facility] [address] [place], [address], 03/13/2025 14:53:03 03/13/20 25 03/13/2025 CBC WITH AUTO DIFFE RENTI AL hemoglobin 11.9 g/dL 11.5-1 6.0 Not Available [facility] [address] [place], [address], 03/13/2025 14:53:03 03/13/20 25 03/13/2025 CBC WITH AUTO DIFFE RENTI AL hematocrit 37.4 % 35.0-4 7.0 Not Available [facility] [address] [place], [address], 03/13/2025 14:53:03 03/13/20 25 03/13/2025 CBC WITH AUTO DIFFE RENTI AL MCV 91.4 fL 79.0-9 8.0 Not Available [facility] [address] [place], [address], 03/13/2025 14:53:03 03/13/20 25 03/13/2025 CBC WITH AUTO DIFFE RENTI AL MCH 29.1 pcg 27.0-3 2.0 Not Available [facility] [address] [place], [address], 03/13/2025 14:53:03 03/13/2003/13/2025 CBC WITH AUTO DIFFE RENTI AL MCHC 31.8 g/dL 32.0-3 7.0 low Not Available [facility] [address] [place], [address], 03/13/2025 14:53:03 03/13/20 25 03/13/2025 CBC WITH AUTO DIFFE RENTI AL RDW 13.2 % 11.0-1 5.0 Not Available [facility] [address] [place], [address], 03/13/2025 14:53:03 03/13/20 25 03/13/2025 CBC WITH AUTO DIFFE RENTI AL platelets 334 K/mcL 130-40 0 Not Available [facility] [address] [place], [address], 03/13/2025 14:53:03 03/13/20 25 03/13/2025 CBC WITH AUTO DIFFE RENTI AL MPV 9.6 fL 7.0-11 .0 Not Available [facility] [address] [place], [address], 03/13/2025 14:53:03 03/13/20 25 03/13/2025 CBC WITH AUTO DIFFE RENTI AL NRBC 0.0 % <1.0 Not Available [facility] [address] [place], [address], 03/13/2025 14:53:03 03/13/20 25 03/13/2025 CBC WITH AUTO DIFFE RENTI AL NRBC absolute 0.00 K/mcL <0.10 Not Available [facility] [address] [place], [address], 03/13/2025 14:53:03 03/13/20 25 03/13/2025 CBC WITH AUTO DIFFE RENTI AL neutrophils relative 56.3 % Not Available [facility] [address] [place], [address], 03/13/2025 14:53:03 03/13/20 25 03/13/2025 CBC WITH AUTO DIFFE RENTI AL lymphocytes relative 34.1 % Not Available [facility] [address] [place], [address], 03/13/2025 14:53:03 03/13/20 25 03/13/2025 CBC WITH AUTO DIFFE RENTI AL monocytes relative 7.2 % Not Available [facility] [address] [place] [address], 16[address], 03/13/2025 14:53:03 03/13/20 25 03/13/2025 CBC WITH AUTO DIFFE RENTI AL eosinophils relative 1.7 % Not Available [facility] [address] [place], [address], 03/13/2025 14:53:03 03/13/20 25 03/13/2025 CBC WITH AUTO DIFFE RENTI AL basophils relative 0.4 % Not Available [facility] [address] [place], [address], 03/13/2025 14:53:03 03/13/20 25 03/13/2025 CBC WITH AUTO DIFFE RENTI AL immature granulocytes relative 0.3 % Not Available [facility] [address] [place], [address], 03/13/2025 14:53:03 03/13/20 25 03/13/2025 CBC WITH AUTO DIFFE RENTI AL neutrophils absolute 4.31 K/mcL 1.50-7 .00 Not Available [facility] [address] [place], [address], 03/13/2025 14:53:03 03/13/20 25 03/13/2025 CBC WITH AUTO DIFFE RENTI AL lymphocytes absolute 2.61 K/mcL 1.00-5 .00 Not Available [facility] [address] [place], [address], 03/13/2025 14:53:03 03/13/20 25 03/13/2025 CBC WITH AUTO DIFFE RENTI AL monocytes absolute 0.55 K/mcL 0.20-1 .00 Not Available [facility] [address] [place], [address], 03/13/2025 14:53:03 03/13/20 25 03/13/2025 CBC WITH AUTO DIFFE RENTI AL eosinophils absolute 0.13 K/mcL 0.00-0 .50 Not Available [facility] [address] [place], [address], 03/13/2025 14:53:03 03/13/20 25 03/13/2025 CBC WITH AUTO DIFFE RENTI AL basophils absolute 0.03 K/mcL 0.00-0 .20 Not Available [facility] [address] [place], [address], 03/13/2025 14:53:03 03/13/20 25 03/13/2025 CBC WITH AUTO DIFFE RENTI AL immature granulocytes absolute 0.02 K/mcL 0.00-0 .03 Not Available [facility] [address] [place] [address], 28[address], 03/13/2025 14:53:03 03/13/20 25 03/13/2025 CBC WITH AUTO DIFFE RENTI AL note See Report [facility], [address] [facility], Miriamin gfiel d, [place] [address] Not Available [facility] [address] [place] [address], [address], 03/13/2025 14:53:03 03/13/20 25 03/13/2025 COMPR EHENS DIONISIO METAB OLIC PANEL sodium 141 mmol/ L 133-14 5 Not Available [facility] [address] [place] [address], 0[address], 03/13/2025 16:04:15 03/13/20 25 03/13/2025 COMPR EHENS DIONISIO METAB OLIC PANEL potassium 4.3 mmol/ L 3.5-5. 5 Not Available [facility] [address] [place] [address], 88[address], 03/13/2025 16:04:15 03/13/20 25 03/13/2025 COMPR EHENS DIONISIO METAB OLIC PANEL chloride 107 mmol/ L 96-110 Not Available [facility] [address] [place] [address], 317[address], 03/13/2025 16:04:15 03/13/20 25 03/13/2025 COMPR EHENS DIONISIO METAB OLIC PANEL CO2 30 mmol/ L 21-32 Not Available [facility] [address] [place] [address], 577[address], 03/13/2025 16:04:15 03/13/20 25 03/13/2025 COMPR EHENS DIONISIO METAB OLIC PANEL anion gap 4 3-11 Not Available [facility] [address] [place] [address], 79[address], 03/13/2025 16:04:15 03/13/20 25 03/13/2025 COMPR EHENS DIONISIO METAB OLIC PANEL glucose 81 mg/dL 70-100 Not Available [facility] [address] [place], [address], 03/13/2025 16:04:15 03/13/20 25 03/13/2025 COMPR EHENS DIONISIO METAB OLIC PANEL BUN 16 mg/dL 5-25 Not Available [facility] [address] [place], [address], 03/13/2025 16:04:15 03/13/20 25 03/13/2025 COMPR EHENS DIONISIO METAB OLIC PANEL creatinine 0.63 mg/dL 0.50-1 .10 Not Available [facility] [address] [place], [address], 03/13/2025 16:04:15 03/13/20 25 03/13/2025 COMPR EHENS DIONISIO METAB OLIC PANEL eGFR 102 mL/mi n/1.7 3m2 >=60 Calcu latio n based on the Chron ic Kidne y Disea se Epide miolo gy Colla borat ion (CKD- EPI) equat ion refit witho ut adjus tment for race. Not Available [facility] [address] [place], [place], [address], 03/13/2025 16:04:15 03/13/20 25 03/13/2025 COMPR EHENS DIONISIO METAB OLIC PANEL BUN/creatini ne ratio 25.4 Not Available [facility] [address] [place], [address], 03/13/2025 16:04:15 03/13/20 25 03/13/2025 COMPR EHENS DIONISIO METAB OLIC PANEL calcium 8.6 mg/dL 8.5-10 .5 Not Available [facility] [address] [place], [address], 03/13/2025 16:04:15 03/13/20 25 03/13/2025 COMPR EHENS DIONISIO METAB OLIC PANEL AST (SGOT) 10 unit/ L 10-42 Not Available [facility] [address] [place] [address], [address], 03/13/2025 16:04:15 03/13/20 25 03/13/2025 COMPR EHENS DIONISIO METAB OLIC PANEL ALT (SGPT) 19 unit/ L 10-60 Not Available [facility] [address] [place] [address], [address], 03/13/2025 16:04:15 03/13/20 25 03/13/2025 COMPR EHENS DIONISIO METAB OLIC PANEL alkaline phosphatase 116 unit/ L 42-121 Not Available [facility] [address] [place] [address], [address], 03/13/2025 16:04:15 03/13/20 25 03/13/2025 COMPR EHENS DIONISIO METAB OLIC PANEL total protein 6.6 g/dL 6.0-8. 0 Not Available [facility] [address] [place] [address], [address], 03/13/2025 16:04:15 03/13/20 25 03/13/2025 COMPR EHENS DIONISIO METAB OLIC PANEL albumin 3.6 g/dL 3.2-5. 0 Not Available [facility] [address] [place] [address], [address], 03/13/2025 16:04:15 03/13/20 25 03/13/2025 COMPR EHENS DIONISIO METAB OLIC PANEL total bilirubin 0.5 mg/dL 0.0-1. 4 Not Available [facility] [address] [place] [address], [address], 03/13/2025 16:04:15 03/13/20 25 03/13/2025 COMPR EHENS DIONISIO METAB OLIC PANEL note See Report [facility] [address] [facility], Sofiya shrestha d, [place] [address] Not Available [facility] [address] [place] [address], [address], 03/13/2025 16:04:15 03/13/20 25 03/13/2025 LIPID PANEL WITH REFLE X TO DIREC T LDL cholesterol 212 mg/dL 0-200 high Not Available [facility] [address] [place], [address], 03/13/2025 16:06:16 03/13/20 25 03/13/2025 LIPID PANEL WITH REFLE X TO DIREC T LDL triglyceride s 154 mg/dL 0-150 high Not Available [facility] [address] [place], [address], 03/13/2025 16:06:16 03/13/20 25 03/13/2025 LIPID PANEL WITH REFLE X TO DIREC T LDL HDL 40 mg/dL >=40 Not Available [facility] [address] [place], [address], 03/13/2025 16:06:16 03/13/20 25 03/13/2025 LIPID PANEL WITH REFLE X TO DIREC T LDL LDL calculated 141 mg/dL 0-100 high Not Available [facility] [address] [place], [address], 03/13/2025 16:06:16 03/13/20 25 03/13/2025 LIPID PANEL WITH REFLE X TO DIREC T LDL VLDL cholesterol linda 30.8 mg/dL Not Available [facility] [address] [place], [address], 03/13/2025 16:06:16 03/13/20 25 03/13/2025 LIPID PANEL WITH REFLE X TO DIREC T LDL non HDL chol. (LDL+VLDL) 172 mg/dL <145 high Not Available [facility] [address] [place], [address], 03/13/2025 16:06:16 03/13/20 25 03/13/2025 LIPID PANEL WITH REFLE X TO DIREC T LDL chol/HDL ratio 5.3 0.0-4. 4 high Not Available [facility] [address] [place], [address], 03/13/2025 16:06:16 03/13/20 25 03/13/2025 LIPID PANEL WITH REFLE X TO DIREC T LDL note See Report high [facility], [address] [facility], Sprin gfiel d, [place] [address] Not Available [facility] [address] [place] [address], [address], 03/13/2025 16:06:16 03/13/2003/13/2025 LIVER FIBRO SIS, FIBRO TEST- ACTIT EST PANEL fibrosis score 0.09 Not Available [facility] [address] [place] [address], [address], 03/23/2025 04:41:10 03/13/2003/13/2025 LIVER FIBRO SIS, FIBRO TEST- ACTIT EST PANEL fibrosis stage F0 Not Available [facility] [address] [place] [address], [address], 03/23/2025 04:41:10 03/13/2003/13/2025 LIVER FIBRO SIS, FIBRO TEST- ACTIT EST PANEL fibrosis interpretati on SEE NOTE no fibro sis Fibro Test Score (f) Metav ir Score f>=0 and f<=0. 21 : F0 (no fibro sis) f>0.2 1 and f<=0. 27 : F0-F1 (no fibro sis) f>0.2 7 and f<=0. 31 : F1 (mini mal fibro sis) f>0.3 1 and f<=0. 48 : F1-F2 (mini mal fibro sis) f>0.4 8 and f<=0. 58 : F2 (mode rate fibro sis) f>0.5 8 and f<=0. 72 : F3 (adva nced fibro sis) f>0.7 2 and f<=0. 74 : F3-F4 (adva nced fibro sis) f>0.7 4 and f<=1. 00 : F4 (sandro re fibro sis) Not Available [facility] [address] [place] [address], [address], 03/23/2025 04:41:10 03/13/2003/13/2025 LIVER FIBRO SIS, FIBRO TEST- ACTIT EST PANEL necroinflamm at activity score 0.02 Not Available [facility] [address] [place] [address], [address], 03/23/2025 04:41:10 03/13/2003/13/2025 LIVER FIBRO SIS, FIBRO TEST- ACTIT EST PANEL necroinflamm at activity grade A0 Not Available [facility] [address] [place], [address], 03/23/2025 04:41:10 03/13/2003/13/2025 LIVER FIBRO SIS, FIBRO TEST- ACTIT EST PANEL necroinflamm at interpretati on SEE NOTE no activ ity ActiT est Score (a) Metav ir Score a>=0 and a<=0. 17 : A0 (no activ ity) a>0.1 7 and a<=0. 29 : A0-A1 (no activ ity) a>0.2 9 and a<=0. 36 : A1 (mini mal activ ity) a>0.3 6 and a< =0.52 : A1-A2 (mini mal activ ity) a>0.5 2 and a<=0. 60 : A2 (sign ifica nt activ ity) a>0.6 0 and a<=0. 62 : A2-A3 (sign ifica nt activ ity) a>0.6 2 and a<=1. 00 : A3 (sandro re activ ity) Not Available [facility] [address] [place] [address], [address], 03/23/2025 04:41:10 03/13/2003/13/2025 LIVER FIBRO SIS, FIBRO TEST- ACTIT EST PANEL bilirubin total 0.3 mg/dL 0.2-1. 2 Not Available [facility] [address] [place], [address], 03/23/2025 04:41:10 03/13/2003/13/2025 LIVER FIBRO SIS, FIBRO TEST- ACTIT EST PANEL gamma glutamyl transferase (GGT) 14 U/L 3-65 Not Available [facility] [address] [place] [address], [address], 03/23/2025 04:41:10 03/13/2003/13/2025 LIVER FIBRO SIS, FIBRO TEST- ACTIT EST PANEL alanine aminotransfe rase (ALT) 9 U/L 6-29 Not Available [facility] [address] [place] [address], [address], 03/23/2025 04:41:10 03/13/2003/13/2025 LIVER FIBRO SIS, FIBRO TEST- ACTIT EST PANEL ikkra-3-aqro oglobulin 155 mg/dL 106-27 9 Not Available [facility] [address] [place] [address], [address], 03/23/2025 04:41:10 03/13/2003/13/2025 LIVER FIBRO SIS, FIBRO TEST- ACTIT EST PANEL haptoglobin 129 mg/dL 43-212 Not Available [facility] [address] [place] [address], [address], 03/23/2025 04:41:10 03/13/2003/13/2025 LIVER FIBRO SIS, FIBRO TEST- ACTIT EST PANEL apolipoprote in A1 131 mg/dL 101-19 8 Not Available [facility] [address] [place] [address], [address], 03/23/2025 04:41:10 03/13/2003/13/2025 LIVER FIBRO SIS, FIBRO TEST- ACTIT EST PANEL reference id [id number] Not Available [facility] [address] [place] [address], [address], 03/23/2025 04:41:10 03/13/2003/13/2025 LIVER FIBRO SIS, FIBRO TEST- ACTIT EST PANEL footnote SEE NOTE The relia bilit y of resul ts is depen dent on compl iance with the prean alyti linda and nivia tical condi tions recom ruthy d by [employer] ed[employer] dionisio. The tests have to be defer red for: acute hemol ysis, acute hepat itis, acute infla mmati on, extra hepat ic adi stasi s. The advic e of a speci alist jesi d be sough t for inter preta tion in chron ic hemol ysis and Gilbe rt's syndr ome. The test inter preta tion is not valid ated in liver trans plant patie nts. Battiest jess extre me value s of one of the compo nents shoul d lead to cauti on in inter preti ng the resul ts. In case of disco rdanc e betwe en a biops y resul t and a test, it is recom ruthy d to seek the advic e of a speci alist . The cause s of these disco rdanc es could be due to a flaw of the test or to a flaw in the biops y: i.e. a liver biops y has a 33% varia bilit y rate for one fibro sis stage . Fibro Test is inter preta ble for chron ic hepat itis B and C, alcoh olic and non alcoh olic steat osis. ActiT est is inter preta ble for chron ic hepat itis B and C. The perfo rmanc e lakia cteri stics have been deter mined by [facility], [facility] . It has not been clear ed or appro kya by the U.S. Food and Drug Admin istra tion. Perfo rmanc e lakia cteri stics refer to the nivia tical perfo rmanc e of the test. [facility] , [facility], the assoc iated logo, [facility] and all assoc iated [facility] garcia are the kumar tered trade garcia of [facility]. All third democrat garcia - (R) and (TM) - are the prope rty of their respe ctive global process owner s. (C) 1999- 2013 [facility] [employer] porat ed. All right s reser kya. Test Perfo rmed at: [facility] [address] [facility] [place] [address] Denise bowen MD, PhD, SAMUEL Not Available [facility] [employer] [address] [place] [address], [place], [address], 03/23/2025 04:41:10 03/13/20 25 03/13/2025 LIVER FIBRO SIS, FIBRO TEST- ACTIT EST PANEL note See Report [facility], [address] [facility], [place]iya garcia, [place] [address] Not Available [facility] [address] [place], [address], 03/23/2025 04:41:10 03/14/20 25 03/14/2025 URINA LYSIS WITH REFLE X MICRO SCOPI C specific gravity urine 1.018 1.003- 1.030 Not Available [facility] [address] [place], [address], 03/14/2025 19:43:35 03/14/20 25 03/14/2025 URINA LYSIS WITH REFLE X MICRO SCOPI C pH, urine 5.5 pH 5.0-8. 0 Not Available [facility] [address] [place], [address], 03/14/2025 19:43:35 03/14/20 25 03/14/2025 URINA LYSIS WITH REFLE X MICRO SCOPI C leukocytes, urine Negati ve negati ve Not Available [facility] [address] [place], [address], 03/14/2025 19:43:35 03/14/20 25 03/14/2025 URINA LYSIS WITH REFLE X MICRO SCOPI C nitrite, urine Negati ve negati ve Not Available [facility] [address] [place], [address], 03/14/2025 19:43:35 03/14/20 25 03/14/2025 URINA LYSIS WITH REFLE X MICRO SCOPI C protein, urine Negati ve mg/dL <=trac e Not Available [facility] [address] [place], [address], 03/14/2025 19:43:35 03/14/20 25 03/14/2025 URINA LYSIS WITH REFLE X MICRO SCOPI C glucose, urine Negati ve mg/dL negati ve Not Available [facility] [address] [place], [address], 03/14/2025 19:43:35 03/14/20 25 03/14/2025 URINA LYSIS WITH REFLE X MICRO SCOPI C ketones, urine Negati ve mg/dL negati ve Not Available [facility] [address] [place], [address], 03/14/2025 19:43:35 03/14/20 25 03/14/2025 URINA LYSIS WITH REFLE X MICRO SCOPI C urobilinogen , urine 0.2 mg/dL 0.2-1. 0 Not Available [facility] [address] [place], [address], 03/14/2025 19:43:35 03/14/20 25 03/14/2025 URINA LYSIS WITH REFLE X MICRO SCOPI C bilirubin, urine Negati ve negati ve Not Available [facility] [address] [place] [address], [address], 03/14/2025 19:43:35 03/14/20 25 03/14/2025 URINA LYSIS WITH REFLE X MICRO SCOPI C blood, urine Negati ve negati ve Not Available [facility] [address] [place], [address], 03/14/2025 19:43:35 03/14/20 25 03/14/2025 URINA LYSIS WITH REFLE X MICRO SCOPI C note See Report [facility] [address] [facility], Sofiya arringtonsydnie garcia, [place] [address] Not Available [facility] [address] [place] [address], [address], 03/14/2025 19:43:35 03/14/20 25 03/14/2025 VAGIN ITIS PATHO GENS MOLEC ULAR STUDY .note See Note Origi nal Order ing Provi papo: SAMUEL FLYNN BARTOLO [facility] - Labor atory - [address] [facility], [place] garcia, [place] [address] Not Available [facility] [address] [place] [address], [address], 03/15/2025 11:29:33 03/14/20 25 03/14/2025 VAGIN ITIS PATHO GENS MOLEC ULAR STUDY trichomonas vaginalis Negati ve negati ve Not Available [facility] [address] [place], [address], 03/15/2025 11:29:33 03/14/20 25 03/14/2025 VAGIN ITIS PATHO GENS MOLEC ULAR STUDY gardnerella vaginalis Negati ve negati ve Not Available [facility] [address] [place], [address], 03/15/2025 11:29:33 03/14/20 25 03/14/2025 VAGIN ITIS PATHO GENS MOLEC ULAR STUDY tad species Negati ve negati ve Not Available [facility] [address] [place], [address], 03/15/2025 11:29:33 03/14/20 25 03/14/2025 CULTU RE URINE .note See Note Origi nal Order ing Provi papo: SAMUEL LERMA T GEE BARTOLO [facility] - Labor atory - [address] [facility], [place]iya garcia, [place] [address] Not Available [facility] [address] [place], [address], 03/15/2025 14:12:14 03/14/20 25 03/14/2025 CULTU RE URINE culture, urine 10,000 -49,00 0 CFU/mL Mixed urogen ital luisa, no uropat hogens presen t. Sugges t repeat specim en if clinic ally wiliam jess. Not Available [facility] [address] [place] [address], [address], 03/15/2025 14:12:14 06/28/2006/28/2025 URINA LYSIS WITH REFLE X MICRO SCOPI C specific gravity urine 1.020 1.003- 1.030 Not Available [facility] [address] [place], [address], 06/28/2025 18:30:56 06/28/20 25 06/28/2025 URINA LYSIS WITH REFLE X MICRO SCOPI C pH, urine 5.5 pH 5.0-8. 0 Not Available [facility] [address] [place], [address], 06/28/2025 18:30:56 06/28/2006/28/2025 URINA LYSIS WITH REFLE X MICRO SCOPI C leukocytes, urine Negati ve negati ve Not Available [facility] [address] [place], [address], 06/28/2025 18:30:56 06/28/20 25 06/28/2025 URINA LYSIS WITH REFLE X MICRO SCOPI C nitrite, urine Negati ve negati ve Not Available [facility] [address] [place], [address], 06/28/2025 18:30:56 06/28/2006/28/2025 URINA LYSIS WITH REFLE X MICRO SCOPI C protein, urine Negati ve mg/dL <=trac e Not Available [facility] [address] [place] [address], [address], 06/28/2025 18:30:56 06/28/20 25 06/28/2025 URINA LYSIS WITH REFLE X MICRO SCOPI C glucose, urine Negati ve mg/dL negati ve Not Available [facility] [address] [place], [address], 06/28/2025 18:30:56 06/28/20 25 06/28/2025 URINA LYSIS WITH REFLE X MICRO SCOPI C ketones, urine Negati ve mg/dL negati ve Not Available [facility] [address] [place], [address], 06/28/2025 18:30:56 06/28/20 25 06/28/2025 URINA LYSIS WITH REFLE X MICRO SCOPI C urobilinogen , urine 0.2 mg/dL 0.2-1. 0 Not Available [facility] [address] [place], [address], 06/28/2025 18:30:56 06/28/20 25 06/28/2025 URINA LYSIS WITH REFLE X MICRO SCOPI C bilirubin, urine Negati ve negati ve Not Available [facility] [address] [place], [address], 06/28/2025 18:30:56 06/28/20 25 06/28/2025 URINA LYSIS WITH REFLE X MICRO SCOPI C blood, urine Negati ve negati ve Not Available [facility] [address] [place], [address], 06/28/2025 18:30:56 06/28/2006/28/2025 URINA LYSIS WITH REFLE X MICRO SCOPI C note See Report [facility], [address] [facility], [facility], [facility] [place] [address] Not Available [facility] [address] [place] [address], [address], 06/28/2025 18:30:56 06/28/20 25 06/28/2025 CHLAM YDIA TRACH OMATI S AND NEISS ERIA GONOR RHOEA E MOLEC ULAR STUDY .note See Note Origi nal Order ing Provi papo: SAMUEL FLYNN BARTOLO [facility] - Labor [facility]ory - [address] [facility] d, [facility] [place] [address] Not Available [facility] [address] [place] [address], [address], 06/29/2025 09:12:51 06/28/20 25 06/28/2025 CHLAM YDIA TRACH OMATI S AND NEISS ERIA GONOR RHOEA E MOLEC ULAR STUDY neisseria gonorrhoeae PCR Negati ve negati ve Not Available [facility] [address] [place] [address], [address], 06/29/2025 09:12:51 06/28/20 25 06/28/2025 CHLAM YDIA TRACH OMATI S AND NEISS ERIA GONOR RHOEA E MOLEC ULAR STUDY chlamydia trachomatis PCR Negati ve negati ve Not Available [facility] [address] [place] [address], [address], 06/29/2025 09:12:51 06/28/20 25 06/28/2025 VAGIN ITIS PATHO GENS MOLEC ULAR STUDY .note See Note Origi nal Order ing Provi papo: SAMUEL FLYNN BARTOLO [facility] - [address] [facility], [place]iya shrestha d[facility] [place] [address] Not Available [facility] [address] [place], [address], 06/29/2025 11:19:48 06/28/20 25 06/28/2025 VAGIN ITIS PATHO GENS MOLEC ULAR STUDY trichomonas vaginalis Negati ve negati ve Not Available [facility] [address] [place], [address], 06/29/2025 11:19:48 06/28/2006/28/2025 VAGIN ITIS PATHO GENS MOLEC ULAR STUDY gardnerella vaginalis Negati ve negati ve Not Available [facility] [address] [place], [address], 06/29/2025 11:19:48 06/28/20 25 06/28/2025 VAGIN ITIS PATHO GENS MOLEC ULAR STUDY tad species Negati ve negati ve Not Available [facility] [address] [place], [address], 06/29/2025 11:19:48 06/28/2006/28/2025 CULTU RE URINE .note See Note Origi nal Order ing Provi papo: SAMUEL FLYNN BARTOLO [facility] - [facility] - [address] [facility], Sofiya shrestha d, [facility] [place] [address] Not Available [facility] [address] [place], [address], 06/29/2025 13:34:42 06/28/20 25 06/28/2025 CULTU RE URINE culture, urine No growth Not Available [facility] [address] [place], [address], 06/29/2025 13:34:42 12/20/19 25 12/18/2024 US, abdom en, compl ete See Note [facility] , a member of [facility] t Name: HOLGER VERGARA Date of : 1964 Reason for Exam: ABDOMI NAL PAIN Exam Date: 2024 [id number] EST Report Status : Final Orderi ng Provid er: PAOLA REARDON PCP: JESUS ALSTON URE: Ultras ound of the abdome n. HISTOR Y: ABDOMI NAL PAIN. COMPAR REYNA: Liver ultras ound 2022. TECHNI QUE: Graysc sandy, color Dopple r, and spectr al Dopple r ultras ound evalua tion of the abdome n. FINDIN GS: Liver: Normal echote xture. No focal lesion . Normal flow in the main portal vein. Biliar y: Multip le small mobile gallst ones. Small foci of suscep tibili ty artifa ct in the gallbl adder wall sugges tive of mild adenom yomato sis. Negati ve sonogr aphic Abrhaam sign. Pancre as: Visual ized portio ns are normal . Kidney s: Normal size. No focal lesion or hydron ephros is. Spleen : Normal size. No focal lesion . Vascul ature: Visual ized portio ns of the aorta and IVC are normal . IMPRES KAVITHA: Cholel ithias is withou t eviden ce of cholec ystiti s. Gallbl adder adenom yomato sis. ------ -- FINAL REPORT ------ -- Dictat ed By: Zane Arriaga Dictat ed Date: 2024 08:52 ET Assign ed Physic kristopher: Zane Arriaga Review ed and Electr onical ly Signed By: Zane Arriaga Signed Date: 2024 09:30 ET Workst ation ID: [id number] Transc ribed By: Self Edit Transc ribed Date: 2024 08:53 ET cmartbrunol [facility] (Imaging) [ 194 ] [address] [place], [address], 12/19/2024 13:08:02 Result Notes None recorded. Problems Name Problem SNOMED Code Status Onset Date Resolution Date Notes Provider Name and Address Organization Details Recorded Time Irritable bowel syndrome with diarrhea 042500142 Active 2022 Sujata Christie MD [address] [place] [address] elsie, [place], [address], [place] - SUJATA CHRISTIE MD [facility] 3 17:27:33 Steatotic liver disease 427818489 Active 2023 Sujata Christie MD [address] [place] [address] elsie, [place], [address], [place] CHRISTIE MD [facility] 4 14:43:29 History of herpes zoster 43676760559948 8 Active 2023 Sujata Christie MD [address] [place] [address] elsie, [place], [address], [place] - SUJATA CHRISTIE MD [facility] 4 13:23:07 Problem Notes None recorded. Medical [...] VIA ORAL TODOS [facility] EN LA [facility] WITH 20MG CAPSULES 12/21 completed Duration : [...] ne propionat e 50 mcg/actua tion nasal spray,dl pension PUMP 2 SPRAYS INTO CADA VENTANIL LA DE LA NARIZ TODOS [facility] active Not Available Not [...] NAME: Hep A, adult; SU_FULL_ NAME: Sujata musnon; Not Available Not Available Not Available oxycodone [...] t Available Vitals Date Recorded Body height Heart rate Respiratory rate Body temperature Body mass index (BMI) Body weight Systolic And Diastolic Provider Name and Address Organization Details Last Updated DateTime 4 160.02 cm 92 /min 12 /min 98.1 [degF] 30.1 kg/m2 69603.7 g 114/66 mm[Hg] Minna MEHTA 4 14:14:25 Date Recorded Body height Heart rate Body temperature Body mass index (BMI) Body weight Systolic And Diastolic Provider Name and Address Organization Details Last Updated DateTime 5 160.02 cm 98 /min 98.4 [degF] 30.8 kg/m2 24015.0 7 g 89/59 mm[Hg] Minna CHRISTIE MD [facility] 13:39:10 Date Recorded Body height Respiratory rate Body temperature Body mass index (BMI) Body weight Systolic And Diastolic Provider Name and Address Organization Details Last Updated DateTime 160.02 cm 94 /min 97.9 [degF] 31.2 kg/m2 60144.2 6 g 116/77 mm[Hg] Minna CHRISTIE MD [facility] 13:03:34 Social History None recorded. Functional Status [...] ICD10 Code Diagnosis IMO Codes Diagnosis Note 725 Sujata Christie MD Main Office [address] [place] [address] 06/11/2023 13:58:53 06/11/2023 15:07:40 Irritable bowel syndrome with diarrhea K58.0 on/off pain.f/u GI Dr Stewart.fibe rhydration stool culturewat diet and exercise Nonulcer dyspepsia 84183 07 K30 H pylori urea breath testPPI or H2 blockers/a ntacids reviewedu/ s [facility] th examination [id number] Z00.00 822 Sujata Christie MD Main Office [address] [place] [address] 06/18/2023 15:26:38 06/19/2023 15:57:00 Irritable bowel syndrome with diarrhea K58.0 on/off pain.f/u GI Dr Stewart.fibe rhydration stool culture culture results 05/2023neg ative [facility] diet and exercise Nonulcer dyspepsia 56821 07 K30 pending results H pylori urea breath testPPI or H2 blockers/a ntacids reviewedu/ s abd Adult heal th examination 035202021 Z00.00 negative HIV and STI panelhyper lipidemia. diet and exercise reviewed.c altrate recommende df/u PCP Dysuria 44710532 R30.0 WBC 269; leukocytes pos;sympto matic dysuria.Pe nding B/cNitrofu rantoin 100m gpo bid x 7 d prescribed for presumed UTI.no allergies. potential side effects reviewed.c all or ER if worseningB D affirm ordered and collected Vitamin D deficiency 347 94352 E55.9 low levels. will replace w caltrate qd or bid. 1215 Sujata Christie MD Main Office [address] [place] [address] 07/20/2023 12:08:56 07/20/2023 12:31:13 Irritable bowel syndrome with diarrhea K58.0 dyspepsia/ GERD/bloat ing/pain; on/off sx.f/u GI Dr Stewart.fibe rhydration on dicyclomin e prn.negati ve [facility] diet and exercise Recurrent urinary tract infection N39.0 s/p E coli UTI s.p Nitrofuran toin for 7 days .sx recurrence . repeat U/a and U/cStart Nitrofuran toin 100m gpo bid x 7 d prescribed hydrationm ight benefit from suppressio n tx if recurrence .call or ER if worseningB D affirm ordered and collectedp ending u/s abd w renal on 07/28/23 1354 Sujata Christie MD Main Office [address] [place] [address] 08/02/2023 13:59:48 08/02/2023 15:09:50 Recurrent urinary tract infection 684251516 N39.0 s/p E coli UTI s.p Nitrofuran toin for 7 days x 2. 05/2023 ansd 06/2023rep eat U/a and U/chydrati onmight benefit from suppressio n tx if recurrence . Steatotic liver disease K76.0 by u/s abddiet and exerciseVi T e 800u qd 1671 Sujata Christie MD Main Office [address] [place] [address] 09/01/2023 11:32:35 09/06/2023 13:09:05 Recurrent urinary tract infection 331405564 N39.0 s/p E coli UTI s.p Nitrofuran toin for 7 days x 2. 05/2023 and 06/2023rec urrent sx.will prescribe Nitrofuran toin 100mg po bid x 7 days, then 100mg po qd for suppressio n tx. pt understand s correct instructio ns and use. goal of tx reviewed to decrease frequency and severity of UTI's. 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 to call if adverse events or concerns, or new infection, as dose would need to be adjusted to bid x 7 days.quest ions and concerns addressedh ydration Steatotic liver disease K76.0 diet and exerciseVi T e 800u qd 2056 Sujata Christie MD Main Office [address] [place] [phone] 09/30/2023 14:20:03 09/30/2023 15:06:43 Recurrent urinary tract infection 182716087 N39.0 s/p E coli UTI s.p Nitrofuran toin for 7 days x 2. 05/2023 and 06/2023 and 07/2023rec urrent sx.continu e Nitrofuran toin 100mg po qd. probably a few months while she gets evaluated by Urology/ SPECIAL SERVICES DIRECTOR for etiology and control of sx.she will call id sx of UTI recur, as she would need an increased dose. termite renewal inspector effects of nitrofuran oin reviewed to include pulmonary. Nitrofuran toin suppressio n tx will help decrease frequency and severity of UTI's.repe at u/cquestio ns and concerns addressedh ydrationu/ s bladder orderedf/u Urology/GY N.reports has remi w SPECIAL SERVICES DIRECTOR to discuss urine incontinen isac management Steatotic liver disease K76.0 diet and exerciseVi T e 800u qd [id number] Sujata Christie MD Main Office [address] [place] [phone] 11/22/2023 14:04:15 11/22/2023 14:38:51 Recurrent urinary tract infection [id number] N39.0 s/p E coli UTI s.p Nitrofuran toin for 7 days x 2. 05/2023 and 06/2023 and 07/2023rec urrent sx.pt decided to come off Nitrofuran tpin; and she is willing to re-start if develops new sx.if she develops UTI sx, she will call, repeat labs, tx, and re-start suppressio n tx w nitrofuran toing.f/u SPECIAL SERVICES DIRECTOR 12/2023no labs today.f/u Urology/GY N.reports has remi w SPECIAL SERVICES DIRECTOR to discuss urine incontinen isac management [id number] Sujata Christie MD Main Office [address] [place] [phone] 06/02/2024 13:19:02 06/02/2024 13:40:22 Recurrent urinary tract infection [id number] N39.0 s/p E coli UTI s.p Nitrofuran toin for 7 days x 2. 05/2023 and 06/2023 and 07/2023sta ble.labsto call if recurrence History of herpes zoster [id number] Z86.19 could benefit from Valtrex for flare up Irritable bowel syndrome with diarrhea [id number] K58.0 dyspepsia/ GERD/bloat ing/pain; on/off sx.f/u GI Dr Stewart.fibe rhydration on dicyclomin e prn.negati ve [facility] 2023 Steatotic liver disease [id number] K76.0 diet and exerciseVi T e 800u qdweight loss [id number] Sujata Christie MD Main Office [address] [place] [phone] 02/22/2025 13:25:10 02/22/2025 21:33:37 Recurrent urinary tract infection [id number] N39.0 s/p E coli UTI s.p Nitrofuran toin for 7 days x 2. 05/2023 and 06/2023 and 07/2023 u/a and U/c 2nd to dark urine color and urinary incontinen ce.f/u SPECIAL SERVICES DIRECTOR: might need workup, medication or surgery for urinary incontinen ce. if controlled , might lead to less infection recurrence appointmen t for PAP done.to call if recurrence Irritable bowel syndrome with diarrhea K58.0 stable.dys pepsia/[place] D/bloating /pain; on/off sx.f/u GI Dr Stewart.fibe rhydration on dicyclomin e prn which helps sx.negativ e [facility] diet and exercisepr obioticget reports of colonoscop y/EGF 05/2024 Steatotic liver disease [id number] K76.0 diet and exerciseVi T e 800u qdweight loss recommende dlabs orderedGLP 1 reviewed as options for weight loss which will be discussed again as options on next appointmen t. [id number] Sujata Christie MD Main Office [address] [place] [phone] 03/14/2025 13:32:53 03/14/2025 14:35:19 Recurrent urinary tract infection [id number] N39.0 s/p E coli UTI s.p Nitrofuran toin for 7 days x 2. 05/2023 and 06/2023 and 07/2023; 01/2025s/p nitrofuran toin for enterococc usu/a and U/c done today.f/u SPECIAL SERVICES DIRECTOR: for urinary incontinen ce management . controlled , might lead to less infection recurrence she might benefit from macrobid suppressio n tx to decrease frequency and severity of infections while SPECIAL SERVICES DIRECTOR gets evaluated. amoxicilli n bid po x 7 daysno allergy antibiotic sto call if recurrence Vaginal discharge [id number] 006 N89.8 32793 BD affirm collectedb acterial/f ungal swab obtained [id number] Sujata Christie MD Main Office [address] [place] [phone] 06/28/2025 12:45:41 06/28/2025 13:46:51 Recurrent urinary tract infection [id number] N39.0 E faecalis 01/2025s/p E coli UTI [...] sx or new UTI She will f/u SPECIAL SERVICES DIRECTOR: for urinary incontinen ce management . controlled , might lead to less infection recurrence and PAP smear; has scheduled mammo she might benefit from macrobid suppressio n tx to decrease frequency and severity of infections while SPECIAL SERVICES DIRECTOR gets evaluated. no allergy antibiotic sto call if recurrence Vaginal discharge [id number] 006 N89.8 18450 BD affirm collected by ptbacteria l/fungal swab obtained Health Concerns Section Related Observation LastModified by Organization Detai ls LastModified Time None Recorded Concern Status LastModified by Organization Details LastModified Time None Recorded Advance Directives Directive None Recorded Payers Insurance Date Sequence Insurance Name Policy Number Policy Jett Covered Member ID Jett Member ID Guarantor Name 06/25/2025 1 [place] Jannet Jeffrey Altman [id number] Jannet Jeffrey Altman 07/02/2025 2 [id number] Jannet Jeffrey Altman [id number] Jannet Jeffrey Altman Notes Date Note Type Note Provider Name and Address Organization Details Recorded Time 11/22/2023 text/html ROS as noted in the HPI f/u UTI/ Irritable bowel syndrome/ dyspepsia/constipation treated for UTI w E coli on 05/2023 and 06/2023; 07/2023.took nitrofuranton bid x 7 days, then started daily suppression for a month;she stopped nitrofurantoing 2 weeks agono UTI sx.urinary incontinence hx. n/a willing to keep daily suppression. no recurrence of sx. no back pain; no hematuris.will see SPECIAL SERVICES DIRECTOR for urine incontinenence evaluation; will be seen in December 2023no dysuria nor frequency. todayabd U/s 2022 ok including kidney w no stones nor abnormalities. has not had bladder u/s. she says she asked her PCP for one, and provider declined it.07/2023 U/s abd w fatty liver, and no mention of kidney stones.taking Vit E daily.no back pain. no fever. no hematuria, no n/v/d.IBS: on dicyclomine which helps w abd pain/spasm sx.GERD hx. dyspepsia. stable. chronic on/off.She iwll have routine EGD and colonoscopy on ast testing includes neg stool cultures neg; neg giardia; neg bacterial stool cultures; neg o+P Sujata Christie MD [address] [place] [address], [phone], [place] MAGNOLIA CHRISTIE MD [facility] 11/22/2023 15:03:16 06/02/2024 text/html ROS as noted in the HPI f/u UTI/ Irritable bowel syndrome/ dyspepsia/constipation treated for UTI w E coli on 05/2023 and 06/2023; 07/2023.no recent UTI's.no dysuria nor frequency. today abd U/s 2022 ok including kidney w no stones nor abnormalities.07/2023 U/s abd w fatty liver, and no mention of kidney stones. taking Vit E daily for fatty liver.no back pain. no fever. no hematuria, no n/v/d.IBS: on dicyclomine prn which helps w abd pain/spasm sx. will get colonoscopy and endoscopy on 06/11/24 Sujata Christie MD [address] [place] [address], [phone], MAGNOLIA CHRISTIE MD [facility] 06/05/2024 23:35:39 02/22/2025 text/html ROS as noted in the HPI f/u UTI/ Irritable bowel syndrome/ dyspepsia/constipation treated for UTI w E coli on 05/2023 and 06/2023; 07/2023.no recent UTI's.no dysuria/frequency whic is usually UTI sx.She says urine is yellow. no malodor.reports urine incontinence. no back pain.no back pain. no fever. no hematuria, no n/v/d.tried to make appointment with SPECIAL SERVICES DIRECTOR to discuss urine incontinence and PAP, , but unable to see them for months; she would like a PAP ; reports PAP has always been normal; reports last PAP was about a year ago. IBS: on dicyclomine prn which helps w abd pain/spasm sx.hx fatty liver; no DM. vit E use. 05/2024 u/a and u/c neg; BD affirm neg; SGOT 11; SGPT=17;electrolytes nl; treponemal ab neg; cQXE=258; CBC nl;abd u/s 11/2024 cholelithiasis; no cholecystitis; GB adenomyomatosis.abd U/s 2022 ok including kidney w no stones nor abnormalities.07/2023 U/s abd w fatty liver, and no mention of kidney stones. Sujata Christie MD [address] [place] [address], [phone], MAGNOLIA CHRISTIE MD [facility] 02/22/2025 17:00:10 03/14/2025 text/html ROS as noted in the HPI f/u UTI/ Irritable bowel syndrome/ dyspepsia/constipation treated for UTI w E coli on 05/2023 and 06/2023; 07/2023.Enteroccocus U/Cno dysuria/frequency which is usually UTI sx. she reports recurrence of UTI sx post tx.dysuriavaginal discharge; feels reports urine incontinence. no back pain. no back pain. no fever. no hematuria, no n/v/d. IBS: on dicyclomine prn which helps w abd pain/spasm sx. hx fatty liver; no DM. vit E use. 02/2025 hyperlipidemia; CMP unremarkable; CBCnl;01/2025 U/C enterococcus: no [id number]/202 4 u/a and u/c neg; BD affirm neg; SGOT 11; SGPT=17;electrolytes nl; treponemal ab neg; qFEM=721; CBC nl; abd u/s 11/2024 cholelithiasis; no cholecystitis; GB adenomyomatosis. abd U/s 2022 ok including kidney w no stones nor abnormalities. 07/2023 U/s abd w fatty liver, and no mention of kidney stones. Sujata Christie MD [address] [place] [address], [phone], MAGNOLIA CHRISTIE MD [facility] 03/14/2025 16:57:48 06/28/2025 text/html ROS as noted in the [...] but is concernedbut will F/U w/PCP and/or SPECIAL SERVICES DIRECTOR; is scheduled for mammogram, and will requests PAP testing as well. IBS: on dicyclomine prn which helps w abd pain/spasm sx. hx fatty liver; no DM. vit E use. 02/2025 hyperlipidemia; CMP unremarkable; CBC nl; 01/2025 U/C enterococcus: no susceptibilities 05/2024 u/a and u/c neg; BD affirm neg; SGOT 11; SGPT=17;electrolytes nl; treponemal ab neg; zMMG=407; CBC nl; abd u/s 11/2024 cholelithiasis; no cholecystitis; GB adenomyomatosis. abd U/s 2022 ok including kidney w no stones nor abnormalities. 07/2023 U/s abd w fatty liver, and no mention of kidney stones. Sujata Christie MD [address] [place] [address], [phone], MAGNOLIA - SUJATA CHRISTIE MD [facility] 06/28/2025 17:19:18 OBGyn Episode No OBEpisode recorded.
== END 2025-07-25 14:42 | disposition home or self-care (01) ==
LOC: HO.HSM 14:17
PROVIDERS: PCP Nurse Practitioner; Visit Provider Registered Nurse
DX: G44.209 Tension-type headache, unspecified, not intractable (principal); M47.812 Spondylosis without myelopathy or radiculopathy, cervical region; I72.9 Aneurysm of unspecified site
CPT/HCPCS: 99214

== ENCOUNTER → 2025-07-25 14:16 | Outpatient (BNVA) | payer MEDICARE, MEDICAID, SELFPAY | PROVIDERS: PCP Nurse Practitioner; Visit Provider Registered Nurse | DX: G44.209 Tension-type headache, unspecified, not intractable (principal); M47.812 Spondylosis without myelopathy or radiculopathy, cervical region; I72.9 Aneurysm of unspecified site | CPT/HCPCS: 99212 ==